=== PATIENT | female | born 1935 | race Caucasian/White ===

== ENCOUNTER 2023-12-17 15:50 | Inpatient (IN) | payer MEDICARE, OTHER, SELFPAY ==
[2023-12-17 15:51] VITALS: BP 152/75; PULSE 111; RESP 17; TEMP 36.4; O2SAT 100
[2023-12-17 15:53] VITALS: BP 152/75; PULSE 111; RESP 17; TEMP 36.4; O2SAT 100
[2023-12-17 16:53] VITALS: BP 142/77; PULSE 81; RESP 16; TEMP 36.4; O2SAT 97
[2023-12-17 17:09] VITALS: BMI 24.9
--- NOTE | 2023-12-17 17:16 | EDS_ITS ---
HPI <ABRAHAM Sears - Last Filed: 12/17/23 18:35> History of Present Illness Chief Complaint: Wound Narrative Narrative: 88-year-old female has no known past medical history but has not seen a doctor in years. She lives alone and her daughter states she has had gradual decline with dementia like symptoms and difficulty getting around. Family members come over to assist with meals and bathing. Her [id number] bathed her recently and noticed a large wound in her left groin prompting them to come in for evaluation. Patient states it has been there for couple weeks but cannot really provide details. She denies fever or chills and has no acute complaints. She takes no medications. Her daughter states they were trying to get her into a residential facility but they would not accept her without a primary care doctor. PFSH <ABRAHAM Sears - Last Filed: 12/17/23 18:35> [facility] Home Medications ?Medication ?Instructions ?Recorded ?Last Taken ?Type NK 12/17/23 Unknown History Allergy/AdvReac Type Severity Reaction Status Date / Time Penicillins Allergy Itching Verified 12/17/23 15:51 Surgical History History of appendectomy Social History (Updated 12/17/23 @ 18:[address] Alaina Montgomery, ) household members: none housing: house Smoking Status: Never smoker alcohol intake: never substance use type: does not use ROS <ABRAHAM Sears - Last Filed: 12/17/23 18:35> ROS ED ROS Narrative Constitutional: Negative for fever, chills, malaise. CVS: Negative for chest pain. Respiratory: Negative for shortness of breath, cough. GI: Negative for abdominal pain, nausea, vomiting, diarrhea. : Negative for dysuria. EXAM <ABRAHAM Sears Last Filed: 12/17/23 18:35> Physical Exam Narrative Exam Narrative: CONST: Patient sitting in no acute distress. EYES: Normal inspection. NECK: Normal inspection. RESP: No respiratory distress, CTAB. CVS: Regular rate and rhythm, no murmur, no gallop. ABD: Soft and nontender, no guarding or rebound, nondistended. SKIN: Large well-demarcated erythematous area with moisture and yeast in left groin fold extending towards the left labia majora. Normal genitalia, no necro sis. No fluctuance or crepitus. EXTREMITIES: Normal appearance, no pedal edema. NEURO: Alert to self and place. Does not know her age or the year. Responds appropriately and follows commands, moving all extremities. PSYCH: Normal affect. Const Vital Signs: 12/17/23 15:51 12/17/23 15:53 12/17/23 16:53 Temperature 97.5 F L 97.5 F L 97.6 F L Temperature Source Temporal Temporal Oral Pulse Rate 111 H 111 H 81 Respiratory Rate 17 17 16 Blood Pressure 152/75 H 152/75 H 142/77 H Blood Pressure Mean 100 100 98 Pulse Ox 100 100 97 Oxygen Delivery Method Room Air Room Air Room Air 12/17/23 18:00 Temperature 97.7 F L Temperature Source Oral Pulse Rate 94 Respiratory Rate 16 Blood Pressure 129/77 H Blood Pressure Mean 94 Pulse Ox 95 Oxygen Delivery Method Room Air <Dr. Vasyl Neves DO - Last Filed: 12/17/23 19:05> Physical Exam Const Vital Signs: 12/17/23 15:51 12/17/23 15:53 12/17/23 16:53 Temperature 97.5 F L 97.5 F L 97.6 F L Temperature Source Temporal Temporal Oral Pulse Rate 111 H 111 H 81 Respiratory Rate 17 17 16 Blood Pressure 152/75 H 152/75 H 142/77 H Blood Pressure Mean 100 100 98 Pulse Ox 100 100 97 Oxygen Delivery Method Room Air Room Air Room Air 12/17/23 18:00 Temperature 97.7 F L Temperature Source Oral Pulse Rate 94 Respiratory Rate 16 Blood Pressure 129/77 H Blood Pressure Mean 94 Pulse Ox 95 Oxygen Delivery Method Room Air MDM <ABRAHAM Sears - Last Filed: 12/17/23 18:35> [facility] Narrative Medical decision making narrative: History gathered from: Patient, daughter 88-year-old female was evaluated for a left groin wound that is consistent with an extensive candidal infection. Family also is concerned for gradual decline at home consistent with likely underlying dementia. Family does not feel she is safe at home and would like her placed in a [facility]. They were unable to do this outpatient because she does not have a primary care doctor. She appears well and nontoxic. She was initially tachycardic at 111, but during my exam heart rate was around 100 bpm and after IV fluids is down to 81. She does not look septic or toxic. White count is 13.9, hemoglobin 14.8, potassium slightly low at 3.0 which was replaced by mouth, BUN 19, creatinine 1.11. UA shows asymptomatic bacteriuria. I discussed the case with hospitalist for admission who plans to give IV Ancef in case there is also cellulitic component of the candidiasis. Patient was admitted to [facility] in stable condition. Lab Data Attestation: I reviewed the patient's lab results. Labs: Laboratory Results - last 24 hr 12/17/23 12/17/23 15:20 17:27 WBC 13.9 H RBC 5.62 H Hgb 14.8 Hct 46.1 MCV 82.0 MCH 26.3 L MCHC 32.1 RDW Std Deviation 41.9 RDW Coeff of [place] 14.2 Plt Count 433 MPV 9.2 Immature Gran % (Auto) 0.500 Neut % (Auto) 86.3 H Lymph % (Auto) 8.1 L [place] % (Auto) 4.3 Eos % (Auto) 0.1 Baso % (Auto) 0.7 Absolute Neuts (auto) 12.0 H Absolute Lymphs (auto) 1.12 Nucleated RBC % 0 Sodium 134 L Potassium 3.0 L Chloride 98 Carbon Dioxide 25.0 Anion Gap 11 BUN 19 H Creatinine 1.11 H Estim Creat Clear Calc 29.65 Est GFR (MDRD) Af Amer 60 Est GFR (MDRD) Non-Af 49 L BUN/Creatinine Ratio 17.1 Glucose 105 Calcium 9.1 Urine Color Odilia Urine Clarity Clear Urine pH 6.0 Ur Specific [place] 1.020 Urine Protein 15 H Urine Glucose (UA) Normal Urine Ketones 5 H Urine Occult Blood 150 H Urine Nitrite Negative Urine Bilirubin 1 H Urine Urobilinogen 1 H Ur Leukocyte Esterase 100 H Urine RBC 0-5 SEEN Urine WBC 0-5 SEEN Ur Squamous Epith Cells 0-5 SEEN Urine Bacteria 2+ Hyaline Casts 0-5 SEEN Urine Mucus 1+ <Dr. Vasyl Neves, DO - Last Filed: 12/17/23 19:05> MDM MDM Narrative Medical decision making narrative: History gathered from: Patient, daughter 88-year-old female was evaluated for a left groin wound that is consistent with an extensive candidal infection. Family also is concerned for gradual decline at home consistent with likely underlying dementia. Family does not feel she is safe at home and would like her placed in a [facility]. They were unable to do this outpatient because she does not have a primary care doctor. She appears well and nontoxic. She was initially tachycardic at 111, but during my exam heart rate was around 100 bpm and after IV fluids is down to 81. She does not look septic or toxic. White count is 13.9, hemoglobin 14.8, potassium slightly low at 3.0 which was replaced by mouth, BUN 19, creatinine 1.11. UA shows asymptomatic bacteriuria. I discussed the case with hospitalist for admission who plans to give IV Ancef in case there is also cellulitic component of the candidiasis. Patient was admitted to [facility] in stable condition. I have personally performed a face to face assessment of the patient and have reviewed the MICHAEL Note. I performed a substantive portion of the visit including all aspects of the following. My pardo findings include: History is 88-year-old female who lives at home is cared for by family. They are looking to get her placed at SNF. She has no primary care doctor and they are having difficulty getting her accepted to facility without 1. Patient has rash on the left inguinal region. No reported fevers. Exam is patient is very pleasant alert but not orientated. Vital signs appear stable slightly hypertensive. She has diffuse erythematous rash in the left inguinal region. There is a sharp line of demarcation on the left upper thigh that would certainly be indicative of a candidiasis infection. The skin on the adipose tissue of the abdomen left lower quadrant is rather thickened and purpleish hue. There is sloughing of the skin. These findings continue into the medial thigh suprapubic region and slightly involve the labia majora. I do not appreciate any evidence at this time of Jake's. I do not appreciate any abscess. Medical Decison Making patient received antibiotics and topical nystatin. Culture of urine will be obtained. Plan is going to be admission for IV antibiotics and treatment of the yeast skin infection. She will need placement. History & Record Review Discussion w/independent historian: Patient and Family Lab Data Labs: Laboratory Results - last 24 hr 12/17/23 12/17/23 15:20 17:27 WBC 13.9 H RBC 5.62 H Hgb 14.8 Hct 46.1 MCV 82.0 MCH 26.3 L MCHC 32.1 RDW Std Deviation 41.9 RDW Coeff of [place] 14.2 Plt Count 433 MPV 9.2 Immature Gran % (Auto) 0.500 Neut % (Auto) 86.3 H Lymph % (Auto) 8.1 L [place] % (Auto) 4.3 Eos % (Auto) 0.1 Baso % (Auto) 0.7 Absolute Neuts (auto) 12.0 H Absolute Lymphs (auto) 1.12 Nucleated RBC % 0 Sodium 134 L Potassium 3.0 L Chloride 98 Carbon Dioxide 25.0 Anion Gap 11 BUN 19 H Creatinine 1.11 H Estim Creat Clear Calc 29.65 Est GFR (MDRD) Af Amer 60 Est GFR (MDRD) Non-Af 49 L BUN/Creatinine Ratio 17.1 Glucose 105 Calcium 9.1 Urine Color Odilia Urine Clarity Clear Urine pH 6.0 Ur Specific [place] 1.020 Urine Protein 15 H Urine Glucose (UA) Normal Urine Ketones 5 H Urine Occult Blood 150 H Urine Nitrite Negative Urine Bilirubin 1 H Urine Urobilinogen 1 H Ur Leukocyte Esterase 100 H Urine RBC 0-5 SEEN Urine WBC 0-5 SEEN Ur Squamous Epith Cells 0-5 SEEN Urine Bacteria 2+ Hyaline Casts 0-5 SEEN Urine Mucus 1+ Discharge Plan Dx/Rx/DC Orders Clinical Impression: Antonina rash of groin, Debility, Hypokalemia, Asymptomatic bacteriuria, Cellulitis of left groin Disposition Disposition: Acute Care [facility] Discharge Date/Time: 12/17/23 19:01
[2023-12-17] MEDS: 0.9% Normal Saline (1000mL) 1,000 ML 999 ML IV (17:19)
[2023-12-17 17:26] LABS: Absolute Lymphocyte Count 1.12 X10^3/uL (0.83-4.51); Basophil% 0.7 % (0-1); Eosinophil# 0.01 X10^3/uL; Eosinophils% 0.1 % (0-5); Hematocrit 46.1 % (37-47); Hemoglobin 14.8 g/dL (12.0-15.0); Lymphocyte # 1.12 X10^3/ul (0.83-4.51); Lymphocyte % 8.1 % (19-41); Mean Corp Hgb Conc 32.1 g/dL (32-36); Mean Corpuscular Hgb 26.3 pg (27.0-32.0); Mean Platelet Vol. 9.2 fl (6.2-12.0); Monocyte% 4.3 % (0-10); NRBC Flagged by Analyzer 0 % (0-5); Neutrophil # 11.98 X10^3/uL (2.7-7.7); Neutrophil % 86.3 % (47-70); Platelet Count 433 K/mm3 (150-450); RBC Distribution Width CV 14.2 % (11.6-14.6); RBC Distribution Width SD 41.9 fl (35.1-43.9); Red Blood Count 5.62 M/mm3 (4.2-5.4); White Blood Count 13.9 K/mm3 (4.4-11.0)
[2023-12-17 17:41] LABS: Color, Urine Amber (Yellow); Glucose, Dipstick Normal (Normal); Ketone-Dipstick 5 mg/dl (Negative); Leukocyte Esterase-Dipstick 100 /ul (Negative); Nitrite-Dipstick Negative (Negative); Occult Blood-Urine 150 /ul (Negative); Protein-Dipstick 15 mg/dl (Negative); Urine Clarity Clear (Clear); Urine Urobilinogen 1 mg/dl (Normal)
[2023-12-17 17:42] LABS: Anion Gap 11 (5-15); BUN 19 mg/dL (7-18); BUN/Creat Ratio 17.1 RATIO (10-20); Calcium,Total 9.1 mg/dL (8.5-10.1); Chloride 98 mmol/L (98-107); Creatinine, Serum 1.11 mg/dL (0.55-1.02); EST Glomerular Filtration Rate 49 mL/min (>60); Est Glom Filt Rate - Afr Amer 60 mL/min (>60); Estimated Creatinine Clearance 29.65 ml/min; Glucose 105 mg/dL (74-106); Sodium Level 134 mmol/L (136-145)
[2023-12-17 18:00] VITALS: BP 129/77; PULSE 94; RESP 16; TEMP 36.5; O2SAT 95
[2023-12-17 18:01] LABS: Urine Bilirubin Dipstick 1 mg/dL (Negative)
[2023-12-17 18:09] LABS: Bacteria 2+ /hpf (None Seen); Mucous, Urine 1+ /hpf (<or=2+)
[2023-12-17 18:10] LABS: Squamous Epithelial Cells - UA 0-5 SEEN /hpf (5-10)
[2023-12-17 18:11] LABS: Hyaline Cast 0-5 SEEN /lpf (0-5); Red Blood Cells-Urine 0-5 SEEN /hpf (0-5); White Blood Cells 0-5 SEEN /hpf (0-5)
[2023-12-17] MEDS: Potassium Chloride Oral Tablet 20 MEQ 40 MEQ PO (18:19)
--- NOTE | 2023-12-17 18:25 | HP.PCM.HOS_ITS ---
HPI - General General Date of Admission: 12/17/23 Date of Service: 12/17/23 Chief Complaint: Left groin wound/debility HPI Narrative MIRI GUZMAN, is a 88 F who presented to the emergency department at [facility] on 12/17/2023 with worsening debility and generalized weakness as well as a left groin wound that has progressively gotten worse.. Patient lives alone and family states they have been trying to get her into a facility as they feel she is currently unable to care for herself and is having progressively worsening debility and memory however they have been unable to do so thus far and then recently family noticed this left groin wound and were concerned it could potentially be infected so brought her to the emergency department. The patient has no significant complaints at the time of admission other than pain in the groin where the wound is located. It appears to be very superficial without any deep tracking areas but is significantly erythematous, tender, and swollen. Patient states she eats too much at home however daughter reports that she is very little overall. Vital signs on presentation showed temperature of 97.5, heart rate 111, blood pressure was 152/75, respiratory rate was 15 and oxygen saturations were 100% on room air. CBC does shows a leukocytosis with a white count of 13.9 and a left shift having 86.3% neutrophilia. Her chemistry panel shows mild hyponatremia with a sodium of 134, hypokalemia with potassium of 3.0 and elevated BUN at 19 with a serum creatinine of 1.11. No recent documentation of serum creatinine is in the chart. Her urine does show some bacteria with no white cells and patient is asymptomatic. Urine specific gravity was 1.02 In the emergency department. IV fluids were given at 1 L and she was given p.o. potassium. PFS no medical history (Patient does not see a medical doctor regularly) Home Medications ?Medication ?Instructions ?Recorded ?Last Taken ?Type NK 12/17/23 Unknown History Allergy/AdvReac Type Severity Reaction Status Date / Time Penicillins Allergy Itching Verified 12/17/23 15:51 unable to obtain (Patient with significant memory difficulties) Surgical History History of appendectomy unable to obtain (Patient with significant memory difficulties) Social History (Updated 12/17/23 @ 18:[address] Alaina Montgomery, DO) household members: none housing: house Smoking Status: Never smoker alcohol intake: never substance use type: does not use ROS Review of Systems ROS Unobtainable: other Details: Difficult to obtain due to patient's memory issues however she has no subjective complaints Vital Signs Vital Signs Vital Signs: 12/17/23 15:51 12/17/23 15:53 12/17/23 16:53 Temperature 97.5 F L 97.5 F L 97.6 F L Temperature Source Temporal Temporal Oral Pulse Rate 111 H 111 H 81 Respiratory Rate 17 17 16 Blood Pressure 152/75 H 152/75 H 142/77 H Blood Pressure Mean 100 100 98 Pulse Ox 100 100 97 Oxygen Delivery Method Room Air Room Air Room Air 12/17/23 18:00 Temperature 97.7 F L Temperature Source Oral Pulse Rate 94 Respiratory Rate 16 Blood Pressure 129/77 H Blood Pressure Mean 94 Pulse Ox 95 Oxygen Delivery Method Room Air Weight Weight: 59.8 kg Body Mass Index (BMI) 24.9 Physical Exam Const alert, no apparent distress and average body habitus; Negative for oriented x3 Constitutional Narrative: Elderly, very pleasant, white female, sitting up in bed, daughter at bedside, patient appears comfortable and nontoxic, oriented to self and place but not time General Appearance: cooperative HEENT normocephalic, head/scalp atraumatic and moist oral mucous membranes; Negative for hearing grossly normal bilaterally HEENT Narrative: Upper dentures in place, lower dentition is poor with decaying teeth, mild to moderate hearing loss Eyes PERRL, EOMs intact bilaterally and conjunctivae normal Eyes Narrative: No scleral icterus Neck no lymphadenopathy and supple Neck Narrative: Trachea midline, no thyroid enlargement Resp normal respiratory effort, no retractions, no use of accessory muscles and clear to auscultation bilaterally Auscultation: Negative for rales, rhonchi or wheezes Cardio regular rate, regular rhythm, S1 normal heart sound, S2 normal heart sound, no murmurs, no rub, no gallops and no clicks GI normal to inspection, nondistended, normoactive bowel sounds, soft to palpation and non-tender Extremity no clubbing, cyanosis or edema Extremity Narrative: Extremely poor nail care with extremely long toenails overlapping and curling, onychomycosis noted, bilateral knees appear to be markedly arthritic Skin Skin Narrative: Large superficial appearing wound on the lower left abdomen and upper thigh deep into the pannus area, no significant purulent drainage or deep wounds with tracking Neuro moves all extremities and no focal motor deficits Neuro Narrative: Significant generalized weakness proximal greater than distal Speech: speech normal Psych affect normal Psych Narrative: Very pleasantly confused, interacts appropriately Results Lab / Micro Data 12/17/23 15:20 12/17/23 15:20 Labs: Laboratory Results - last 24 hr 12/17/23 15:20: WBC 13.9 H, RBC 5.62 H, Hgb 14.8, Hct 46.1, MCV 82.0, MCH 26.3 L , MCHC 32.1, RDW Std Deviation 41.9, RDW Coeff of [place] 14.2, Plt Count 433, MPV 9.2, Immature Gran % (Auto) 0.500, Neut % (Auto) 86.3 H, Lymph % (Auto) 8.1 L, [place] % (Auto) 4.3, Eos % (Auto) 0.1, Baso % (Auto) 0.7, Absolute Neuts (auto) 12.0 H, Absolute Lymphs (auto) 1.12, Nucleated RBC % 0, Sodium 134 L, Potassium 3.0 L, Chloride 98, Carbon Dioxide 25.0, Anion Gap 11, BUN 19 H, Creatinine 1.11 H, Estim Creat Clear Calc 29.65, Est GFR (MDRD) Af Amer 60, Est GFR (MDRD) Non- Af 49 L, BUN/Creatinine Ratio 17.1, Glucose 105, Calcium 9.1 12/17/23 17:27: Urine Color Odilia, Urine Clarity Clear, Urine pH 6.0, Ur Specific [place] 1.020, Urine Protein 15 H, Urine Glucose (UA) Normal, Urine Ketones 5 H, Urine Occult Blood 150 H, Urine Nitrite Negative, Urine Bilirubin 1 H, Urine Urobilinogen 1 H, Ur Leukocyte Esterase 100 H, Urine RBC 0-5 SEEN, Urine WBC 0-5 SEEN, Ur Squamous Epith Cells 0-5 SEEN, Urine Bacteria 2+, Hyaline Casts 0-5 SEEN, Urine Mucus 1+ Assessment & Plan Assessment/Plan (1) Asymptomatic bacteriuria: (2) Hypokalemia: (3) Debility: (4) Antonina rash of groin: (5) Leukocytosis: (6) Hyponatremia: (7) Elevated serum creatinine: (8) Dehydration: (9) Cellulitis of left groin: PLAN: Plan Large left lower abdomen and upper thigh wound/cellulitis -No significant depth to the wound however it is superficially large and extends into the perineum -Start Ancef as patient has penicillin allergy with itching -Cultures pending -Nystatin powder -Wound care consultation Hypokalemia -Patient repleted with 40 mill equivalents p.o. potassium in the emergency department -Repeat in a.m. -Check a.m. magnesium and phosphorus level Elevated serum creatinine secondary to dehydration -Baseline is unclear however patient appears to be dehydrated with a markedly elevated specific gravity of her urine at 1.02 -Was given 1 L IV fluids emergency department -Repeat BMP in a.m. -Highly suspect dehydration as family reports p.o. intake is poor Debility/generalized weakness due to advancing age -PT/OT consultation -Case management/social work consultation for assistance with placement Mild hyponatremia -Sodium is 134 -IV fluids given by emergency department -Liberalized diet -Repeat lab in a.m. Leukocytosis -Highly suspect secondary to above infection as well as dehydration with hemoconcentration -Repeat lab in a.m. Poor p.o. intake -Highly suspect patient is malnourished -Dietitian consult -Add scheduled Ensure -[place] diet Asymptomatic bacteriuria -No treatment required -Suspect related to poor care Poor nail care -Toenails are overgrown and overlapping and curling -Consult podiatry for assistance History of diverticulosis with previous diverticular bleed -Hemoglobin is stable with no signs of blood loss -Monitor clinically Suspected dementia -Patient with significant memory loss and is only oriented x 2 at baseline -No formal diagnosis of dementia however patient does not follow with primary care physician -Patient does not appear to be able to care for herself any longer and will likely need placement at discharge DVT prophylaxis -Subcu Lovenox daily CODE STATUS DNR CCA with no intubation as clarified on admission with POA Charges/Coding Visit Charges Inpatient E&M: 34624 Init Hosp L2
[2023-12-17 18:50] VITALS: BP 129/77; PULSE 94; RESP 16; TEMP 36.5; O2SAT 95
[2023-12-17 19:13] VITALS: BMI 24.5
[2023-12-17 19:24] VITALS: BP 146/81; PULSE 80; RESP 18; TEMP 36.9; O2SAT 100
[2023-12-17] MEDS: 0.9% Saline Lock 10 ML Syringe IV (21:03)
[2023-12-17] MEDS: Cefazolin 1 GM/50 ML BAG IV (21:03)
[2023-12-17] MEDS: Nystatin Powder 15gm Bottle 1 APPLIC TOPICAL (21:03)
[2023-12-17] MEDS: 0.9% Normal Saline (250mL Bag) 250 ML 15 ML IV (21:03)
[2023-12-17] MEDS: Menthol/Lanolin/Calamine/Znox 113 GM Tube 1 APPLIC TOPICAL (21:04)
[2023-12-17] MEDS: Multivitamin (Healthy Eyes) Capsule 1 CAP PO (21:04)
[2023-12-17] MEDS: RisperiDONE 0.25 MG Tablet PO (21:04)
[2023-12-18 02:14] VITALS: BP 137/77; PULSE 72; RESP 16; TEMP 36.5; O2SAT 96
[2023-12-18 05:31] VITALS: BMI 25.0
[2023-12-18] MEDS: Nystatin Powder 15gm Bottle 1 APPLIC TOPICAL ×3 (05:33→22:17)
[2023-12-18] MEDS: Cefazolin 1 GM/50 ML BAG IV ×3 (05:33→22:16)
[2023-12-18] MEDS: Menthol/Lanolin/Calamine/Znox 113 GM Tube 1 APPLIC TOPICAL ×3 (05:34→22:17)
[2023-12-18 07:15] VITALS: O2SAT 95
[2023-12-18 07:17] LABS: Absolute Lymphocyte Count 1.31 X10^3/uL (0.83-4.51); Absolute Neutrophil Count 6.8 X10^3/uL (2.0-7.7); Basophil# 0.06 X10^3/uL; Basophil% 0.7 % (0-1); Eosinophil# 0.09 X10^3/uL; Hematocrit 40.9 % (37-47); Hemoglobin 13.3 g/dL (12.0-15.0); Lymphocyte # 1.31 X10^3/ul (0.83-4.51); Mean Corp Hgb Conc 32.5 g/dL (32-36); Mean Corpuscular Hgb 26.8 pg (27.0-32.0); Mean Corpuscular Volume 82.3 fL (81-99); Mean Platelet Vol. 9.9 fl (6.2-12.0); Monocyte# 0.48 X10^3/uL; Monocyte% 5.5 % (0-10); NRBC Flagged by Analyzer 0 % (0-5); Neutrophil % 77.6 % (47-70); Platelet Count 339 K/mm3 (150-450); RBC Distribution Width CV 14.2 % (11.6-14.6); RBC Distribution Width SD 42.3 fl (35.1-43.9); Red Blood Count 4.97 M/mm3 (4.2-5.4); White Blood Count 8.8 K/mm3 (4.4-11.0)
[2023-12-18 07:55] VITALS: BP 134/73; PULSE 80; RESP 18; TEMP 36.4; O2SAT 100
[2023-12-18] MEDS: Multivitamin (Healthy Eyes) Capsule 1 CAP PO ×2 (07:58→22:16)
[2023-12-18] MEDS: Enoxaparin 30 MG/0.3 ML Syringe SC (07:58)
[2023-12-18 07:59] LABS: ALB/GLOB Ratio 0.6 RATIO (0.9-2.4); AST(SGOT) 17 U/L (15-37); Alanine Aminotransfer ALT/SGPT 10 U/L (13-56); Albumin, Serum 2.2 g/dL (3.2-5.0); Alkaline Phosphatase 210 U/L (45-117); Anion Gap 8 (5-15); BUN 14 mg/dL (7-18); BUN/Creat Ratio 15.9 RATIO (10-20); Calcium,Total 7.9 mg/dL (8.5-10.1); Chloride 106 mmol/L (98-107); Creatinine, Serum 0.88 mg/dL (0.55-1.02); EST Glomerular Filtration Rate 65 mL/min (>60); Est Glom Filt Rate - Afr Amer 78 mL/min (>60); Estimated Creatinine Clearance 37.47 ml/min; Globulin 3.4 g/dL (2.2-4.2); Glucose 105 mg/dL (74-106); Magnesium 2.4 mg/dL (1.6-2.6); Phosphorus 2.3 mg/dL (2.5-4.9); Potassium 3.3 mmol/L (3.5-5.1); Protein, Total 5.6 g/dL (6.4-8.2); Sodium Level 135 mmol/L (136-145); Thyroid Stim Hormone (TSH) 1.29 uIU/mL (0.358-3.74)
--- NOTE | 2023-12-18 13:04 | CASEMGMT ---
Social Work SW met w/pt in room in regard to prior level of function and anticipated discharge plan. SW then called pt's daughter as well to verify the information, as it is documented that pt has a poor memory. PCP: None Specialists: None Pharmacy: None as pt is not on any medications Insurance/Prescription Coverage: Pt has Medicare, [employer]. As per the daughter [employer] is a associate of science in nursing care policy. Pt is not certain if she has prescription coverage or not, she states her risk and insurance consultant takes care of setting her up w/her insurance. LW/POA: Pt states daughter Yuly Pereyra is POA, papers not on the chart. SW asked daughter to bring them in. LNOK: Pt has two children, Yuly and Simone Transportation: As per pt she still drives but daughter gets her groceries. As per daughter, pt no longer drives, as she has macular degeneration. Daughter states pt gave up driving on her own. Living arrangements/Prior level of function: As per pt, she is fully independent at home, does her own personal care, cooking, cleaning. Pt states does not use DME at home, but uses a cane when out. [place] two story home, but stays in a newer addition that is one floor. Pt states that there are people at the farm daily from 6am-8pm who are available to help. As per daughter, pt is not bathing, not changing her clothes. Daughter also states pt has stopped warming up food for herself, and is not eating much. Daughter states pt has to take her teeth out to eat and won't do this in front of daughter so will not eat in front of her. She states pt has memory issues, thinks she has dementia. SNF/HHC/DME: Pt has never been to a SNF. Pt uses a cane at times. Pt has never had home health care. Plan: SNF SW spoke w/pt about plan at discharge. SW provided to pt a list from [facility] of long-term facilities in network w/insurance, in pt's preferred geographic area, and complete w/quality and resource use data. Pt agreeable to SW calling daughter to discuss plan. SW spoke w/daughter about plan. She states pt is not caring for herself and needs to go to SNF, needs nursing care. She states pt is having difficulty ambulating as well. She states they looked at [facility] and has been speaking w/them, but was told pt cannot go there without seeing a PCP first. SW explained now that pt is here in the hospital we may be able to get her into [facility] and will send the referral. SW explained the SNF list is in the room should additional choices be needed. SW explained did speak w/pt about it and pt did not seem opposed to it. She states pt was agreeable to [facility], but then today is saying she wants to go home. SW did review PT w/daughter, pt walked 22 feet contact guard. Daughter will speak w/pt again and agreeable to have SW send the referral. SW sent initial referral to [facility], will continue to follow. MONICA Huber
[2023-12-18] MEDS: 0.9% Normal Saline (250mL Bag) 250 ML 15 ML IV (14:29)
[2023-12-18 14:31] VITALS: BP 101/51; PULSE 84; RESP 18; TEMP 36.3; O2SAT 99
--- NOTE | 2023-12-18 15:42 | PN.HOSP_ITS ---
Reason for Visit Reason for Visit: Diagnoses Other sites of candidiasis (12/17/23) Elevated white blood cell count, unspecified (12/17/23) Dehydration (12/17/23) Hypo-osmolality and hyponatremia (12/17/23) Hypokalemia (12/17/23) Cellulitis of groin (12/17/23) Other malaise (12/17/23) Other specified abnormal findings of blood chemistry (12/17/23) Bacteriuria (12/17/23) Subjective Subjective Patient was seen and examined today, she does not appear to be in any distress at the time my examination, she is on room air at this time, nursing is changing her wound dressing over the left lower abdomen and groin area. Objective Data Objective Data Vital Signs: Vital Signs Temp Pulse Resp BP Pulse Ox O2 Del Method 97.4 F L 84 18 101/51 L 99 Room Air 12/18/23 14:31 12/18/23 14:31 12/18/23 14:31 12/18/23 14:31 12/18/23 14:31 12/18/23 14:31 Oxygen Delivery Method Room Air Weight: 60.056 kg Body Mass Index (BMI) 25.0 Intake & Output: Intake and Output for Last 24 Hours 12/16/23 12/17/23 12/18/23 23:59 23:59 23:59 Intake Total 1050 / 1050 345.25 / 345.25 Output Total 200 / 200 Balance 1050 / 1050 145.25 / 145.25 Lab / Micro Data 12/18/23 06:36 12/18/23 06:36 Labs: Laboratory Results - last 24 hr 12/17/23 15:20: WBC 13.9 H, RBC 5.62 H, Hgb 14.8, Hct 46.1, MCV 82.0, MCH 26.3 L , MCHC 32.1, RDW Std Deviation 41.9, RDW Coeff of Kanchan 14.2, Plt Count 433, MPV 9.2, Immature Gran % (Auto) 0.500, Neut % (Auto) 86.3 H, Lymph % (Auto) 8.1 L, Spalding % (Auto) 4.3, Eos % (Auto) 0.1, Baso % (Auto) 0.7, Absolute Neuts (auto) 12.0 H, Absolute Lymphs (auto) 1.12, Nucleated RBC % 0, Sodium 134 L, Potassium 3.0 L, Chloride 98, Carbon Dioxide 25.0, Anion Gap 11, BUN 19 H, Creatinine 1.11 H, Estim Creat Clear Calc 29.65, Est GFR (MDRD) Af Amer 60, Est GFR (MDRD) Non- Af 49 L, BUN/Creatinine Ratio 17.1, Glucose 105, Calcium 9.1 12/17/23 17:27: Urine Color Odilia, Urine Clarity Clear, Urine pH 6.0, Ur Specific [place] 1.020, Urine Protein 15 H, Urine Glucose (UA) Normal, Urine Ketones 5 H, Urine Occult Blood 150 H, Urine Nitrite Negative, Urine Bilirubin 1 H, Urine Urobilinogen 1 H, Ur Leukocyte Esterase 100 H, Urine RBC 0-5 SEEN, Urine WBC 0-5 SEEN, Ur Squamous Epith Cells 0-5 SEEN, Urine Bacteria 2+, Hyaline Casts 0-5 SEEN, Urine Mucus 1+ 12/18/23 06:36: WBC 8.8, RBC 4.97, Hgb 13.3, Hct 40.9, MCV 82.3, MCH 26.8 L, MCHC 32.5, RDW Std Deviation 42.3, RDW Coeff of Kanchan 14.2, Plt Count 339, MPV 9.9, Immature Gran % (Auto) 0.200, Neut % (Auto) 77.6 H, Lymph % (Auto) 15.0 L, Spalding % (Auto) 5.5, Eos % (Auto) 1.0, Baso % (Auto) 0.7, Absolute Neuts (auto) 6.8, Absolute Lymphs (auto) 1.31, Nucleated RBC % 0, Sodium 135 L, Potassium 3.3 L, Chloride 106, Carbon Dioxide 21.0, Anion Gap 8, BUN 14, Creatinine 0.88, Estim Creat Clear Calc 37.47, Est GFR (MDRD) Af Amer 78, Est GFR (MDRD) Non-Af 65, BUN/Creatinine Ratio 15.9, Glucose 105, Calcium 7.9 L, Phosphorus 2.3 L, Magnesium 2.4, Total Bilirubin 0.70, AST 17, ALT 10 L, Alkaline Phosphatase 210 H, Total Protein 5.6 L, Albumin 2.2 L, Globulin 3.4, Albumin/Globulin Ratio 0.6 L, TSH 1.29 Micro: Microbiology 12/17/23 18:30 Wound - Abdominal Gram Stain - Final 12/17/23 18:30 Wound - Abdominal Wound Culture - Preliminary Gram positive organism Physical Exam Const alert, no apparent distress and well nourished Constitutional Narrative: Patient exhibits mild cognitive impairment HEENT head/scalp atraumatic Head and Scalp: normocephalic Eyes PERRL, EOMs intact bilaterally and conjunctivae normal Neck supple and no JVD Resp normal respiratory effort, no retractions, no use of accessory muscles and clear to auscultation bilaterally Cardio regular rate, regular rhythm, S1 normal heart sound, S2 normal heart sound and no rub GI soft to palpation and non-distended GI Narrative: There is an area of what appears to be ecchymosis over the left lower abdominal fold extending into the left groin area and into the left proximal leg, the skin appears to be darkened in this area, there is no significant open areas noted. Extremity Extremity Narrative: There appears to be some proximal ecchymosis over the left upper leg near the groin area Skin Skin Narrative: Ecchymosis over the left lower abdominal area and left groin area is noted extending into the left upper leg Neuro CN's II-XII intact bilaterally and no sensory deficits noted Sensorium / Orientation: awake, alert and oriented to person Psych Psych Narrative: Patient exhibits mild cognitive impairment Assessment & Plan Assessment/Plan (1) Hypokalemia: PLAN: Plan 1. Hypokalemia-patient will be given additional potassium today, BMP will be rechecked tomorrow #2 mild dehydration-creatinine is improved today, continue IV fluids #3 left groin/lower abdominal ecchymosis-etiology unclear, patient will be seen by wound nurse, I have elected to keep the patient on Ancef at this time #4 generalized debility/fkfx-rkmjdhr-idrfyvm has been seen by PT and OT, it is likely she will need to go to an extended care facility for inpatient rehab services. #5 bacteriuria-this is not significant, I do not believe the patient has cystitis at the present time Total clinical time spent by myself addressing the patient's medical issues, reviewing all of her data, and collaborating with patient's care team: 35 minutes Charges/Coding Visit Charges Inpatient E&M: 71523 Subs Hosp L2
[2023-12-18] MEDS: Potassium Chloride Oral Tablet 20 MEQ 40 MEQ PO (16:31)
[2023-12-18 17:40] VITALS: BP 152/85; PULSE 90; RESP 18; TEMP 36.9; O2SAT 99
[2023-12-18 20:00] VITALS: BP 124/69; PULSE 82; RESP 16; TEMP 36.8; O2SAT 98
[2023-12-18] MEDS: RisperiDONE 0.25 MG Tablet PO (22:16)
[2023-12-19 02:00] VITALS: BP 120/77; PULSE 78; RESP 16; TEMP 36.6; O2SAT 99
[2023-12-19 05:39] VITALS: BMI 25.4
[2023-12-19 05:48] LABS: Anion Gap 7 (5-15); BUN 12 mg/dL (7-18); BUN/Creat Ratio 17.2 RATIO (10-20); Calcium,Total 8.3 mg/dL (8.5-10.1); Chloride 106 mmol/L (98-107); EST Glomerular Filtration Rate 85 mL/min (>60); Est Glom Filt Rate - Afr Amer 102 mL/min (>60); Estimated Creatinine Clearance 41.22 ml/min; Glucose 79 mg/dL (74-106); Potassium 3.6 mmol/L (3.5-5.1); Sodium Level 135 mmol/L (136-145)
[2023-12-19] MEDS: Cefazolin 1 GM/50 ML BAG IV ×3 (06:23→20:15)
[2023-12-19] MEDS: Nystatin Powder 15gm Bottle 1 APPLIC TOPICAL ×3 (06:24→20:06)
--- NOTE | 2023-12-19 08:04 | PCM.PN.HOSP ---
Reason for Visit Reason for Visit: Diagnoses Other sites of candidiasis (12/17/23) Elevated white blood cell count, unspecified (12/17/23) Dehydration (12/17/23) Hypo-osmolality and hyponatremia (12/17/23) Hypokalemia (12/17/23) Cellulitis of groin (12/17/23) Other malaise (12/17/23) Other specified abnormal findings of blood chemistry (12/17/23) Bacteriuria (12/17/23) Subjective Subjective Patient was seen and examined today, she is alert and appropriate today. I did not examine her left lower abdominal wound today, she will see the wound care nurse tomorrow. Patient was seen by podiatry for toenail care. Objective Data Objective Data Vital Signs: Vital Signs Temp Pulse Resp BP Pulse Ox O2 Del Method 98 F 78 16 120/77 99 Room Air 12/19/23 02:00 12/19/23 02:00 12/19/23 02:00 12/19/23 02:00 12/19/23 02:00 12/19/23 07:17 Oxygen Delivery Method Room Air Weight: 61 kg Body Mass Index (BMI) 25.4 Intake & Output: Intake and Output for Last 24 Hours 12/17/23 12/18/23 12/19/23 23:59 23:59 23:59 Intake Total 1050 / 1050 395.25 / 395.25 237.75 / 237.75 Output Total 200 / 200 300 / 300 Balance 1050 / 1050 195.25 / 195.25 -62.25 / -62.25 Lab / Micro Data 12/18/23 06:36 12/19/23 04:47 Labs: Laboratory Results - last 24 hr 12/19/23 04:47: Sodium 135 L, Potassium 3.6, Chloride 106, Carbon Dioxide 22.0, Anion Gap 7, BUN 12, Creatinine 0.70, Estim Creat Clear Calc 41.22, Est GFR (MDRD) Af Amer 102, Est GFR (MDRD) Non-Af 85, BUN/Creatinine Ratio 17.2, Glucose 79, Calcium 8.3 L Micro: Microbiology 12/17/23 18:30 Wound - Abdominal Gram Stain - Final 12/17/23 18:30 Wound - Abdominal Wound Culture - Preliminary Gram positive organism Physical Exam Narrative alert, no apparent distress and well nourished Constitutional Narrative: Patient exhibits mild cognitive impairment HEENT head/scalp atraumatic Head and Scalp: normocephalic Eyes PERRL, EOMs intact bilaterally and conjunctivae normal Neck supple and no JVD Resp normal respiratory effort, no retractions, no use of accessory muscles and clear to auscultation bilaterally Cardio regular rate, regular rhythm, S1 normal heart sound, S2 normal heart sound and no rub GI soft to palpation and non-distended GI Narrative: Patient's left lower abdominal wound/ecchymosis was not examined today Extremity Extremity Narrative: There appears to be some proximal ecchymosis over the left upper leg near the groin area Skin Skin Narrative: Patient's left lower abdominal wound/ecchymosis was not examined today Neuro CN's II-XII intact bilaterally and no sensory deficits noted Sensorium / Orientation: awake, alert and oriented to person Psych Psych Narrative: Patient exhibits mild cognitive impairment Assessment & Plan Assessment/Plan (1) Debility: (2) Hypokalemia: PLAN: Plan 1. Hypokalemia-corrected, patient's potassium today was normal, recheck as necessary #2 mild dehydration-creatinine is improved today, continue IV fluids #3 left groin/lower abdominal ecchymosis-etiology unclear, patient will be seen by wound nurse, I have elected to keep the patient on Ancef at this time #4 generalized debility/cxtq-uorgwbo-pckdlry has been seen by PT and OT, it is likely she will need to go to an extended care facility for inpatient rehab services. #5 bacteriuria-this is not significant, I do not believe the patient has cystitis at the present time Total clinical time spent by myself addressing the patient's medical issues, reviewing all of her data, and collaborating with patient's care team: 35 minutes Charges/Coding Visit Charges Inpatient E&M: 59140 Subs Hosp L2
[2023-12-19 08:28] VITALS: BP 155/60; PULSE 75; RESP 18; TEMP 36.7; O2SAT 94
[2023-12-19] MEDS: Menthol/Lanolin/Calamine/Znox 113 GM Tube 1 APPLIC TOPICAL ×2 (10:15→20:06)
[2023-12-19] MEDS: Enoxaparin 40 MG/0.4 ML Syringe SC (10:17)
[2023-12-19] MEDS: Multivitamin (Healthy Eyes) Capsule 1 CAP PO ×2 (10:17→20:06)
[2023-12-19] MEDS: Fluconazole 100 MG Tablet 200 MG PO (11:45)
[2023-12-19 14:30] VITALS: BP 119/86; PULSE 85; RESP 18; TEMP 36.6; O2SAT 94
[2023-12-19 20:01] VITALS: BP 124/65; PULSE 89; RESP 20; TEMP 36.6; O2SAT 98
[2023-12-19] MEDS: RisperiDONE 0.25 MG Tablet PO (20:06)
[2023-12-20 00:06] VITALS: BP 114/80; PULSE 78; RESP 20; TEMP 36.7; O2SAT 97
[2023-12-20] MEDS: 0.9% Saline Lock 10 ML Syringe IV ×2 (00:07→06:02)
[2023-12-20 05:48] VITALS: BP 121/96; PULSE 72; RESP 18; TEMP 36.6; O2SAT 93
[2023-12-20 06:00] VITALS: BMI 24.6
[2023-12-20] MEDS: Nystatin Powder 15gm Bottle 1 APPLIC TOPICAL (06:03)
[2023-12-20] MEDS: Cefazolin 1 GM/50 ML BAG IV (06:03)
--- NOTE | 2023-12-20 07:39 | PCM.CONS.GEN ---
Assessment & Plan Assessment/Plan (1) Nail dystrophy: (2) Ingrowing nail: PLAN: Plan Evaluation performed. Reduced and debrided toenails 1-5 bilateral using a nail nipper removing bulk, this was done without incident. Podiatry will follow up as needed. Thank you for consultation. HPI Consult Data Date of Consult: 12/20/23 HPI Narrative Reason for Consultation: Toenails HPI Narrative: MIRI GUZMAN, is a 88 F was seen in consultation for long, thickened painful toenails. She is resting in bed, no other complaints. PFSH Medical History Non-smoker Medical History no medical history Home Medications ?Medication ?Instructions ?Recorded ?Last Taken ?Type NK 12/17/23 Unknown History Allergy/AdvReac Type Severity Reaction Status Date / Time aspirin (ASA) Allergy Intermediate Bleeding Verified 12/17/23 19:23 Penicillins Allergy Itching Verified 12/17/23 15:51 Family History unable to obtain Surgical History History of appendectomy Surgical History unable to obtain Social History (Updated 12/17/23 @ 18:[address] Alaina Montgomery, DO) household members: none housing: house Smoking Status: Never smoker alcohol intake: never substance use type: does not use Physical Exam Const alert and no apparent distress Constitutional Narrative: Toenails 1-5 bilateral are elongated, thickened, dystrophic, incurvated as well, no open lesions bilateral, no cellulitis to foot or ankle bilateral, no ecchymosis, no maceration bilateral foot or ankle, CFT < 2 seconds to all toes with no evidence of ischemia to the foot or ankle bilateral. Sensation intact to light touch bilateral. No m/s POP or pain on ROM to the foot or ankle. Lab / Micro Data 12/18/23 06:36 12/19/23 04:47 Micro: Microbiology 12/17/23 18:30 Wound - Abdominal Gram Stain - Final 12/17/23 18:30 Wound - Abdominal Wound Culture - Preliminary Gram positive organism 12/17/23 17:27 Urine, Midstream Urine Culture - Preliminary Culture exhibits no growth.
--- NOTE | 2023-12-20 08:16 | CASEMGMT ---
Discharge Planning Updates sent to [facility]. Ally Clark DC Planning Asst.
[2023-12-20 08:21] VITALS: O2SAT 97
[2023-12-20] MEDS: Menthol/Lanolin/Calamine/Znox 113 GM Tube 1 APPLIC TOPICAL (10:23)
[2023-12-20] MEDS: Enoxaparin 40 MG/0.4 ML Syringe SC (10:24)
[2023-12-20] MEDS: Multivitamin (Healthy Eyes) Capsule 1 CAP PO (10:24)
--- NOTE | 2023-12-20 10:56 | CASEMGMT ---
Discharge Planning [facility] has accepted. SW updated. Ally Clark DC Planning Asst.
[2023-12-20] MEDS: Fluconazole 100 MG Tablet PO (10:59)
--- NOTE | 2023-12-20 11:12 | CASEMGMT ---
Social Work- SW met with pt to advise of acceptance at [facility] and physician plans to d/c. Pt agreeable to plan. SW called dtr Yuly to advise of acceptance and planned d/c. Dtr agreeable to plan as well. Physician updated to acceptance. DCA advised of d/c plans. Plan: [facility]; skilled level of care SID Faustin
[2023-12-20 11:32] VITALS: BP 126/66; PULSE 76; RESP 18; TEMP 36.7; O2SAT 98
--- NOTE | 2023-12-20 11:38 | WOUNDNOTE ---
wound photo: left abdominal fold
--- NOTE | 2023-12-20 11:39 | PCM.TXEXTCAR ---
Diet Diet Order/Speech Therapy: 12/17/23 19:44 Diet: Regular - General Food consistency:: Regular Liquid Consistency:: Regular/Thin Routine Orders/Code Status Code Status: DNRCC-A (no intubation) Wound(s) LT ABD FOLD: Wound Type: shearing s/p yeast/hematoma (Wash left groin area with soap and water daily, keep area dry by placing pillowcase and fold, antifungal powder is not necessary) Therapies Weight Bearing: Full weight bearing Physical Therapy: Eval and Treat Occupational Therapy: Eval and Treat Problem/Diagnosis (1) Nail dystrophy: Status: Acute Code(s): L60.3 - Nail dystrophy (2) Ingrowing nail: Status: Acute Code(s): L60.0 - Ingrowing nail Plan 1. Hypokalemia-corrected #2 mild dehydration-creatinine is improved today, continue IV fluids #3 left groin/lower abdominal ecchymosis-etiology unclear, patient will be seen by wound nurse, I have elected to keep the patient on Ancef at this time #4 generalized debility/izzq-iskcory-sdhlvtr has been seen by PT and OT, it is likely she will need to go to an extended care facility for inpatient rehab services. #5 bacteriuria-this is not significant, I do not believe the patient has cystitis at the present time Total clinical time spent by myself addressing the patient's medical issues, reviewing all of her data, and collaborating with patient's care team: 35 minutes Allergies/Procedures Done in Hospital Allergies aspirin (ASA) Allergy (Intermediate, Verified 12/17/23 19:23) Bleeding internal bleeding. Penicillins Allergy (Verified 12/17/23 15:51) Itching Procedures: None Type of Care/Length of Stay Estimated LOS: Convalescent Care Less Than 30 days Type of Care Needed: Skilled Rehab Potential: Good Prognosis: Good Additional Orders/Day of Discharge H&P will serve as current which was dated: 12/17/23 Day of Discharge: 12/20/23 Dietary and Speech Recommendations Dietitian Recommendations/Changes: Continue with Regular diet for liberalization as well as EPHP TID w/ medpass to help increase protein intakes to promote wound healing. Will continue to follow and modify nutrition interventions as needed. Discharge Plan Admission Admit Date/Time: 12/17/23 18:19 Primary Reason for Your Visit: debility, dehydration, hypokalemia Attending Provider: Demian English Primary Care Provider: Care Physician,No Primary Consulting Providers: Alaina Montgomery; Rosendo Arreola Discharge Orders/Prescriptions Prescriptions: New acetaminophen 325 mg Tablet 650 mg PO Q6H PRN PRN (Reason: Pain 1-10 Or Fever>100.7) Qty: 0 0RF risperidone 0.25 mg Tablet 0.25 mg PO QHS Qty: 0 0RF enoxaparin 40 mg/0.4 mL Syringe 40 mg subcut DAILY Qty: 4 0RF Healthy Eyes 300 mcg-200 mg-27 mg-2 mg Tablet 1 tab PO BID Qty: 1 0RF Ensure Plus High Protein 0.08 gram-1.5 kcal/mL Liquid 120 ml PO TIDCM Qty: 237 0RF Referrals / Follow Up: Care Physician,No Primary [Primary Care Provider] - Disposition Disposition (needs filled in before D/C Order can be placed): [facility]
--- NOTE | 2023-12-20 11:59 | DS.PCM_ITS ---
Providers Date of Admission: 12/17/23 Date of Discharge: 12/20/23 Primary Care Physician: No Primary Care Phys Consultations 12/17/23 19:44 Consult: Podiatry Routine Consulting Provider: Rosendo Arreola Reason for Consult: nail care EMERGENT Consult: No MD Notified: Yes Date Notified: 12/17/23 Time Notified: 18:37 Method of Notification: Text 12/17/23 22:02 Consult: Onc/Wound/licensed certified orthotist Routine Comment: Reason for Consult:: left abdomen wound Reason For Visit: R GROIN WOUND Diagnosis Discharge Diagnosis (1) Nail dystrophy: Status: Acute Code(s): L60.3 - Nail dystrophy (2) Ingrowing nail: Status: Acute Code(s): L60.0 - Ingrowing nail Plan 1. Hypokalemia-corrected #2 mild dehydration-creatinine is improved today, continue IV fluids #3 left groin/lower abdominal ecchymosis-etiology unclear, patient will be seen by wound nurse, I have elected to keep the patient on Ancef at this time #4 generalized debility/khpi-zpfzobs-utxysbs has been seen by PT and OT, it is likely she will need to go to an extended care facility for inpatient rehab services. #5 bacteriuria-this is not significant, I do not believe the patient has cystitis at the present time #6 moderate cognitive impairment-etiology unclear Total clinical time spent by myself addressing the patient's medical issues, reviewing all of her data, and collaborating with patient's care team: 35 minutes Medications at Discharge Home Medications acetaminophen 325 mg tablet 650 mg (2 x 325 mg) PO Q6H PRN PRN Pain 1-10 Or Fever>100.7 #0 tabs 12/20/23 enoxaparin 40 mg/0.4 mL subcutaneous syringe 40 mg (0.4 mL) subcut DAILY #4 mL 12/20/23 food supplemt, lactose-reduced 0.08 gram-1.5 kcal/mL oral liquid (Ensure Plus High Protein) 120 ml PO TIDCM #237 mL 12/20/23 risperidone 0.25 mg tablet 0.25 mg PO QHS #0 tabs 12/20/23 vit A 300 mcg-C 200 mg-E 27 mg-lutein 2 mg and minerals tablet (Healthy Eyes) 1 tab PO BID #1 TAB 12/20/23 Hospital Course Operations None Procedures None Summary of Care Provided Minutes Spent on Discharge: 31 Hospital Course: This 88-year-old white female was seen in the emergency room at [facility] due to a decline in her ADLs at home and difficulty getting around. Patient lives alone, her daughter became concerned and brought her to the emergency room for placement. Daughter stated that she attempted to place the patient in a senior living facility but could not do it because the patient did not have a PCP. Evaluation of the patient in the emergency room showed an elevated white blood cell count of 13.9, potassium was low at 3, creatinine was 1.1, urinalysis showed +2 bacteria but 0-5 white cells and 0-5 RBCs. Patient had an ecchymotic area over her left lower abdominal area extending into the proximal left thigh, there was some minor abrasions over this area. Patient was admitted to [place] [address], she was given potassium replacement and seen by the wound care nurse. Patient was initially placed on IV antibiotics for possible cellulitis-this examiner did not feel she had cellulitis. Urinary culture grew out mixed gram-positive organisms not indicating a urinary tract infection. Patient was seen by PT and OT, she was also seen by podiatry for toenail care. Patient was given IV fluids. On 12/20/2023, patient was seen and examined: On examination she appeared frail and elderly, she does not appear to be in any distress. Vital signs as documented. Skin warm and dry, there was an area of ecchymosis over her left lower abdominal area including her abdominal fold and this area extended into her proximal left thigh anteriorly.. Neck without JVD, thyroid appears normal, trachea is midline, neck is supple. Lungs clear, normal air movement was noted. Heart exam notable for regular rhythm, normal sounds and absence of murmurs, rubs or gallops. Abdomen without evidence of organomegaly, masses, or abdominal aortic enlargement, bowel sounds are present in all 4 quadrants, no abdominal tenderness was noted. Extremities nonedematous, no cyanosis was noted, no clubbing was noted. Neuro: Cranial nerves II through XII are grossly intact, no focal motor deficits were noted, sensation to light touch and pinprick is intact, motor exam 5/5 throughout. Psych: Patient is alert, she exhibits some confusion Patient appears in stable condition for transfer to an extended care facility on 12/20/2023. Weight / BMI Weight Weight: 59.2 kg Body Mass Index (BMI) 24.6 ABG / Lab / Microbiology Data 12/18/23 06:36 12/19/23 04:47 Microbiology: Microbiology 12/17/23 17:27 Urine, Midstream Urine Culture - Final Mixed Gram Positive Organisms 12/17/23 18:30 Wound - Abdominal Gram Stain - Final 12/17/23 18:30 Wound - Abdominal Wound Culture - Preliminary Gram positive organism Meaningful Use Info Meaningful Use Meaningful Use Diagnoses (Choose all that apply): None applicable Ischemic Stroke Statin Dosing Therapy Reference: STATIN DOSE THERAPY REFERENCE: * Patients > 75 years receive moderate or high dose statin therapy. * Patients 75 years or YOUNGER should receive HIGH intensity statin dose unless contraindicated. You will be required to document reason for non-treatment if statin daily dose does not meet guidelines. HIGH DOSE STATIN THERAPY DAILY Atorvastatin > than or = to 40 mg Rosuvastatin > than or = to 20 mg Amlodipine + Atorvastatin > than or = to 2.5/40 mg Ezetimibe + Simvastatin 10/80 mg Simvastatin 80mg Discharge Plan Admission Admit Date/Time: 12/17/23 18:19 Primary Reason for Your Visit: debility, dehydration, hypokalemia Attending Provider: Demian English Primary Care Provider: Care Physician,No Primary Consulting Providers: Alaina Montgomery; Rosendo Arreola Discharge Orders/Prescriptions Prescriptions: New acetaminophen 325 mg Tablet 650 mg PO Q6H PRN PRN (Reason: Pain 1-10 Or Fever>100.7) Qty: 0 0RF risperidone 0.25 mg Tablet 0.25 mg PO QHS Qty: 0 0RF enoxaparin 40 mg/0.4 mL Syringe 40 mg subcut DAILY Qty: 4 0RF Healthy Eyes 300 mcg-200 mg-27 mg-2 mg Tablet 1 tab PO BID Qty: 1 0RF Ensure Plus High Protein 0.08 gram-1.5 kcal/mL Liquid 120 ml PO TIDCM Qty: 237 0RF Referrals / Follow Up: Care Physician,No Primary [Primary Care Provider] - Disposition Disposition (needs filled in before D/C Order can be placed): Intermediate Facility Charges/Coding Visit Charges Inpatient E&M: 40914 Disch Hosp >30min
--- NOTE | 2023-12-20 12:16 | NURSING ---
attempted to call report to [facility] at 1215, no response, will re-attempt
--- NOTE | 2023-12-20 13:23 | CASEMGMT ---
Social Work- SW completed PASSR and transport forms. DCA advised that pt has been determined to be medically ready for d/c by physician and d/c can be completed. Pt advised. Plan: [facility]; skilled level of care. SID Faustin
--- NOTE | 2023-12-20 13:26 | PHA.DC.MR.R ---
Pharmacy [facility] [facility] Reconciliation Pharmacy Service has performed discharge medication reconciliation for this patient upon transfer to SNF. The patient's discharge medication list was reviewed for discrepancies and discrepancies were resolved. Medications at Discharge Home Medications acetaminophen 325 mg tablet 650 mg (2 x 325 mg) PO Q6H PRN PRN Pain 1-10 Or Fever>100.7 #0 tabs 12/20/23 enoxaparin 40 mg/0.4 mL subcutaneous syringe 40 mg (0.4 mL) subcut DAILY #4 mL 12/20/23 food supplemt, lactose-reduced 0.08 gram-1.5 kcal/mL oral liquid (Ensure Plus High Protein) 120 ml PO TIDCM #237 mL 12/20/23 risperidone 0.25 mg tablet 0.25 mg PO QHS #0 tabs 12/20/23 vit A 300 mcg-C 200 mg-E 27 mg-lutein 2 mg and minerals tablet (Healthy Eyes) 1 tab PO BID #1 TAB 12/20/23
--- NOTE | 2023-12-20 14:39 | CASEMGMT ---
Discharge Planning Discharge orders, signed med list, covid results, and transport time sent to [facility] via [facility]. Physicians will transport patient by cot at 5p. Nursing, SW, patient, and her daughter (Yuly) updated. Ally Clark DC Planning Asst.
--- NOTE | 2023-12-20 14:50 | NURSING ---
report called and given to Whitney at [facility]
[2023-12-20 16:40] VITALS: BP 118/82; PULSE 83; RESP 16; TEMP 36.9; O2SAT 96
== END 2023-12-20 17:39 | DRG 316 ==
LOC: ED 18:22 → MS3 18:43
PROVIDERS: Physician Assistant; Admitting Provider Internal Medicine; Emergency Provider Emergency Medicine; Visit Provider Internal Medicine
DX: R58 Hemorrhage, not elsewhere classified (principal); B37.2 Candidiasis of skin and nail; R54 Age-related physical debility; E86.0 Dehydration; E87.6 Hypokalemia; L60.0 Ingrowing nail; L60.3 Nail dystrophy; R82.71 Bacteriuria; R79.89 Other specified abnormal findings of blood chemistry; Z66 Do not resuscitate; Z88.0 Allergy status to penicillin
CPT/HCPCS: 36415; 80048; 80053; 81001; 83735; 84100; 84443; 85025; 87070; 87077; 87086; 87088; 87186; 87205; 87426; 94668; 97110; 97162; 97166; 97530; 97802; 99284; J7030; J7050; A4216

== ENCOUNTER → 2024-02-01 15:00 | Outpatient (REF) | payer OTHER, SELFPAY ==
[2024-02-02 09:07] LABS: Color, Urine Yellow (Yellow); Glucose, Dipstick Normal (Normal); Ketone-Dipstick Negative (Negative); Leukocyte Esterase-Dipstick 500 /ul (Negative); Nitrite-Dipstick Negative (Negative); Occult Blood-Urine 10 /ul (Negative); Protein-Dipstick 15 mg/dl (Negative); Urine Bilirubin Dipstick Negative (Negative); Urine Clarity Turbid (Clear); Urine Urobilinogen Normal (Normal)
== END ==
LOC: OLS.WHLCAR 15:00
PROVIDERS: Visit Provider Internal Medicine
DX: R82.71 Bacteriuria (principal)
CPT/HCPCS: 81002; 87077; 87086; 87088; 87186

== ENCOUNTER → 2024-02-01 | Outpatient (REF) | payer MEDICARE, OTHER, SELFPAY ==
[2024-02-01 08:53] LABS: Absolute Lymphocyte Count 1.78 X10^3/uL (0.83-4.51); Absolute Neutrophil Count 12.5 X10^3/uL (2.0-7.7); Basophil# 0.09 X10^3/uL; Basophil% 0.6 % (0-1); Eosinophil# 0.17 X10^3/uL; Eosinophils% 1.1 % (0-5); Hematocrit 33.2 % (37-47); Hemoglobin 10.5 g/dL (12.0-15.0); Lymphocyte # 1.78 X10^3/ul (0.83-4.51); Lymphocyte % 11.2 % (19-41); Mean Corp Hgb Conc 31.6 g/dL (32-36); Mean Corpuscular Hgb 27.3 pg (27.0-32.0); Mean Corpuscular Volume 86.2 fL (81-99); Mean Platelet Vol. 10.2 fl (6.2-12.0); Monocyte# 1.27 X10^3/uL; NRBC Flagged by Analyzer 0 % (0-5); Neutrophil # 12.51 X10^3/uL (2.7-7.7); Neutrophil % 78.5 % (47-70); Platelet Count 395 K/mm3 (150-450); RBC Distribution Width CV 17.8 % (11.6-14.6); RBC Distribution Width SD 56.4 fl (35.1-43.9); Red Blood Count 3.85 M/mm3 (4.2-5.4); White Blood Count 15.9 K/mm3 (4.4-11.0)
[2024-02-01 09:35] LABS: Anion Gap 7 (5-15); BUN 18 mg/dL (7-18); Calcium,Total 8.3 mg/dL (8.5-10.1); Chloride 108 mmol/L (98-107); Creatinine, Serum 0.64 mg/dL (0.55-1.02); EST Glomerular Filtration Rate 93 mL/min (>60); Est Glom Filt Rate - Afr Amer 112 mL/min (>60); Glucose 88 mg/dL (74-106); Potassium 3.7 mmol/L (3.5-5.1); Sodium Level 140 mmol/L (136-145)
== END ==
LOC: OLS.WHLCAR 05:00
PROVIDERS: Visit Provider Internal Medicine
DX: E44.1 Mild protein-calorie malnutrition (principal)
CPT/HCPCS: 36415; 80048; 85025

== ENCOUNTER → 2024-02-02 | Outpatient (REF) | payer MEDICARE, OTHER, SELFPAY | LOC: OLS.WHLCAR 14:00 | PROVIDERS: Visit Provider Internal Medicine | DX: R19.7 Diarrhea, unspecified (principal) | CPT/HCPCS: 87493 ==

== ENCOUNTER → 2024-02-28 | Outpatient (REF) | payer MEDICARE, OTHER, SELFPAY ==
[2024-02-28 07:44] LABS: Anion Gap 9 (5-15); BUN 38 mg/dL (7-18); BUN/Creat Ratio 56.2 RATIO (10-20); Calcium,Total 8.8 mg/dL (8.5-10.1); Chloride 106 mmol/L (98-107); Creatinine, Serum 0.68 mg/dL (0.55-1.02); EST Glomerular Filtration Rate 87 mL/min (>60); Est Glom Filt Rate - Afr Amer 106 mL/min (>60); Glucose 99 mg/dL (74-106); Potassium 3.9 mmol/L (3.5-5.1); Sodium Level 141 mmol/L (136-145)
== END ==
LOC: OLS.WHLCAR 05:00
PROVIDERS: Visit Provider Internal Medicine
DX: R60.9 Edema, unspecified (principal); L03.314 Cellulitis of groin; F03.90 Unspecified dementia, unspecified severity, without behavioral disturbance, psychotic disturbance, mood disturbance, and anxiety
CPT/HCPCS: 36415; 80048

== ENCOUNTER → 2024-02-29 | Outpatient (REF) | payer MEDICARE, OTHER, SELFPAY ==
[2024-02-29 09:38] LABS: ALB/GLOB Ratio 0.9 RATIO (0.9-2.4); AST(SGOT) 20 U/L (15-37); Alanine Aminotransfer ALT/SGPT 33 U/L (13-56); Albumin, Serum 2.7 g/dL (3.2-5.0); Alkaline Phosphatase 107 U/L (45-117); Anion Gap 5 (5-15); BUN 35 mg/dL (7-18); BUN/Creat Ratio 49.6 RATIO (10-20); Calcium,Total 9.1 mg/dL (8.5-10.1); Chloride 109 mmol/L (98-107); Creatinine, Serum 0.71 mg/dL (0.55-1.02); EST Glomerular Filtration Rate 83 mL/min (>60); Est Glom Filt Rate - Afr Amer 101 mL/min (>60); Glucose 83 mg/dL (74-106); Potassium 4.1 mmol/L (3.5-5.1); Protein, Total 5.7 g/dL (6.4-8.2); Sodium Level 140 mmol/L (136-145)
== END ==
LOC: OLS.WHLCAR 05:00
PROVIDERS: Visit Provider Internal Medicine
DX: R60.9 Edema, unspecified (principal); L03.314 Cellulitis of groin; F03.90 Unspecified dementia, unspecified severity, without behavioral disturbance, psychotic disturbance, mood disturbance, and anxiety
CPT/HCPCS: 36415; 80053

== ENCOUNTER → 2024-03-02 | Outpatient (REF) | payer MEDICARE, OTHER, SELFPAY ==
[2024-03-02 10:24] LABS: Anion Gap 5 (5-15); BUN 29 mg/dL (7-18); BUN/Creat Ratio 38.5 RATIO (10-20); Calcium,Total 8.9 mg/dL (8.5-10.1); Chloride 107 mmol/L (98-107); Creatinine, Serum 0.75 mg/dL (0.55-1.02); EST Glomerular Filtration Rate 77 mL/min (>60); Est Glom Filt Rate - Afr Amer 93 mL/min (>60); Glucose 90 mg/dL (74-106); Potassium 3.8 mmol/L (3.5-5.1); Sodium Level 140 mmol/L (136-145)
== END ==
LOC: OLS.WHLCAR 05:00
PROVIDERS: Visit Provider Internal Medicine
DX: A04.71 Enterocolitis due to Clostridium difficile, recurrent (principal); L03.314 Cellulitis of groin; R82.71 Bacteriuria
CPT/HCPCS: 36415; 80048

== ENCOUNTER → 2024-03-06 | Outpatient (REF) | payer MEDICARE, OTHER, SELFPAY ==
[2024-03-06 10:05] LABS: Anion Gap 7 (5-15); BUN 31 mg/dL (7-18); BUN/Creat Ratio 40.8 RATIO (10-20); Chloride 107 mmol/L (98-107); Creatinine, Serum 0.76 mg/dL (0.55-1.02); EST Glomerular Filtration Rate 76 mL/min (>60); Est Glom Filt Rate - Afr Amer 93 mL/min (>60); Glucose 81 mg/dL (74-106); Potassium 3.9 mmol/L (3.5-5.1); Sodium Level 141 mmol/L (136-145)
== END ==
LOC: OLS.WHLCAR 04:00
PROVIDERS: Visit Provider Internal Medicine
DX: R60.9 Edema, unspecified (principal); L03.314 Cellulitis of groin; F03.90 Unspecified dementia, unspecified severity, without behavioral disturbance, psychotic disturbance, mood disturbance, and anxiety
CPT/HCPCS: 36415; 80048

== ENCOUNTER → 2024-03-13 | Outpatient (REF) | payer MEDICARE, OTHER, SELFPAY ==
[2024-03-13 08:09] LABS: Anion Gap 7 (5-15); BUN 33 mg/dL (7-18); BUN/Creat Ratio 44.8 RATIO (10-20); Calcium,Total 8.9 mg/dL (8.5-10.1); Chloride 108 mmol/L (98-107); Creatinine, Serum 0.74 mg/dL (0.55-1.02); EST Glomerular Filtration Rate 79 mL/min (>60); Est Glom Filt Rate - Afr Amer 96 mL/min (>60); Glucose 81 mg/dL (74-106); Sodium Level 142 mmol/L (136-145)
== END ==
LOC: OLS.WHLCAR 05:00
PROVIDERS: Visit Provider Internal Medicine
DX: R60.9 Edema, unspecified (principal); L03.314 Cellulitis of groin; F03.90 Unspecified dementia, unspecified severity, without behavioral disturbance, psychotic disturbance, mood disturbance, and anxiety
CPT/HCPCS: 36415; 80048

== ENCOUNTER → 2024-03-27 | Outpatient (REF) | payer MEDICARE, OTHER, SELFPAY ==
[2024-03-27 08:02] LABS: AST(SGOT) 29 U/L (15-37); Alanine Aminotransfer ALT/SGPT 34 U/L (13-56); Albumin, Serum 2.8 g/dL (3.2-5.0); Alkaline Phosphatase 126 U/L (45-117); Bilirubin, Direct 0.09 mg/dL (0.00-0.30); Globulin 2.9 g/dL (2.2-4.2); Protein, Total 5.7 g/dL (6.4-8.2)
== END ==
LOC: OLS.WHLCAR 05:00
PROVIDERS: Visit Provider Internal Medicine
DX: Z79.01 Long term (current) use of anticoagulants (principal); G30.9 Alzheimer's disease, unspecified; F02.811 Dementia in other diseases classified elsewhere, unspecified severity, with agitation
CPT/HCPCS: 36415; 80076

== ENCOUNTER → 2024-03-31 | Outpatient (REF) | payer MEDICARE, OTHER, SELFPAY | LOC: OLS.WHLCAR 11:15 | PROVIDERS: Visit Provider Internal Medicine | DX: A04.72 Enterocolitis due to Clostridium difficile, not specified as recurrent (principal) | CPT/HCPCS: 87493 ==

== ENCOUNTER → 2024-03-31 | Outpatient (REF) | payer MEDICARE, OTHER, SELFPAY ==
[2024-03-31 09:12] LABS: ALB/GLOB Ratio 0.8 RATIO (0.9-2.4); AST(SGOT) 14 U/L (15-37); Alanine Aminotransfer ALT/SGPT 22 U/L (13-56); Albumin, Serum 2.5 g/dL (3.2-5.0); Alkaline Phosphatase 158 U/L (45-117); Anion Gap 10 (5-15); BUN 26 mg/dL (7-18); BUN/Creat Ratio 36.4 RATIO (10-20); Calcium,Total 8.8 mg/dL (8.5-10.1); Chloride 101 mmol/L (98-107); Creatinine, Serum 0.72 mg/dL (0.55-1.02); EST Glomerular Filtration Rate 82 mL/min (>60); Est Glom Filt Rate - Afr Amer 99 mL/min (>60); Globulin 3.1 g/dL (2.2-4.2); Glucose 67 mg/dL (74-106); Potassium 2.8 mmol/L (3.5-5.1); Protein, Total 5.6 g/dL (6.4-8.2); Sodium Level 137 mmol/L (136-145)
== END ==
LOC: OLS.WHLCAR 05:00
PROVIDERS: Visit Provider Internal Medicine
DX: R60.9 Edema, unspecified (principal); L03.314 Cellulitis of groin; F03.90 Unspecified dementia, unspecified severity, without behavioral disturbance, psychotic disturbance, mood disturbance, and anxiety
CPT/HCPCS: 36415; 80053

== ENCOUNTER → 2024-04-04 | Outpatient (REF) | payer MEDICARE, OTHER, SELFPAY ==
[2024-04-04 09:10] LABS: Potassium 4.3 mmol/L (3.5-5.1)
== END ==
LOC: OLS.WHLCAR 05:00
PROVIDERS: Visit Provider Internal Medicine
DX: E87.6 Hypokalemia (principal)
CPT/HCPCS: 36415; 84132

== ENCOUNTER → 2024-04-11 | Outpatient (REF) | payer MEDICARE, OTHER, SELFPAY ==
[2024-04-11 08:39] LABS: Anion Gap 5 (5-15); BUN 32 mg/dL (7-18); Chloride 104 mmol/L (98-107); Creatinine, Serum 0.82 mg/dL (0.55-1.02); EST Glomerular Filtration Rate 70 mL/min (>60); Est Glom Filt Rate - Afr Amer 85 mL/min (>60); Glucose 83 mg/dL (74-106); Potassium 4.6 mmol/L (3.5-5.1); Sodium Level 138 mmol/L (136-145)
== END ==
LOC: OLS.WHLCAR 05:00
PROVIDERS: Visit Provider Internal Medicine
DX: E87.6 Hypokalemia (principal); G30.9 Alzheimer's disease, unspecified
CPT/HCPCS: 36415; 80048

== ENCOUNTER → 2024-04-18 | Outpatient (REF) | payer MEDICARE, OTHER, SELFPAY ==
[2024-04-18 08:09] LABS: Anion Gap 5 (5-15); BUN 30 mg/dL (7-18); BUN/Creat Ratio 39.8 RATIO (10-20); Calcium,Total 8.9 mg/dL (8.5-10.1); Chloride 108 mmol/L (98-107); Creatinine, Serum 0.75 mg/dL (0.55-1.02); EST Glomerular Filtration Rate 77 mL/min (>60); Est Glom Filt Rate - Afr Amer 93 mL/min (>60); Glucose 76 mg/dL (74-106); Potassium 4.3 mmol/L (3.5-5.1); Sodium Level 139 mmol/L (136-145)
== END ==
LOC: OLS.WHLCAR 05:00
PROVIDERS: Visit Provider Internal Medicine
DX: E87.6 Hypokalemia (principal); G30.9 Alzheimer's disease, unspecified; E44.1 Mild protein-calorie malnutrition
CPT/HCPCS: 36415; 80048

== ENCOUNTER → 2024-05-01 | Outpatient (REF) | payer MEDICARE, OTHER, SELFPAY ==
[2024-05-01 08:39] LABS: Absolute Lymphocyte Count 2.13 X10^3/uL (0.83-4.51); Absolute Neutrophil Count 6.2 X10^3/uL (2.0-7.7); Basophil# 0.08 X10^3/uL; Basophil% 0.9 % (0-1); Eosinophil# 0.23 X10^3/uL; Eosinophils% 2.4 % (0-5); Hematocrit 34.8 % (37-47); Hemoglobin 11.1 g/dL (12.0-15.0); Lymphocyte # 2.13 X10^3/ul (0.83-4.51); Lymphocyte % 22.6 % (19-41); Mean Corp Hgb Conc 31.9 g/dL (32-36); Mean Corpuscular Hgb 28.5 pg (27.0-32.0); Mean Corpuscular Volume 89.2 fL (81-99); Mean Platelet Vol. 10.1 fl (6.2-12.0); Monocyte# 0.76 X10^3/uL; Monocyte% 8.1 % (0-10); NRBC Flagged by Analyzer 0 % (0-5); Neutrophil # 6.18 X10^3/uL (2.7-7.7); Neutrophil % 65.7 % (47-70); Platelet Count 290 K/mm3 (150-450); RBC Distribution Width CV 15.2 % (11.6-14.6); RBC Distribution Width SD 49.7 fl (35.1-43.9); White Blood Count 9.4 K/mm3 (4.4-11.0)
[2024-05-01 09:21] LABS: AST(SGOT) 21 U/L (15-37); Alanine Aminotransfer ALT/SGPT 23 U/L (13-56); Albumin, Serum 2.8 g/dL (3.2-5.0); Alkaline Phosphatase 105 U/L (45-117); Anion Gap 5 (5-15); BUN 28 mg/dL (7-18); BUN/Creat Ratio 39.9 RATIO (10-20); Calcium,Total 8.8 mg/dL (8.5-10.1); Chloride 106 mmol/L (98-107); EST Glomerular Filtration Rate 84 mL/min (>60); Est Glom Filt Rate - Afr Amer 101 mL/min (>60); Globulin 2.9 g/dL (2.2-4.2); Glucose 74 mg/dL (74-106); Potassium 4.3 mmol/L (3.5-5.1); Protein, Total 5.7 g/dL (6.4-8.2); Sodium Level 138 mmol/L (136-145)
== END ==
LOC: OLS.WHLCAR 05:00
PROVIDERS: Visit Provider Internal Medicine
DX: R60.9 Edema, unspecified (principal); L03.314 Cellulitis of groin; F03.90 Unspecified dementia, unspecified severity, without behavioral disturbance, psychotic disturbance, mood disturbance, and anxiety
CPT/HCPCS: 36415; 80053; 85025

== ENCOUNTER → 2024-05-02 | Outpatient (REF) | payer MEDICARE, OTHER, SELFPAY ==
[2024-05-02 07:40] LABS: Anion Gap 4 (5-15); BUN 27 mg/dL (7-18); BUN/Creat Ratio 36.1 RATIO (10-20); Calcium,Total 9.2 mg/dL (8.5-10.1); Chloride 107 mmol/L (98-107); Creatinine, Serum 0.75 mg/dL (0.55-1.02); EST Glomerular Filtration Rate 78 mL/min (>60); Est Glom Filt Rate - Afr Amer 94 mL/min (>60); Glucose 85 mg/dL (74-106); Potassium 4.4 mmol/L (3.5-5.1); Sodium Level 139 mmol/L (136-145)
== END ==
LOC: OLS.WHLCAR 05:00
PROVIDERS: Visit Provider Internal Medicine
DX: E87.6 Hypokalemia (principal); G30.9 Alzheimer's disease, unspecified; F02.811 Dementia in other diseases classified elsewhere, unspecified severity, with agitation; E44.1 Mild protein-calorie malnutrition
CPT/HCPCS: 36415; 80048

== ENCOUNTER → 2024-05-16 | Outpatient (REF) | payer MEDICARE, OTHER, SELFPAY ==
[2024-05-16 08:02] LABS: Anion Gap 5 (5-15); BUN 23 mg/dL (7-18); BUN/Creat Ratio 27.9 RATIO (10-20); Chloride 105 mmol/L (98-107); Creatinine, Serum 0.82 mg/dL (0.55-1.02); EST Glomerular Filtration Rate 70 mL/min (>60); Est Glom Filt Rate - Afr Amer 84 mL/min (>60); Glucose 84 mg/dL (74-106); Sodium Level 138 mmol/L (136-145)
== END ==
LOC: OLS.WHLCAR 05:00
PROVIDERS: Visit Provider Internal Medicine
DX: E87.6 Hypokalemia (principal)
CPT/HCPCS: 36415; 80048

== ENCOUNTER → 2024-06-05 05:00 | Outpatient (REF) | payer MEDICARE, OTHER, SELFPAY ==
[2024-06-05 09:31] LABS: Anion Gap 4 (5-15); BUN 21 mg/dL (7-18); BUN/Creat Ratio 27.9 RATIO (10-20); Calcium,Total 9.1 mg/dL (8.5-10.1); Chloride 106 mmol/L (98-107); Creatinine, Serum 0.75 mg/dL (0.55-1.02); EST Glomerular Filtration Rate 77 mL/min (>60); Est Glom Filt Rate - Afr Amer 93 mL/min (>60); Glucose 78 mg/dL (74-106); Potassium 4.3 mmol/L (3.5-5.1); Sodium Level 139 mmol/L (136-145)
== END ==
LOC: OLS.WHLCAR 05:00
PROVIDERS: Visit Provider Internal Medicine
DX: R60.9 Edema, unspecified (principal); G30.9 Alzheimer's disease, unspecified; F02.811 Dementia in other diseases classified elsewhere, unspecified severity, with agitation; E87.6 Hypokalemia
CPT/HCPCS: 36415; 80048

== ENCOUNTER → 2024-06-15 05:00 | Outpatient (REF) | payer MEDICARE, OTHER, SELFPAY ==
[2024-06-15 08:38] LABS: Anion Gap 4 (5-15); BUN 26 mg/dL (7-18); BUN/Creat Ratio 30.9 RATIO (10-20); Calcium,Total 8.9 mg/dL (8.5-10.1); Chloride 105 mmol/L (98-107); Creatinine, Serum 0.84 mg/dL (0.55-1.02); EST Glomerular Filtration Rate 68 mL/min (>60); Est Glom Filt Rate - Afr Amer 82 mL/min (>60); Glucose 90 mg/dL (74-106); Potassium 4.1 mmol/L (3.5-5.1); Sodium Level 138 mmol/L (136-145)
== END ==
LOC: OLS.WHLCAR 05:00
PROVIDERS: Visit Provider Internal Medicine
DX: R60.9 Edema, unspecified (principal); G30.9 Alzheimer's disease, unspecified; F02.811 Dementia in other diseases classified elsewhere, unspecified severity, with agitation; E87.6 Hypokalemia
CPT/HCPCS: 36415; 80048

== ENCOUNTER → 2024-06-19 05:00 | Outpatient (REF) | payer MEDICARE, OTHER, SELFPAY ==
[2024-06-19 10:36] LABS: AST(SGOT) 20 U/L (15-37); Alanine Aminotransfer ALT/SGPT 19 U/L (13-56); Alkaline Phosphatase 95 U/L (45-117); Bilirubin, Direct 0.11 mg/dL (0.00-0.30)
== END ==
LOC: OLS.WHLCAR 05:00
PROVIDERS: Visit Provider Internal Medicine
DX: G30.9 Alzheimer's disease, unspecified (principal); F02.811 Dementia in other diseases classified elsewhere, unspecified severity, with agitation; R60.9 Edema, unspecified; Z79.01 Long term (current) use of anticoagulants
CPT/HCPCS: 36415; 80076

== ENCOUNTER → 2024-07-04 05:00 | Outpatient (REF) | payer MEDICARE, OTHER, SELFPAY ==
[2024-07-04 08:39] LABS: Absolute Lymphocyte Count 2.17 X10^3/uL (0.83-4.51); Absolute Neutrophil Count 6.3 X10^3/uL (2.0-7.7); Hematocrit 36.1 % (37-47); Hemoglobin 11.3 g/dL (12.0-15.0); Lymphocyte # 2.17 X10^3/ul (0.83-4.51); Lymphocyte % 22.1 % (19-41); Mean Corp Hgb Conc 31.3 g/dL (32-36); Mean Corpuscular Hgb 28.3 pg (27.0-32.0); Mean Corpuscular Volume 90.5 fL (81-99); Mean Platelet Vol. 10.1 fl (6.2-12.0); Monocyte% 10.2 % (0-10); NRBC Flagged by Analyzer 0 % (0-5); Neutrophil % 64.4 % (47-70); Platelet Count 265 K/mm3 (150-450); RBC Distribution Width CV 14.8 % (11.6-14.6); RBC Distribution Width SD 49.9 fl (35.1-43.9); Red Blood Count 3.99 M/mm3 (4.2-5.4); White Blood Count 9.8 K/mm3 (4.4-11.0)
[2024-07-04 09:21] LABS: ALB/GLOB Ratio 0.9 RATIO (0.9-2.4); AST(SGOT) 17 U/L (15-37); Alanine Aminotransfer ALT/SGPT 18 U/L (13-56); Albumin, Serum 2.9 g/dL (3.2-5.0); Alkaline Phosphatase 101 U/L (45-117); Anion Gap 8 (5-15); BUN 29 mg/dL (7-18); BUN/Creat Ratio 32.2 RATIO (10-20); Calcium,Total 9.2 mg/dL (8.5-10.1); Chloride 105 mmol/L (98-107); EST Glomerular Filtration Rate 63 mL/min (>60); Est Glom Filt Rate - Afr Amer 76 mL/min (>60); Globulin 3.3 g/dL (2.2-4.2); Glucose 78 mg/dL (74-106); Potassium 4.1 mmol/L (3.5-5.1); Protein, Total 6.2 g/dL (6.4-8.2); Sodium Level 138 mmol/L (136-145)
[2024-07-04 10:00] LABS: Hemoglobin A1c 5.1 % (3.8-5.6)
== END ==
LOC: OLS.WHLCAR 05:00
PROVIDERS: Visit Provider Internal Medicine
DX: G30.9 Alzheimer's disease, unspecified (principal); F02.811 Dementia in other diseases classified elsewhere, unspecified severity, with agitation; E44.1 Mild protein-calorie malnutrition; E78.6 Lipoprotein deficiency; R60.9 Edema, unspecified; R52 Pain, unspecified
CPT/HCPCS: 36415; 80053; 83036; 84443; 85025

== ENCOUNTER → 2024-07-20 13:45 | Outpatient (REF) | payer MEDICARE, OTHER, SELFPAY | LOC: OLS.WHLCAR 13:45 | PROVIDERS: Visit Provider Internal Medicine | DX: A04.72 Enterocolitis due to Clostridium difficile, not specified as recurrent (principal) | CPT/HCPCS: 87493 ==

== ENCOUNTER → 2024-11-22 | Outpatient (CLI) | payer MEDICARE, OTHER, SELFPAY ==
--- OUTSIDE RECORDS SUMMARY | 2024-11-22 22:38 | XMS RPT_ITS | CCD ---
Author Organization [facility] Care Team Providers Care Deal Architect Name Role Phone Care Physician, No Primary Primary Care Unava ilable Tickton MAPPING EDITOR, Selina Attending Unavailable Care Physician, No Primary Primary Care Unava ilable Oleghe Efewongbe Attending Unavailable Care Physician, No Primary Primary Care Unava ilable Olechacha Efewjgbe Attending Unavailable Care Physician, No Primary Primary Care Unava ilable Tickton MAPPING EDITOR, Selina Attending Unavailable Care Physician, No Primary Primary Care Unava ilable Demian English Attending Unavailable Alaina Montgomery Consulting Unavailable Alaina Montgomery Admitting Unavailable Rosendo Arreola Consulting Unavailable Care Physician, No Primary Primary Care Unava ilable Oleghe GIGI Efewongbe Attending Unavailabl e Oleghe OLS, Efewongbe Attending Unavailabl e Care Physician, No Primary Primary Care Unava ilable Oleghe GIGI Efewongbe Attending Unavailabl e Care Physician, No Primary Primary Care Unava ilable Care Physician, No Primary Primary Care Unava ilable Oleghe Efewongbe Attending Unavailable Care Physician, No Primary Primary Care Unava ilable Tickton MAPPING EDITOR, Selina Attending Unavailable Care Physician, No Primary Primary Care Unava ilable Tickton MAPPING EDITOR, Selina Attending Unavailable Care Physician, No Primary Primary Care Unava ilable Sumeet Barlow Attending Unavailable Care Physician, No Primary Primary Care Unava ilable Tickton MAPPING EDITOR, Selina Attending Unavailable Care Physician, No Primary Primary Care Unava ilable Tickton MAPPING EDITOR, Selina Attending Unavailable Care Physician, No Primary Primary Care Unava ilable Tick[place] MAPPING EDITOR, Selina Attending Unavailable Care Physician, No Primary Primary Care Unava ilable Oleghe Efewongbe Attending Unavailable Care Physician, No Primary Primary Care Unava ilable Tick[place] MAPPING EDITOR, Selina Attending Unavailable Care Physician, No Primary Primary Care Unava ilable Tickton MAPPING EDITOR, Selina Attending Unavailable Care Physician, No Primary Referring Unava ilable Care Physician, No Primary Primary Care Unava ilable Xiang Basurto Attending Unavailable Oleмаринаe Chanda YU Attending Unavailabl e Care Physician, No Primary Primary Care Unava ilable Oleghe GIGI Efchatoongbe Attending Unavailabl e Care Physician, No Primary Primary Care Unava ilable Care Physician, No Primary Primary Care Unava ilable Oleмаринаe Chanda YU Attending Unavailabl e Care Physician, No Primary Primary Care Unava ilable Yves Rollins Attending Unavailable Care Physician, No Primary Primary Care Unava ilable Chanda Jade Attending Unavailable Alaina Montgomery Consulting Unavailable Alaina Montgomery Attending Unavailable Alaina Montgomery Admitting Unavailable Care Physician, No Primary Primary Care Unava ilable Care Physician, No Primary Primary Care Unava ilable Demian English Attending Unavailable Ulises, Alaina Consulting Unavailable Ulises, Alaina Admitting Unavailable Wugarrick, Rosendo Consulting Unavailable Tereletsky, Demian Consulting Unavailable Care Physician, No Primary Primary Care Unava ilable Demian English Attending Unavailable Ulises, Alaina Consulting Unavailable Ulises, Alaina Admitting Unavailable Wugarrick, Rosendo Consulting Unavailable Tereletsky, Demian Consulting Unavailable Teranita, Demian Attending Unavailable Ulises, Alaina Consulting Unavailable Ulises, Alaina Admitting Unavailable Care Physician, No Primary Primary Care Unava ilable Elba, Rosendo Consulting Unavailable Tereletsky, Demian Consulting Unavailable Care Physician, No Primary Primary Care Unava ilable Selina Shah NP Attending Unavailable Regulo Salbe Attending Unavailabl e Care Physician, No Primary Primary Care Unava ilable Oleghe GIGI Efchatoonglawrence Attending Unavailabl e Care Physician, No Primary Primary Care Unava ilable Care Physician, No Primary Primary Care Unava ilable Oleghe GIGI Efchatoongbe Attending Unavailabl e Care Physician, No Primary Primary Care Unava ilable Oleghe GIGI Efchatoongbe Attending Unavailabl e Oleghe GIGI, Efewongbe Attending Unavailabl e Care Physician, No Primary Primary Care Unava ilable Care Physician, No Primary Primary Care Unava ilable Oleghe GIGI Efchatoongbe Attending Unavailabl e Care Physician, No Primary Primary Care Unava ilable Oleghe GIGI Efchatoongbe Attending Unavailabl e Care Physician, No Primary Primary Care Unava ilable Oleghe OLS, Efewongbe Attending Unavailabl e Oleghe OLS, Efewongbe Attending Unavailabl e Care Physician, No Primary Primary Care Unava ilable Oleghe OLS, Efewongbe Attending Unavailabl e Care Physician, No Primary Primary Care Unava ilable Oleghe OLS, Efewongbe Attending Unavailabl e Care Physician, No Primary Primary Care Unava ilable Care Physician, No Primary Primary Care Unava ilable Oleghe OLS, Efewongbe Attending Unavailabl e Care Physician, No Primary Primary Care Unava ilable Oleghe OLS, Efewongbe Attending Unavailabl e Care Physician, No Primary Primary Care Unava ilable Oleghe OLS, Efewongbe Attending Unavailabl e Care Physician, No Primary Primary Care Unava ilable Oleghe OLS, Efewongbe Attending Unavailabl e Care Physician, No Primary Primary Care Unava ilable Oleghe OLS, Efewongbe Attending Unavailabl e Oleghe OLS, Efewongbe Attending Unavailabl e Care Physician, No Primary Primary Care Unava ilable Care Physician, No Primary Primary Care Unava ilable Oleghe OLS, Efewongbe Attending Unavailabl e Oleghe OLS, Efewongbe Attending Unavailabl e Care Physician, No Primary Primary Care Unava ilable Care Physician, No Primary Primary Care Unava ilable Oleghe OLS, Efewongbe Attending Unavailabl e Care Physician, No Primary Primary Care Unava ilable Oleghe OLS, Efewongbe Attending Unavailabl e Oleghe OLS, Efewongbe Attending Unavailabl e Care Physician, No Primary Primary Care Unava ilable Care Physician, No Primary Primary Care Unava ilable Selina Shah NP Attending Unavailable Allergies Allergy Classification Reported Allergen(s) Allergy Type Date of Onset Reaction(s) Facility (1 source) Aspirin Drug Allergy 12-17-2023 [facility] Repository (1 source) Penicillins Drug allergy (disorder) 12-17-2023 [facility] Repository Problems Active Problems Problem Classification Problem Date Documented Da te Episodic/Chronic Delirium, dementia, and amnestic and other cognitive disorders (4 sources) Alzheimer's disease, unspecified; Translations: [Unspecified dementia without behavioral disturbance] Onset: 05-25-2024 Chronic Diseases of white blood cells (1 source) Elevated white blood cell count, unspecified; Translations: [Elevated white blood cell count, unspecified] Onset: 12-20-2023 Chronic Mood disorders (1 source) Major depressive disorder, single episode, moderate; Translations: [Major depressive disorder, single episode, moderate] Onset: 06-02-2024 Chronic Nutritional deficiencies (2 sources) Mild protein-calorie malnutrition; Translations: [Mild protein-calorie malnutrition] Onset: 06-02-2024 Chronic Unclassified (2 sources) Dementia in other diseases classified elsewhere, unspecified severity, with agitation; Translations: [Dementia in other diseases classified elsewhere, unspecified severity, with agitation] Onset: 06-02-2024 Past or Other Problems Problem Classification Problem Date Documented Date Episodic/Chronic Fluid and electrolyte disorders (4 sources) Hypokalemia; Translations: [Hypo-osmolality and hyponatremia] Onset: 12-20-2023 Episodic Genitourinary symptoms and ill-defined conditions (2 sources) Bacteriuria; Translations: [Bacteriuria] Onset: 12-20-2023 Episodic Intestinal infection (3 sources) Enterocolitis due to Clostridium difficile, not specified as recurrent; Translations: [Enterocolitis due to Clostridium difficile, recurrent] Onset: 05-05-2024 Episodic Malaise and fatigue (1 source) Other malaise; Translations: [Other malaise] Onset: 12-20-2023 Episodic Mycoses (1 source) Other sites of candidiasis; Translations: [Other sites of candidiasis] Onset: 12-20-2023 Episodic Other aftercare (2 sources) [facility] (current) use of anticoagulants; Translations: [middle or intermediate school principal (current) use of anticoagulants] Onset: 05-05-2024 Episodic Other nervous system disorders (1 source) Other symbolic dysfunctions; Translations: [Other symbolic dysfunctions] Onset: 05-25-2024 Episodic Other non-traumatic joint disorders (1 source) Pain in right knee; Translations: [Pain in right knee] Onset: 02-18-2024 Episodic Other non-traumatic joint disorders (1 source) Pain in left knee; Translations: [Pain in left knee] Onset: 02-18-2024 Episodic Other screening for suspected conditions (not mental disorders or infectious disease) (1 source) Other specified abnormal findings of blood chemistry; Translations: [Other specified abnormal findings of blood chemistry] Onset: 12-20-2023 Episodic Other skin disorders (1 source) Nail dystrophy; Translations: [Nail dystrophy] Onset: 12-20-2023 Episodic Other skin disorders (1 source) Ingrowing nail; Translations: [Ingrowing nail] Onset: 12-20-2023 Episodic Residual codes; unclassified (2 sources) Pain, unspecified; Translations: [Pain, unspecified] Onset: 06-02-2024 Episodic Residual codes; unclassified (2 sources) Edema, unspecified; Translations: [Edema, unspecified] Onset: 06-02-2024 Episodic Skin and subcutaneous tissue infections (2 sources) Cellulitis of groin; Translations: [Cellulitis of groin] Onset: 12-20-2023 Episodic Results Test Name Value Interpretation Reference Range Facil ity Knee 4 or More Viewson 02-17 Knee 4 or More Views [facility] [address] [place] [address] Knee 4 or More Views MR#: [id number] Acct: [id number] Name: MIRI GUZMAN V Rep #: [id number] : 1935 F 88 From: Ernie juarez MD PCP: Care Physician,No Primary Status: DEP [facility] Study: Knee 4 or More Views Date of Exam: 02/18/24 Exam# [id number] Ordering Dr: Xiang Basurto MD [id number] INDICATION: pain EXAMINATION/TECHNIQUE: X-RAY - RIGHT XR Knee Complete 4 Views or More COMPARISON: None. FINDINGS: No acute fracture or malalignment. Severe, medial compartment predominant, tricompartmental joint space narrowing and osteophytosis. No joint effusion. Soft tissue swelling of the knee. RAD/Knee 4 or More Views IMPRESSION: Severe, medial compartment predominant, tricompartmental degenerative arthrosis of the knee. Electronically Signed: Ernie Bethea MD at 17:03 EDT , CC: Dr. Xiang Basurto MD; No Primary Care Physician Food Service Clerk: Signed Normal [facility] Knee 4 or More Views [facility] [address] [place] [address] Knee 4 or More Views MR#: [id number] Acct: [id number] Name: MIRI GUZMAN V Rep #: [id number] : 1935 F 88 From: Ernie juarez MD PCP: Care Physician,No Primary Status: DEP AMB Study: Knee 4 or More Views Date of Exam: 02/18/24 Exam# [id number] Ordering Dr: Xiang Basurto MD [id number] INDICATION: pain EXAMINATION/TECHNIQUE: X-RAY - LEFT XR Knee Complete 4 Views or More COMPARISON: None. FINDINGS: No acute fracture or malalignment. Severe, medial compartment predominant, tricompartmental joint space narrowing and osteophytosis. No joint effusion. Soft tissue swelling of the knee. RAD/Knee 4 or More Views IMPRESSION: Severe, medial compartment predominant, tricompartmental degenerative arthrosis of the knee. Electronically Signed: Ernie Bethea MD at 17:03 EDT , CC: Dr. Xiang Basurto MD; No Primary Care Physician Food Service Clerk: Signed Normal [facility] Orthopedic Visit Reporton Orthopedic Visit Report [facility] [address] [place] [address] [address] [place] [address] OFFICE VISIT Date of Service: 02/18/24 MR#: [id number] Acct: [id number] Name: MIRI GUZMAN V Rep #: [id number] : 1935 Provider: Dr. Xiang mar MD Age/Sex: 88/F Location: [facility] Status: Signed with Addenda ADDENDUM by GRAY Jones on 02/18/24 at 0904 Office Procedure Documentation entered by Christi Jones MA 02/18/24 09:04: Ortho Injections Injections Yes Knee Bilateral Is this a patient provided medication?: No Details: Obtained consent for injection. Under sterile conditions, injected the patients Bilateral knees with 2ml Kenalog and 4ml Bupivacaine in each knee. The patient tolerated the injection well without any noted complication. Patient should call our office if redness develops, pain worsens or if they have any concerns. Office Meds Kenalog 40 mg/mL suspension for injection Performing Provider: Xiang Basurto MD Performing Location: [facility] Administered by: Xiang Basurto MD on 02/18/24 09:01 Dose Route Admin Location Dispensed Lot Number Expiration Date NDC Man ufacturer 160 mg intra-articular Bilateral knee 4 mL [id number] 08/29/25 6244-3440-06 [employer] [facility] Date cc: * Signed Intake Vital Signs 12/18/23 10:02 Height 5 ft 1 in Intake Visit Reasons: RIGHT KNEE Chief Complaint: Bilateral knees Accompanied by: Caregiver Is patient in pain?: Yes Pain scale (1-10): 8 Allergies aspirin (ASA) Allergy (Intermediate, Verified 12/17/23 19:23) Bleeding Penicillins Allergy (Verified 12/17/23 15:51) Itching Medications ???Medication ???Instructions ???Recorded ???Confirmed ???Type acetaminophen 325 mg tablet 650 mg (2 x 325 mg) PO Q6H PRN PRN 12/20/23 02/18/24 Rx Pain 1-10 Or Fever>100.7 #0 tabs food supplemt, lactose-reduced 120 ml PO TIDCM #237 mL 12/20/23 02/18/24 Rx 0.08 gram-1.5 kcal/mL oral liquid (Ensure Plus High Protein) risperidone 0.25 mg tablet 0.25 mg PO QHS #0 tabs 12/20/23 02/18/24 Rx vit A 300 mcg-C 200 mg-E 27 1 tab PO BID #1 TAB 12/20/23 02/18/24 Rx mg-lutein 2 mg and minerals tablet (Healthy Eyes) citalopram 10 mg tablet (Celexa) 10 mg PO QDAY 02/18/24 02/18/24 History donepezil 10 mg tablet 10 mg PO QHS 02/18/24 02/18/24 History vancomycin 25 mg/mL oral solution mg PO 02/18/24 02/18/24 History Have you fallen in the past year?: Yes PFSH Medical History Bilateral primary osteoarthritis of knee Bilateral knee pain Ingrowing nail Dehydration Elevated serum creatinine Non-smoker Surgical History History of appendectomy Social History household members: none housing: house Smoking Status: Never smoker alcohol intake: never substance use type: does not use HPI RIGHT KNEE Details: This documentation accurately reflects the service provided and the decisions made by me, Dr. Xiang Basurto MD 02/18/24 0811. Part of today???s visit was documented by [ ], acting as scribe. MIRI GUZMAN is a 88 year old F here today for bilat knee pain. Has been present for a year. No trauma. Mostly present in the anterior aspect of the knee. It comes and goes. The pain is up to an 8 out of 10. The patient is minimally ambulatory needs assistance with transfers and mostly in a wheelchair. Here with the lawn care specialist from the [facility]. No recent treatment no past history of surgery or cortisone injections. Ortho Exam General General: Yes no acute distress Neurologic: Yes alert Psychologic: Yes reasonable and appropriate Right Knee Skin/Wound: Yes CDI, No erythema, No ecchymosis and No swelling Examination: Yes Med jt line tenderness, Yes Lat jt line tenderness, Yes TTP inf pole patella, Yes Crepitus and Yes Pain with flexion Patella Grind: Yes KNEE: rom 10-90 Left Knee Skin/Wound: Yes CDI, No ecchymosis, No erythema and No swelling Examination: Yes med jt line tenderness, Yes Lat jt line tenderness, Yes Crepitus, Yes Pain with flexion and Yes TTP Patellar tendon Patellar Tilt Normal: Yes Patella Grind: Yes KNEE: rom 10-90, nvi bilat Supplemental Info Bilateral knee x-rays taken 4 views of each show advanced degenerative changes both knees. Coding Level of Care Code Attention Consolidator Diagnoses Bilateral knee pain M25.561; M25.562 Bilateral primary osteoarthritis of knee M17.0 Comment 72433 and CPT inject major joint x2 Assessment and Plan Assessment and Plan (1) Bilateral knee pain: Status: Acute Plan: MIRI GUZMAN is a 88 year old F here today for bilat knee pain. Patient has advanced degenerative changes both jeny (more content not included)... Normal [facility] M8200.1075on 12-22-2023 M8200.1075 MRSA MISSED ON ORIGINAL ORDER PATIENT DISCHARGED BEFORE SAMPLE COULD BE COLLECTED Test not performed Normal [facility] Comment on above: Performed By: #### M 100.3000, M100.1999, M8200.1075 #### [facility] [address] [facility]. [place], [place], [id number] Wound Cultureon 12-21-2023 WC #2 Gram positive anisa suggestive of a diphtheroid. Susceptibility not normally performed on this organism Staphylococcus simulans Amount Growth 2+ Gram positive anisa Amount Growth 1+ Strep anginosus Staphylococcus simulans: REACTION cefOXitin Susc Islt NEG Clindamycin Islt YANET 0.25 S Clindamycin.induced Susc Islt NEG Erythromycin Islt YANET <=0.25 S Gentamicin Islt YANET <=0.5 S Oxacillin Susc Islt S Tetracycline Islt YANET <=1 S Vancomycin Islt YANET <=0.5 S Strep anginosus: REACTION Ampicillin Islt YANET I Penicillin G Islt YANET 0.25 I Cefotaxime Islt YANET 0.5 S cefTRIAXone Islt YANET 1 S Clindamycin Islt YANET 0.5 I Erythromycin Islt YANET 0.25 S Vancomycin Islt YANET 1 S [facility] Comment on above: Performed By: #### M 100.3000, M100.1999, M8200.1075 #### [facility] [address], [address] COVID 19 AG RAPID (DARLINE Lewis)on 12-20-2023 SARS-CoV-2 (COVID-19) RNA NIKO+probe Ql (Unsp spec) SARS-CoV-2 (COVID 19) Negative RAPID METHOD Quidel Brigitte Analyzer GAETANO [facility] Comment on above: Performed By: #### M 100.505 #### [facility] [address] [place], [address] Urine Cultureon 12-20-2023 [facility] Below infection leve l. Mixed Gram Positive Organisms Lilly Count 1000-10,000 MIXC Mixed contaminants. Submit a new specimen if indicated. Normal [facility] Comment on above: Performed By: #### M 100.2200 #### [facility] [address] [place], [address] Basic Metabolic Profile (BMP )on 12-19-2023 BUN/CRE 17.2 RATIO Normal 10-20 [facility] Comment on above: Performed By: #### M 100.3000, M1.1999, M8200.1075 #### [facility] [address] [place], [address] CA,Total 8.3 mg/dL Low 8.5-10.1 [facility] Comment on above: Performed By: #### M 100.3000, M1.1999, M8200.1075 #### [facility] [address] [place], [address] Chloride [Moles/Vol] 106 mmol/L Normal 98-107 [facility] Comment on above: Performed By: #### M 100.3000, M1.1999, M8200.1075 #### [facility] [address] [place], [address] CO2 [Moles/Vol] 22.0 mmol/L Normal 21.0-32.0 [facility] Comment on above: Performed By: #### M 100.3000, M100.1999, M8200.1075 #### [facility] [address] [place], [address] Creatinine [Mass/Vol] 0.70 mg/dL Normal 0.55-1.02 [facility] Comment on above: Result Comment: The validity of the calculated GFR GFRAA in patients over 70 years has not been determined. Clinical correlation is essential. Performed By: #### M 100.3000, , M8200.1075 #### [facility] [address] [place], [address] ECRCL 41.22 ml/min Normal [facility] Comment on above: Performed By: #### M 100.2999, , M8200.1075 #### [facility] [address] [place], [address] EST GFR - AA 102 mL/min Normal >60 [facility] Comment on above: Result Comment: Afri can Spanish GFR Calc Performed By: #### M 100.2999, , M8200.1075 #### [facility] [address] [place], [address] GAP 7 Normal 5-15 [facility] Comment on above: Performed By: #### M 100.2999, , M8200.1075 #### [facility] [address] [place], [address] GFR/1.73 sq M.predicted among non-blacks MDRD (S/P/Bld) [Vol rate/Area] 85 mL/min/{1.73_m2} Normal >60 [facility] Comment on above: Result Comment: Non- GFR Calc Performed By: #### M 100.2999, , M8200.1075 #### [facility] [address] [place], [address] Glucose [Mass/Vol] 79 mg/dL Normal 74-106 [facility] Comment on above: Performed By: #### M 100.3000, , M8200.1075 #### [facility] [address] [place], [address] Potassium [Moles/Vol] 3.6 mmol/L Normal 3.5-5.1 [facility] Comment on above: Result Comment: Slig ht Hemolysis, Result may be falsely increased. Performed By: #### M 100.3000, , M8200.1075 #### [facility] [address] [place], [address] Sodium [Moles/Vol] 135 mmol/L Low 136-145 [facility] Comment on above: Performed By: #### M 100.3000, , M8200.1075 #### [facility] [address] [place], [address] Urea nitrogen [Mass/Vol] 12 mg/dL Normal 7-18 [facility] Comment on above: Performed By: #### M 100.3000, , M8200.1075 #### [facility] [address] [place], [address] CBC W/Diff, Automatedon 07-2 0-4 Absolute Lymph 1.31 X10 3/uL Normal 0.83-4.51 [facility] Comment on above: Performed By: #### M 100.3000, , M8200.1075 #### [facility] [address] [place], [address] Absolute Neut 6.8 X10 3/uL Normal 2.0-7.7 [facility] Comment on above: Performed By: #### M 100.3000, , M8200.1075 #### [facility] [address] [place], [address] Basophils/100 WBC (Bld) 0.7 % Normal 0-1 [facility] Comment on above: Performed By: #### M 100.3000, , M8200.1075 #### [facility] [address] [place], [address] Eosinophils/100 WBC (Bld) 1.0 % Normal 0-5 [facility] Comment on above: Performed By: #### M 100.3000, , M8200.1075 #### [facility] [address] [place], [address] Erythrocyte distribution width (RBC) [Ratio] 14.2 % Normal 11.6-14.6 [facility] Comment on above: Performed By: #### M 100.3000, , M8200.1075 #### [facility] [address] [place], [address] Hematocrit (Bld) [Volume fraction] 40.9 % Normal 37-47 [facility] Comment on above: Performed By: #### M 100.3000, , M8200.1075 #### [facility] [address] [place], [address] Hemoglobin (Bld) [Mass/Vol] 13.3 g/dL Normal 12.0-15.0 [facility] Comment on above: Performed By: #### M 100.3000, , M8200.1075 #### [facility] [address] [place], [address] IG% 0.200 Normal 0.0-0.9 [facility] Comment on above: Result Comment: IG% - Immature Granulocytes (promyelocytes, myelocytes and metamyelocytes) > 1% indicates that a LEFT SHIFT is Present. Performed By: #### M 100.3000, , M8200.1075 #### [facility] [address] [place], [address] Lymphocytes/100 WBC (Bld) 15.0 % Low 19-41 [facility] Comment on above: Performed By: #### M 100.3000, , M8200.1075 #### [facility] [address] [place], [address] MCH (RBC) [Entitic mass] 26.8 pg Low 27.0-32.0 [facility] Comment on above: Performed By: #### M 100.3000, , M8200.1075 #### [facility] [address] [place], [address] MCHC (RBC) [Mass/Vol] 32.5 g/dL Normal 32-36 [facility] Comment on above: Performed By: #### M 100.3000, , M8200.1075 #### [facility] [address] [place], [address] MCV (RBC) [Entitic vol] 82.3 fL Normal 81-99 [facility] Comment on above: Performed By: #### M 100.3000, , M8200.1075 #### [facility] [address] [place], [address] Monocytes/100 WBC (Bld) 5.5 % Normal 0-10 [facility] Comment on above: Performed By: #### M 100.3000, , M8200.1075 #### [facility] [address] [place], [address] Neutrophils/100 WBC (Bld) 77.6 % High 47-70 [facility] Comment on above: Performed By: #### M 100.3000, , M8200.1075 #### [facility] [address] [place], [address] Nucleated RBC (Bld) [#/Vol] 0 10*3/uL Normal 0-5 [facility] Comment on above: Performed By: #### M 100.3000, , M8200.1075 #### [facility] [address] [place], [address] Platelet mean volume (Bld) [Entitic vol] 9.9 fL Normal 6.2-12.0 [facility] Comment on above: Performed By: #### M 100.3000, M1, M8200.1075 #### [facility] [address] [place], [address] Platelets (Bld) [#/Vol] 339 10*3/uL Normal 150-450 [facility] Comment on above: Performed By: #### M 100.3000, , M8200.1075 #### [facility] [address] [place], [address] RBC (Bld) [#/Vol] 4.97 10*6/uL Normal 4.2-5.4 [facility] Comment on above: Performed By: #### M 100.3000, , M8200.1075 #### [facility] [address] [place], [address] RDW SD 42.3 fl Normal 35.1-43.9 [facility] Comment on above: Performed By: #### M 100.3000, , M8200.1075 #### [facility] [address] [place], [address] WBC (Bld) [#/Vol] 8.8 10*3/uL Normal 4.4-11.0 [facility] Comment on above: Performed By: #### M 100.3000, , M8200.1075 #### [facility] [address] [place], [address] Comprehensive Metabolic Prof [facility] 12-18-2023 Albumin [Mass/Vol] 2.2 g/dL Low 3.2-5.0 [facility] Comment on above: Performed By: #### M 100.3000, M100.1999, M8200.1075 #### [facility] [address] [place], [address] Albumin/Globulin [Mass ratio] 0.6 {ratio} Low 0.9-2.4 [facility] Comment on above: Performed By: #### M 100.3000, , M8200.1075 #### [facility] [address] [place], [address] ALK P 210 U/L High 45-117 [facility] Comment on above: Performed By: #### M 100.3000, , M8200.1075 #### [facility] [address] [place], [address] ALT [Catalytic activity/Vol] 10 U/L Low 13-56 [facility] Comment on above: Performed By: #### M 100.3000, , M8200.1075 #### [facility] [address] [place], [address] AST [Catalytic activity/Vol] 17 U/L Normal 15-37 [facility] Comment on above: Performed By: #### M 100.3000, , M8200.1075 #### [facility] [address] [place], [address] Bilirubin [Mass/Vol] 0.70 mg/dL Normal 0.20-1.00 [facility] Comment on above: Result Comment: For patients on eltrombopag therapy, use of Dimension [employer] TBIL is not recommended. Performed By: #### M 100.3000, , M8200.1075 #### [facility] [address] [place], [address] BUN/CRE 15.9 RATIO Normal 10-20 [facility] Comment on above: Performed By: #### M 100.3000, , M8200.1075 #### [facility] [address] [place], [address] CA,Total 7.9 mg/dL Low 8.5-10.1 [facility] Comment on above: Performed By: #### M 100.2999, , M8200.1075 #### [facility] [address] [place], [address] Chloride [Moles/Vol] 106 mmol/L Normal 98-107 [facility] Comment on above: Performed By: #### M 100.2999, , M8200.1075 #### [facility] [address] [place], [address] CO2 [Moles/Vol] 21.0 mmol/L Normal 21.0-32.0 [facility] Comment on above: Performed By: #### M 100.2999, , M8200.1075 #### [facility] [address] [place], [address] Creatinine [Mass/Vol] 0.88 mg/dL Normal 0.55-1.02 [facility] Comment on above: Result Comment: The validity of the calculated GFR GFRAA in patients over 70 years has not been determined. Clinical correlation is essential. Performed By: #### M 100.2999, , M8200.1075 #### [facility] [address] [place], [address] ECRCL 37.47 ml/min Normal [facility] Comment on above: Performed By: #### M 100.2999, , M8200.1075 #### [facility] [address] [place], [address] EST GFR - AA 78 mL/min Normal >60 [facility] Comment on above: Result Comment: Afri can Spanish GFR Calc Performed By: #### M 100.3000, , M8200.1075 #### [facility] [address] [place], [address] GAP 8 Normal 5-15 [facility] Comment on above: Performed By: #### M 100.3000, , M8200.1075 #### [facility] [address] [place], [address] GFR/1.73 sq M.predicted among non-blacks MDRD (S/P/Bld) [Vol rate/Area] 65 mL/min/{1.73_m2} Normal >60 [facility] Comment on above: Result Comment: Non- GFR Calc Performed By: #### M 100.3000, , M8200.1075 #### [facility] [address] [place], [address] Globulin (S) [Mass/Vol] 3.4 g/dL Normal 2.2-4.2 [facility] Comment on above: Performed By: #### M 100.2999, , M8200.1075 #### [facility] [address] [place], [address] Glucose [Mass/Vol] 105 mg/dL Normal 74-106 [facility] Comment on above: Result Comment: Fast ing Glucose result from 100 to 125 mg/dL suggests IMPAIRED HOMEOSTASIS per A.D.A. criteria. Performed By: #### M 100.3000, , M8200.1075 #### [facility] [address] [place], [address] Potassium [Moles/Vol] 3.3 mmol/L Low 3.5-5.1 [facility] Comment on above: Performed By: #### M 100.3000, , M8200.1075 #### [facility] [address] [place], [address] Sodium [Moles/Vol] 135 mmol/L Low 136-145 [facility] Comment on above: Performed By: #### M 100.3000, , M8200.1075 #### [facility] [address] [place], [address] T PROT 5.6 g/dL Low 6.4-8.2 [facility] Comment on above: Performed By: #### M 100.3000, , M8200.1075 #### [facility] [address] [place], [address] Urea nitrogen [Mass/Vol] 14 mg/dL Normal 7-18 [facility] Comment on above: Performed By: #### M 100.3000, , M8200.1075 #### [facility] [address] [place], [address] Gram Stainon 12-18-2023 GS Positive Normal [facility] Comment on above: Performed By: #### M 100.3000, , M8200.1075 #### [facility] [address] [place], [address] Magnesiumon 12-18-2023 Magnesium [Mass/Vol] 2.4 mg/dL Normal 1.6-2.6 [facility] Comment on above: Performed By: #### M 100.3000, , M8200.1075 #### [facility] [address] [place], [address] Phosphoruson 12-18-2023 Phosphate [Mass/Vol] 2.3 mg/dL Low 2.5-4.9 [facility] Comment on above: Performed By: #### M 100.3000, , M8200.1075 #### [facility] [address] [place], [address] Thyroid Stim Hormone (TSH)on 12-18-2023 TSH 1.29 uIU/mL Normal 0.358-3.74 [facility] Comment on above: Performed By: #### M 100.3000, , M8200.1075 #### [facility] [address] [place], [address] Basic Metabolic Profile (BMP )on 12-17-2023 BUN/CRE 17.1 RATIO Normal 10-20 [facility] Comment on above: Performed By: #### L 100.0100, L500.2500 #### [facility] [address] [place], [address] CA,Total 9.1 mg/dL Normal 8.5-10.1 [facility] Comment on above: Performed By: #### L 100.0100, L500.2500 #### [facility] [address] [place], [address] Chloride [Moles/Vol] 98 mmol/L Normal 98-107 [facility] Comment on above: Performed By: #### L 100.0100, L500.2500 #### [facility] [address] [place], [address] CO2 [Moles/Vol] 25.0 mmol/L Normal 21.0-32.0 [facility] Comment on above: Performed By: #### L 100.0100, L500.2500 #### [facility] [address] [place], [address] Creatinine [Mass/Vol] 1.11 mg/dL High 0.55-1.02 [facility] Comment on above: Result Comment: The validity of the calculated GFR GFRAA in patients over 70 years has not been determined. Clinical correlation is essential. Performed By: #### L 100.0100, L500.2500 #### [facility] [address] [place], [address] ECRCL 29.65 ml/min Normal [facility] Comment on above: Performed By: #### L 100.0100, L500.2500 #### [facility] [address] [place], [address] EST GFR - AA 60 mL/min Normal >60 [facility] Comment on above: Result Comment: Afri can Spanish GFR Calc Performed By: #### L 100.0100, L500.2500 #### [facility] [address] [place], [address] GAP 11 Normal 5-15 [facility] Comment on above: Performed By: #### L 100.0100, L500.2500 #### [facility] [address] [place], [address] GFR/1.73 sq M.predicted among non-blacks MDRD (S/P/Bld) [Vol rate/Area] 49 mL/min/{1.73_m2} Low >60 [facility] Comment on above: Result Comment: Non- GFR Calc Performed By: #### L 100.0100, L500.2500 #### [facility] [address] [place], [address] Glucose [Mass/Vol] 105 mg/dL Normal 74-106 [facility] Comment on above: Result Comment: Fast ing Glucose result from 100 to 125 mg/dL suggests IMPAIRED HOMEOSTASIS per A.D.A. criteria. Performed By: #### L 100.0100, L500.2500 #### [facility] [address] [place], [address] Potassium [Moles/Vol] 3.0 mmol/L Low 3.5-5.1 [facility] Comment on above: Result Comment: Slig ht Hemolysis, Result may be falsely increased. Performed By: #### L 100.0100, L500.2500 #### [facility] [address] [place], [address] Sodium [Moles/Vol] 134 mmol/L Low 136-145 [facility] Comment on above: Performed By: #### L 100.0100, L500.2500 #### [facility] [address] [place], [address] Urea nitrogen [Mass/Vol] 19 mg/dL High 7-18 [facility] Comment on above: Performed By: #### L 100.0100, L500.2500 #### [facility] [address] [place], [address] CBC W/Diff, Automatedon 07- Absolute Lymph 1.12 X10 3/uL Normal 0.83-4.51 [facility] Comment on above: Performed By: #### L 100.0100, L500.2500 #### [facility] [address] [place], [address] Absolute Neut 12.0 X10 3/uL High 2.0-7.7 [facility] Comment on above: Performed By: #### L 100.0100, L500.2500 #### [facility] [address] [place], [address] Basophils/100 WBC (Bld) 0.7 % Normal 0-1 [facility] Comment on above: Performed By: #### L 100.0100, L500.2500 #### [facility] [address] [place], [address] Eosinophils/100 WBC (Bld) 0.1 % Normal 0-5 [facility] Comment on above: Performed By: #### L 100.0100, L500.2500 #### [facility] [address] [place], [address] Erythrocyte distribution width (RBC) [Ratio] 14.2 % Normal 11.6-14.6 [facility] Comment on above: Performed By: #### L 100.0100, L500.2500 #### [facility] [address] [place], [address] Hematocrit (Bld) [Volume fraction] 46.1 % Normal 37-47 [facility] Comment on above: Performed By: #### L 100.0100, L500.2500 #### [facility] [address] [place], [address] Hemoglobin (Bld) [Mass/Vol] 14.8 g/dL Normal 12.0-15.0 [facility] Comment on above: Performed By: #### L 100.0100, L500.2500 #### [facility] [address] [place], [address] IG% 0.500 Normal 0.0-0.9 [facility] Comment on above: Result Comment: IG% - Immature Granulocytes (promyelocytes, myelocytes and metamyelocytes) > 1% indicates that a LEFT SHIFT is Present. Performed By: #### L 100.0100, L500.2500 #### [facility] [address] [place], [address] Lymphocytes/100 WBC (Bld) 8.1 % Low 19-41 [facility] Comment on above: Performed By: #### L 100.0100, L500.2500 #### [facility] [address] [place], [address] MCH (RBC) [Entitic mass] 26.3 pg Low 27.0-32.0 [facility] Comment on above: Performed By: #### L 100.0100, L500.2500 #### [facility] [address] [place], [address] MCHC (RBC) [Mass/Vol] 32.1 g/dL Normal 32-36 [facility] Comment on above: Performed By: #### L 100.0100, L500.2500 #### [facility] [address] [place], [address] MCV (RBC) [Entitic vol] 82.0 fL Normal 81-99 [facility] Comment on above: Performed By: #### L 100.0100, L500.2500 #### [facility] [address] [place], [address] Monocytes/100 WBC (Bld) 4.3 % Normal 0-10 [facility] Comment on above: Performed By: #### L 100.0100, L500.2500 #### [facility] [address] [place], [address] Neutrophils/100 WBC (Bld) 86.3 % High 47-70 [facility] Comment on above: Performed By: #### L 100.0100, L500.2500 #### [facility] [address] [place], [address] Nucleated RBC (Bld) [#/Vol] 0 10*3/uL Normal 0-5 [facility] Comment on above: Performed By: #### L 100.0100, L500.2500 #### [facility] [address] [place], [address] Platelet mean volume (Bld) [Entitic vol] 9.2 fL Normal 6.2-12.0 [facility] Comment on above: Performed By: #### L 100.0100, L500.2500 #### [facility] [address] [place], [address] Platelets (Bld) [#/Vol] 433 10*3/uL Normal 150-450 [facility] Comment on above: Performed By: #### L 100.0100, L500.2500 #### [facility] [address] [place], [address] RBC (Bld) [#/Vol] 5.62 10*6/uL High 4.2-5.4 [facility] Comment on above: Performed By: #### L 100.0100, L500.2500 #### [facility] [address] [place], [address] RDW SD 41.9 fl Normal 35.1-43.9 [facility] Comment on above: Performed By: #### L 100.0100, L500.2500 #### [facility] [address] [place], [address] WBC (Bld) [#/Vol] 13.9 10*3/uL High 4.4-11.0 [facility] Comment on above: Performed By: #### L 100.0100, L500.2500 #### [facility] [address] [place], [address] Emergency Department Summary on 12-17-2023 Emergency Department Summary [facility] Medical Records Department [address] [place] [address] Emergency Department Summary 12/17/23 MR#: [id number] Acct: [id number] Name: MIRI GUZMAN V Rep #: [id number] : 1935 88 From: Stacey ROSARIO PCP: Care Physician,No Primary Status:ADM IN Location: [address] History of Present Illness Chief Complaint: Wound Narrative Narrative: 88-year-old female has no known past medical history but has not seen a doctor in years. She lives alone and her daughter states she has had gradual decline with dementia like symptoms and difficulty getting around. Family members come over to assist with meals and bathing. Her [id number] bathed her recently and noticed a large wound in her left groin prompting them to come in for evaluation. Patient states it has been there for couple weeks but cannot really provide details. She denies fever or chills and has no acute complaints. She takes no medications. Her daughter states they were trying to get her into a retirement facility but they would not accept her without a primary care doctor. PFSH PFS Home Medications ???Medication ???Instructions ???Recorded ???Last Taken ???Type NK 12/17/23 Unknown History Allergy/AdvReac Type Severity Reaction Status Date / Time Penicillins Allergy Itching Verified 12/17/23 15:51 Surgical History History of appendectomy Social History (Updated 12/17/23 @ 18:[address] Alaina Montgomery, DO) household members: none housing: house Smoking Status: Never smoker alcohol intake: never substance use type: does not use ROS ROS ED ROS Narrative Constitutional: Negative for fever, chills, malaise. CVS: Negative for chest pain. Respiratory: Negative for shortness of breath, cough. GI: Negative for abdominal pain, nausea, vomiting, diarrhea. : Negative for dysuria. EXAM Physical Exam Narrative Exam Narrative: CONST: Patient sitting in no acute distress. EYES: Normal inspection. NECK: Normal inspection. RESP: No respiratory distress, CTAB. CVS: Regular rate and rhythm, no murmur, no gallop. ABD: Soft and nontender, no guarding or rebound, nondistended. SKIN: Large well-demarcated erythematous area with moisture and yeast in left groin fold extending towards the left labia majora. Normal genitalia, no necrosis. No fluctuance or crepitus. EXTREMITIES: Normal appearance, no pedal edema. NEURO: Alert to self and place. Does not know her age or the year. Responds appropriately and follows commands, moving all extremities. PSYCH: Normal affect. Const Vital Signs: 12/17/23 15:51 12/17/23 15:53 12/17/23 16:53 Temperature 97.5 F L 97.5 F L 97.6 F L Temperature Source Temporal Temporal Oral Pulse Rate 111 H 111 H 81 Respiratory Rate 17 17 16 Blood Pressure 152/75 H 152/75 H 142/77 H Blood Pressure Mean 100 100 98 Pulse Ox 100 100 97 Oxygen Delivery Method Room Air Room Air Room Air 12/17/23 18:00 Temperature 97.7 F L Temperature Source Oral Pulse Rate 94 Respiratory Rate 16 Blood Pressure 129/77 H Blood Pressure Mean 94 Pulse Ox 95 Oxygen Delivery Method Room Air Physical Exam Const Vital Signs: 12/17/23 15:51 12/17/23 15:53 12/17/23 16:53 Temperature 97.5 F L 97.5 F L 97.6 F L Temperature Source Temporal Temporal Oral Pulse Rate 111 H 111 H 81 Respiratory Rate 17 17 16 Blood Pressure 152/75 H 152/75 H 142/77 H Blood Pressure Mean 100 100 98 Pulse Ox 100 100 97 Oxygen Delivery Method Room Air Room Air Room Air 12/17/23 18:00 Temperature 97.7 F L Temperature Source Oral Pulse Rate 94 Respiratory Rate 16 Blood Pressure 129/77 H Blood Pressure Mean 94 Pulse Ox 95 Oxygen Delivery Method Room Air MDM MDM MDM Narrative Medical decision making narrative: History gathered from: Patient, daughter 88-year-old female was evaluated for a left groin wound that is consistent with an extensive candidal infection. Family also is concerned for gradual decline at home consistent with likely underlying dementia. Family does not feel she is safe at home and would like her placed in a half-way. They were unable to do this outpatient because she does not have a primary care doctor. She appears well and nontoxic. She was initially tachycardic at 111, but during my exam heart rate was around 100 bpm and after IV fluids is down to 81. She does not look septic or toxic. White count is 13.9, hemoglobin 14.8, potassium slightly low at 3.0 which was replaced by mouth, BUN 19, creatinine 1.11. UA shows asymptomatic bacteriuria. I discussed the case with hospitalist for admission who plans to give IV Ancef in case there is also cellulitic componen (more content not included)... Normal [facility] H AND P Exam - [facility] 12-17-2023 H&P Exam - Hospitalist [facility] Medical Records Department [address] [place] [address] H P Exam - Hospitalist 12/17/23 1825 MR#: [id number] Acct: [id number] Name: MIRI GUZMAN V Rep #: [id number] : 1935 88 From: Alaina Montgomery DO PCP: Care Physician,No Primary Status:ADM IN [facility] - General General Date of Admission: 12/17/23 Date of Service: 12/17/23 Chief Complaint: Left groin wound/debility HPI Narrative MIRI GUZMAN, is a 88 F who presented to the emergency department at [facility] on 12/17/2023 with worsening debility and generalized weakness as well as a left groin wound that has progressively gotten worse.. Patient lives alone and family states they have been trying to get her into a facility as they feel she is currently unable to care for herself and is having progressively worsening debility and memory however they have been unable to do so thus far and then recently family noticed this left groin wound and were concerned it could potentially be infected so brought her to the emergency department. The patient has no significant complaints at the time of admission other than pain in the groin where the wound is located. It appears to be very superficial without any deep tracking areas but is significantly erythematous, tender, and swollen. Patient states she eats too much at home however daughter reports that she is very little overall. Vital signs on presentation showed temperature of 97.5, heart rate 111, blood pressure was 152/75, respiratory rate was 15 and oxygen saturations were 100% on room air. CBC does shows a leukocytosis with a white count of 13.9 and a left shift having 86.3% neutrophilia. Her chemistry panel shows mild hyponatremia with a sodium of 134, hypokalemia with potassium of 3.0 and elevated BUN at 19 with a serum creatinine of 1.11. No recent documentation of serum creatinine is in the chart. Her urine does show some bacteria with no white cells and patient is asymptomatic. Urine specific gravity was 1.02 In the emergency department. IV fluids were given at 1 L and she was given p.o. potassium. PFSH no medical history (Patient does not see a medical doctor regularly) Home Medications ???Medication ???Instructions ???Recorded ???Last Taken ???Type NK 12/17/23 Unknown History Allergy/AdvReac Type Severity Reaction Status Date / Time Penicillins Allergy Itching Verified 12/17/23 15:51 unable to obtain (Patient with significant memory difficulties) Surgical History History of appendectomy unable to obtain (Patient with significant memory difficulties) Social History (Updated 12/17/23 @ 18:[address] Alaina Montgomery, ) household members: none housing: house Smoking Status: Never smoker alcohol intake: never substance use type: does not use ROS Review of Systems ROS Unobtainable: other Details: Difficult to obtain due to patient's memory issues however she has no subjective complaints Vital Signs Vital Signs Vital Signs: 12/17/23 15:51 12/17/23 15:53 12/17/23 16:53 Temperature 97.5 F L 97.5 F L 97.6 F L Temperature Source Temporal Temporal Oral Pulse Rate 111 H 111 H 81 Respiratory Rate 17 17 16 Blood Pressure 152/75 H 152/75 H 142/77 H Blood Pressure Mean 100 100 98 Pulse Ox 100 100 97 Oxygen Delivery Method Room Air Room Air Room Air 12/17/23 18:00 Temperature 97.7 F L Temperature Source Oral Pulse Rate 94 Respiratory Rate 16 Blood Pressure 129/77 H Blood Pressure Mean 94 Pulse Ox 95 Oxygen Delivery Method Room Air Weight Weight: 59.8 kg Body Mass Index (BMI) 24.9 Physical Exam Const alert, no apparent distress and average body habitus; Negative for oriented x3 Constitutional Narrative: Elderly, very pleasant, white female, sitting up in bed, daughter at bedside, patient appears comfortable and nontoxic, oriented to self and place but not time General Appearance: cooperative HEENT normocephalic, head/scalp atraumatic and moist oral mucous membranes; Negative for hearing grossly normal bilaterally HEENT Narrative: Upper dentures in place, lower dentition is poor with decaying teeth, mild to moderate hearing loss Eyes PERRL, EOMs intact bilaterally and conjunctivae normal Eyes Narrative: No scleral icterus Neck no lymphadenopathy and supple Neck Narrative: Trachea midline, no thyroid enlargement Resp normal respiratory effort, no retractions, no use of accessory muscles and clear to auscultation bilaterally Auscultation: Negative for rales, rhonchi or wheezes Cardio regular rate, regular rhythm, S1 normal heart sound, S2 normal heart sound, no murmurs, no rub, no gallops and no clicks GI normal to inspection, nondistended, normoac (more content not included)... Normal [facility] Urinalysis, Completeon 12-16 CAST,HYALINE 0-5 SEEN Normal 0-5 [facility] Comment on above: Order Comment: COLOR OF URINE MAY AFFECT DIPSTICK RESULTS. REPAIRER HELPER TO SPECIFY Performed By: #### L [id number] #### [facility] [address] [place], [place], [address] (046) RBC 0-5 SEEN Normal 0-5 [facility] Comment on above: Order Comment: COLOR OF URINE MAY AFFECT DIPSTICK RESULTS. REPAIRER HELPER TO SPECIFY Performed By: #### L [id number] #### [facility] [address] [place], [address] WBC 0-5 SEEN Normal 0-5 [facility] Comment on above: Order Comment: COLOR OF URINE MAY AFFECT DIPSTICK RESULTS. REPAIRER HELPER TO SPECIFY Performed By: #### L [id number] #### [facility] [address] [place], [address] EPI,SQUAMOUS 0-5 SEEN Normal 5-10 [facility] Comment on above: Order Comment: COLOR OF URINE MAY AFFECT DIPSTICK RESULTS. REPAIRER HELPER TO SPECIFY Performed By: #### L [id number] #### [facility] [address] [place], [address] BACTERIA 2+ /hpf Normal None Seen [facility] Comment on above: Order Comment: COLOR OF URINE MAY AFFECT DIPSTICK RESULTS. REPAIRER HELPER TO SPECIFY Performed By: #### L [id number] #### [facility] [address] [place], [address] Mucus Ql (Urine sed) 1+ /hpf Normal [facility] Comment on above: Order Comment: COLOR OF URINE MAY AFFECT DIPSTICK RESULTS. REPAIRER HELPER TO SPECIFY Performed By: #### L [id number] #### [facility] [address] [place], [address] Encounters Encounter Date Encounter Type Care Provider Facility Start: 08-29-2024 End: 08-29-2024 ambulatory No Primary Care Physician Facility:[facility] Start: 08-01-2024 End: 08-01-2024 ambulatory No Primary Care Physician Facility:[facility] Start: 07-20-2024 ambulatory No Primary Car e Physician Facility:[facility] Start: 07-13-2024 End: 07-13-2024 ambulatory No Primary Care Physician Facility:[facility] Start: 07-04-2024 ambulatory Efewjgbe Yadie OLS Fa cility:[facility] Start: 06-27-2024 End: 06-27-2024 ambulatory No Primary Care Physician [facility] Start: 06-19-2024 ambulatory Efewjgbe Yadie OLS Fa cility:[facility] Start: 06-15-2024 ambulatory No Primary Car e Physician Facility:[facility] Start: 06-12-2024 End: 06-12-2024 ambulatory No Primary Care Physician [facility] Start: 06-06-2024 End: 06-06-2024 ambulatory No Primary Care Physician Facility[facility] Start: 06-05-2024 ambulatory Efewongbe Oleghe OLS Fa cility:[facility] Start: 05-16-2024 End: 05-16-2024 ambulatory No Primary Care Physician Facility:[facility] Start: 05-02-2024 End: 05-02-2024 ambulatory No Primary Care Physician Facility:[facility] Start: 05-01-2024 End: 05-01-2024 ambulatory No Primary Care Physician Facility:[facility] Start: 04-18-2024 End: 04-18-2024 ambulatory No Primary Care Physician Facility:[facility] Start: 04-11-2024 End: 04-11-2024 ambulatory No Primary Care Physician Facility:[facility] Start: 04-04-2024 End: 04-04-2024 ambulatory No Primary Care Physician Facility:[facility] Start: 04-04-2024 End: 04-04-2024 ambulatory No Primary Care Physician Facility:[facility] Start: 03-31-2024 End: 03-31-2024 ambulatory No Primary Care Physician Facility:[facility] Start: 03-27-2024 End: 03-27-2024 ambulatory No Primary Care Physician Facility:[facility] Start: 03-27-2024 End: 03-27-2024 ambulatory Efewongbe Yadie GIGI Facility:[facility] Start: 03-14-2024 End: 03-14-2024 ambulatory No Primary Care Physician Facility:[facility] Start: 03-13-2024 End: 03-13-2024 ambulatory Efewongbe Dheerajghe GIGI Facility:[facility] Start: 03-06-2024 End: 03-06-2024 ambulatory Efewongbe Oleghe OLS Facility:[facility] Start: 2024 End: 2024 ambulatory Efewongbe Oleghe OLS Facility:[facility] Start: 02-29-2024 End: 02-29-2024 ambulatory Efewongbe Oleghe OLS Facility:[facility] Start: 02-28-2024 End: 02-28-2024 ambulatory Efewongbe Dheerajghe OLS Facility:[facility] Start: 02-24-2024 End: 02-24-2024 ambulatory No Primary Care Physician [facility] Start: 02-18-2024 End: 02-18-2024 ambulatory No Primary Care Physician Facility:[facility] Start: 02-02-2024 End: 02-02-2024 ambulatory No Primary Care Physician [facility] Start: 02-01-2024 End: 02-02-2024 ambulatory Efewongbe Yadie OLS Facility:[facility] Start: 02-01-2024 End: 02-01-2024 ambulatory No Primary Care Physician Facility:[facility] Start: 01-25-2024 ambulatory Efewongbe Dheerajghe OLS Fa cility:[facility] Start: 01-24-2024 End: 01-24-2024 ambulatory No Primary Care Physician [facility] Start: 01-19-2024 End: 01-19-2024 ambulatory No Primary Care Physician Facility:[facility] Start: 01-18-2024 ambulatory No Primary Car e Physician Facility:[facility] Start: 01-11-2024 ambulatory No Primary Car e Physician Facility:[facility] Start: 01-04-2024 ambulatory No Primary Car e Physician Facility:[facility] Start: 01-03-2024 End: 01-03-2024 ambulatory No Primary Care Physician [facility] Start: 12-28-2023 End: 12-28-2023 ambulatory No Primary Care Physician Facility:[facility] Start: 12-24-2023 ambulatory Efewongbe Oleghe OLS Fa cility:[facility] Start: 12-21-2023 End: 12-21-2023 ambulatory No Primary Care Physician Facility:[facility] Start: 12-17-2023 ambulatory Alaina Montgomery [facility] Start: 12-17-2023 End: 12-20-2023 Evaluation and management of inpatient No Primary Care Physician Facility:[facility] Payers Date Payer Category Payer Unknown [id number] 2023 Medicare [id number] 2023 Self-pay 2023 Unknown [id number] Unknown [id number] 2.16.8 40.1.996652.3.579.2.462 Unknown [id number] 2.16.8 40.1.702647.3.579.2.462 Unknown [id number] 2.16.8 40.1.908143.3.579.2.462 Unknown [id number] 2.16.8 40.1.733181.3.579.2.462 Unknown [id number] 2.16.8 40.1.431905.3.579.2.462 Unknown [id number] 2.16.8 40.1.248713.3.579.2.462 Unknown [id number] 2.16.8 40.1.351475.3.579.2.462 Unknown [id number] 2.16.8 40.1.768860.3.579.2.462 Unknown [id number] 2.16.8 40.1.316828.3.579.2.462 Unknown [id number] 2.16.8 40.1.742591.3.579.2.462 Unknown [id number] 2.16.8 40.1.374040.3.579.2.462 Unknown [id number] 2.16.8 40.1.346265.3.579.2.462 Unknown [id number] 2.16.8 40.1.845401.3.579.2.462 Unknown [id number] 2.16.8 40.1.758063.3.579.2.462 Unknown [id number] 2.16.8 40.1.838698.3.579.2.462 Unknown [id number] 2.16.8 40.1.581500.3.579.2.462 Unknown [id number] 2.16.8 40.1.681050.3.579.2.462 Unknown [id number] 2.16.8 40.1.295636.3.579.2.462 Unknown [id number] 2.16.8 40.1.306466.3.579.2.462 Unknown [id number] 2.16.8 40.1.406208.3.579.2.462 Unknown [id number] 2.16.8 40.1.408269.3.579.2.462 Unknown [id number] 2.16.8 40.1.414699.3.579.2.462 Unknown [id number] 2.16.8 40.1.482070.3.579.2.462 Unknown [id number] 2.16.8 40.1.045769.3.579.2.462 Unknown [id number] 2.16.8 40.1.724889.3.579.2.462 Unknown [id number] 2.16.8 40.1.427405.3.579.2.462 Unknown [id number] 2.16.8 40.1.595533.3.579.2.462 Unknown [id number] 2.16.8 40.1.827584.3.579.2.462 Unknown [id number] 2.16.8 40.1.510809.3.579.2.462 Unknown [id number] 2.16.8 40.1.990663.3.579.2.462 Unknown [id number] 2.16.8 40.1.171069.3.579.2.462 Unknown [id number] 2.16.8 40.1.839941.3.579.2.462 Unknown [id number] 2.16.8 40.1.352784.3.579.2.462 Unknown [id number] 2.16.8 40.1.539847.3.579.2.462 Unknown [id number] 2.16.8 40.1.160945.3.579.2.462 Unknown [id number] 2.16.8 40.1.567608.3.579.2.462 Unknown [id number] 2.16.8 40.1.208186.3.579.2.462 Unknown [id number] 2.16.8 40.1.677160.3.579.2.462 Unknown [id number] 2.16.8 40.1.471622.3.579.2.462 Unknown [id number] 2.16.8 40.1.724492.3.579.2.462 Unknown [id number] 2.16.8 40.1.278212.3.579.2.462 Unknown [id number] 2.16.8 40.1.753716.3.579.2.462 Unknown [id number] 2.16.8 40.1.640881.3.579.2.462 Unknown [id number] 2.16.8 40.1.809950.3.579.2.462 Unknown [id number] 2.16.8 40.1.498028.3.579.2.462 Unknown [id number] 2.16.8 40.1.113634.3.579.2.462 Discharge summary note 12-20-2023 Note Date & Type Note Facility 12-20-2023 Note [facility] Medical Records Department [address] [place] [id number] Discharge Summary 12/20/23 1159 MR#: [id number] Acct: [id number] Name: MIRI GUZMAN V Rep #: [id number] : 1935 88 From: Demian English DO PCP: Care Physician,No Primary Status:ADM IN [id number] Prov[facility] Date of Admission: 12/17/23 Date of Discharge: 12/20/23 Primary Care Physician: No Primary Care Phys Consultations 12/17/23 19:44 Consult: Podiatry Routine Consulting Provider: Rosendo Arreola Reason for Consult: nail care EMERGENT Consult: No MD Notified: Yes Date Notified: 12/17/23 Time Notified: 18:37 Method of Notification: Text 12/17/23 22:02 Consult: Onc/Wound/hand stamper Routine Comment: Reason for Consult:: left abdomen wound Reason For Visit: R GROIN WOUND Diagnosis Discharge Diagnosis (1) Nail dystrophy: Status: Acute Code(s): L60.3 - Nail dystrophy (2) Ingrowing nail: Status: Acute Code(s): L60.0 - Ingrowing nail Plan 1. Hypokalemia-corrected #2 mild dehydration-creatinine is improved today, continue IV fluids #3 left groin/lower abdominal ecchymosis-etiology unclear, patient will be seen by wound nurse, I have elected to keep the patient on Ancef at this time #4 generalized debility/popk-rqxhcsc-npqzszh has been seen by PT and OT, it is likely she will need to go to an extended care facility for inpatient rehab services. #5 bacteriuria-this is not significant, I do not believe the patient has cystitis at the present time #6 moderate cognitive impairment-etiology unclear Total clinical time spent by myself addressing the patient's medical issues, reviewing all of her data, and collaborating with patient's care team: 35 minutes Medications at Discharge Home Medications acetaminophen 325 mg tablet 650 mg (2 x 325 mg) PO Q6H PRN PRN Pain 1-10 Or Fever>100.7 #0 tabs 12/20/23 enoxaparin 40 mg/0.4 mL subcutaneous syringe 40 mg (0.4 mL) subcut DAILY #4 mL 12/20/23 food supplemt, lactose-reduced 0.08 gram-1.5 kcal/mL oral liquid (Ensure Plus High Protein) 120 ml PO TIDCM #237 mL 12/20/23 risperidone 0.25 mg tablet 0.25 mg PO QHS #0 tabs 12/20/23 vit A 300 mcg-C 200 mg-E 27 mg-lutein 2 mg and minerals tablet (Healthy Eyes) 1 tab PO BID #1 TAB 12/20/23 Hospital Course Operations None Procedures None Summary of Care Provided Minutes Spent on Discharge: 31 Hospital Course: This 88-year-old white female was seen in the emergency room at [facility] due to a decline in her ADLs at home and difficulty getting around. Patient lives alone, her daughter became concerned and brought her to the emergency room for placement. Daughter stated that she attempted to place the patient in a retirement facility but could not do it because the patient did not have a PCP. Evaluation of the patient in the emergency room showed an elevated white blood cell count of 13.9, potassium was low at 3, creatinine was 1.1, urinalysis showed +2 bacteria but 0-5 white cells and 0-5 RBCs. Patient had an ecchymotic area over her left lower abdominal area extending into the proximal left thigh, there was some minor abrasions over this area. Patient was admitted to [facility], she was given potassium replacement and seen by the wound care nurse. Patient was initially placed on IV antibiotics for possible cellulitis-this examiner did not feel she had cellulitis. Urinary culture grew out mixed gram-positive organisms not indicating a urinary tract infection. Patient was seen by PT and OT, she was also seen by podiatry for toenail care. Patient was given IV fluids. On 12/20/2023, patient was seen and examined: On examination she appeared frail and elderly, she does not appear to be in any distress. Vital signs as documented. Skin warm and dry, there was an area of ecchymosis over her left lower abdominal area including her abdominal fold and this area extended into her proximal left thigh anteriorly.. Neck without JVD, thyroid appears normal, trachea is midline, neck is supple. Lungs clear, normal air movement was noted. Heart exam notable for regular rhythm, normal sounds and absence of murmurs, rubs or gallops. Abdomen without evidence of organomegaly, masses, or abdominal aortic enlargement, bowel sounds are present in all 4 quadrants, no abdominal tenderness was noted. Extremities nonedematous, no cyanosis was noted, no clubbing was noted. Neuro: Cranial nerves II through XII are grossly intact, no focal motor deficits were noted, sensation to light touch and pinprick is intact, motor exam 5/5 throughout. Psych: Patient is alert, she exhibits some confusion Patient appears in stable condition for transfer to an extended care facility on 12/20/2023. Weight / BMI Weight Weight: 59.2 kg Body Mass Index (BMI) 24.6 ABG / Lab / Microbiol (more content not included)... [facility] Consultation note 12-20-2023 Note Date & Type Note Facility 12-20-2023 Note [facility] Medical Records Department [address] [place] [address] Consultation 12/20/23 0739 MR#: [id number] Acct: [id number] Name: MIRI GUZMAN V Rep #: [id number] : 1935 88 From: Rosendo Arreola DPM PCP: Care Physician,No Primary Status:ADM IN [id number] Assessment Plan Assessment/Plan (1) Nail dystrophy: (2) Ingrowing nail: PLAN: Plan Evaluation performed. Reduced and debrided toenails 1-5 bilateral using a nail nipper removing bulk, this was done without incident. Podiatry will follow up as needed. Thank you for consultation. HPI Consult Data Date of Consult: 12/20/23 HPI Narrative Reason for Consultation: Toenails HPI Narrative: MIRI GUZMAN, is a 88 F was seen in consultation for long, thickened painful toenails. She is resting in bed, no other complaints. PFSH Medical History Non-smoker Medical History no medical history Home Medications ???Medication ???Instructions ???Recorded ???Last Taken ???Type NK 12/17/23 Unknown History Allergy/AdvReac Type Severity Reaction Status Date / Time aspirin (ASA) Allergy Intermediate Bleeding Verified 12/17/23 19:23 Penicillins Allergy Itching Verified 12/17/23 15:51 Family History unable to obtain Surgical History History of appendectomy Surgical History unable to obtain Social History (Updated 12/17/23 @ 18:[address] Alaina Montgomery, DO) household members: none housing: house Smoking Status: Never smoker alcohol intake: never substance use type: does not use Physical Exam Const alert and no apparent distress Constitutional Narrative: Toenails 1-5 bilateral are elongated, thickened, dystrophic, incurvated as well, no open lesions bilateral, no cellulitis to foot or ankle bilateral, no ecchymosis, no maceration bilateral foot or ankle, CFT < 2 seconds to all toes with no evidence of ischemia to the foot or ankle bilateral. Sensation intact to light touch bilateral. No m/s POP or pain on ROM to the foot or ankle. Lab / Micro Data 12/18/23 06:36 12/19/23 04:47 Micro: Microbiology 12/17/23 18:30 Wound - Abdominal Gram Stain - Final 12/17/23 18:30 Wound - Abdominal Wound Culture - Preliminary Gram positive organism 12/17/23 17:27 Urine, Midstream Urine Culture - Preliminary Culture exhibits no growth. 12/20/23 0741 Cosigner Signature (if applicable): CC: No Primary Care Physician Signed [facility] Summary Purpose Family History No Family History Records Found Advance Directives No Advanced Directives Records Found Additional Source Comments INFORMATION SOURCE (unrecogn ized section and content) DATE CREATED AUTHOR 10/26/2024 [facility] FOR RECORDS PERTAINING TO PATIENTS WHO ARE OR HAVE BEEN ENROLLED IN A CHEMICAL DEPENDENCY/SUBSTANCEABUSE PROGRAM, SOME INFORMATION MAY BE OMITTED. This clinical summary was aggregated from multiple sources. Caution should be exercised in using it in the provision of clinical care. This summary normalizes information from multiple sources, and as a consequence, information in this document may materially change the coding, format and clinical context of patient data. In addition, data may be omitted in some cases. CLINICAL DECISIONS SHOULD BE BASED ON THE PRIMARY CLINICAL RECORDS. [email or web address] provides no warranty or guarantee of the accuracy or completeness of information in this document.
== END | disposition home or self-care (01) ==
LOC: LABSPEC 14:19
PROVIDERS: Referring Provider Internal Medicine; Visit Provider Internal Medicine
DX: A04.72 Enterocolitis due to Clostridium difficile, not specified as recurrent (principal)

== ENCOUNTER → 2025-01-02 | Outpatient (REF) | payer MEDICARE, OTHER, SELFPAY ==
--- OUTSIDE RECORDS SUMMARY | 2025-01-02 03:36 | XMS RPT_ITS | CCD ---
Author Organization [facility] Care Team Providers Care Magnetometer Operator Name Role Phone Care Physician, No Primary Primary Care Provider Unavailable Yasmany BATES, Dr. Armas Attending Provider Selina Anderson Attending Provider [phone] Chanda Jade MD Attending Provider Unavaila Dr. Chanda Johnson MD Referring Provider [phone] Care Physician, No Primary Primary Care Provider Unavailable Dr. Chanda Jade MD Attending Provider Yves Rollins Attending Provider Oleghe OLS, Efewongbe Attending Unavailabl e Care Physician, No Primary Primary Care Unava ilable Oleghe OLS, Efewongbe Attending Unavailabl e Care Physician, No Primary Primary Care Unava ilable Oleghe OLS, Efewongbe Attending Unavailabl e Care Physician, No Primary Primary Care Unava ilable Oleghe OLS, Efewongbe Attending Unavailabl e Care Physician, No Primary Primary Care Unava ilable Oleghe, Efewongbe Referring Unavailable Olechacha Efewongbe Attending Unavailable Care Physician, No Primary [...] No Primary Primary Care Unava ilable Oleghe GIGI, Efewongbe Attending Unavailabl e Care Physician, No Primary Primary Care Unava ilable Oleghe GIGI, Efewongbe Attending Unavailabl e Care Physician, No Primary Primary Care Unava ilable Oleghe GIGI, Efewongbe Attending Unavailabl e Care Physician, No Primary Primary Care Unava ilable Oleghe GIGI, Efewongbe Attending Unavailabl e Care Physician, No Primary Primary Care Unava ilable Oleghe GIGI Efewongbe Attending Unavailabl e Care Physician, No Primary Primary Care Unava ilable Care Physician, No Primary Primary Care Unava ilable Selina Shah NP Attending Unavailable OleRegulo Willisbe Attending Unavailabl e Care Physician, No Primary Primary Care Unava ilable Care Physician, No Primary Primary Care Unava ilable Selina Shah NP Attending Unavailable Regulo Jadebe Attending Unavailable Care Physician, No Primary Primary Care Unava ilable Care Physician, No Primary Primary Care Unava ilable Chanda Jade Attending Unavailable Care Physician, No Primary Primary Care Unava ilable Selina Shah NP Attending Unavailable OleIra burnhamongbe Attending Unavailable Care Physician, No Primary Primary Care Unava ilable Selina Shah NP Attending Unavailable Care Physician, No Primary Primary Care Unava ilable Sumeet Barlow Attending Unavailable Care Physician, No Primary Primary Care Unava ilable Yves Rollins Attending Unavailable Care Physician, No Primary Primary Care Unava ilable Oleghe, Efjamesbe Attending Unavailable Care Physician, No Primary Primary Care Unava ilable [place]omen[place] RESPIRATORY CARE SPECIALIST, Selina Attending Unavailable Care Physician, No Primary Primary Care Unava ilable Marlon ROSARIO, Yves Attending Unavailable Care Physician, No Primary Primary Care Unava ilable [place] RESPIRATORY CARE SPECIALIST, Selina Attending Unavailable Care Physician, No Primary Primary Care Unava ilable Care Physician, No Primary Primary Care Unava ilable Philomen[place] RESPIRATORY CARE SPECIALIST, Selina Attending Unavailable Xiang Basurto Attending Unavailable Care Physician, No Primary Referring Unava ilable Care Physician, No Primary Primary Care Unava ilable [place] RESPIRATORY CARE SPECIALIST, Selina Attending Unavailable Care Physician, No Primary Primary Care Unava ilable [place] RESPIRATORY CARE SPECIALIST, Selina Attending Unavailable Care Physician, No Primary Primary Care Unava ilable Care Physician, No Primary Primary Care Unava ilable Oleghe, Efewongbe Attending Unavailable [place] RESPIRATORY CARE SPECIALIST, Selina Attending Unavailable Care Physician, No Primary Primary Care Unava ilable Care Physician, No Primary Primary Care Unava ilable Oleghe, Efewongbe Attending Unavailable [place] RESPIRATORY CARE SPECIALIST, Selina Attending Unavailable Care Physician, No Primary [...] Physician, No Primary Primary Care Unava ilable Allergies Allergy Classification Reported Allergen(s) Allergy Type Date of Onset Reaction(s) Facility (3 sources) Aspirin Drug Allergy 12-17-2023 Bleeding [facility] Comment on above: internal bleeding. (3 sources) Penicillins Allergy to substance 12-17-2023 Itching [facility] (1 source) Aspirin Drug Allergy 12-17-2023 [facility] Repository (1 source) Penicillins Drug allergy (disorder) 12-17-2023 [facility] Repository Medications Current Medications Medication Drug Class(es) Dates Sig (Normalized) Sig (Original) acetaminophen 325 mg oral tablet (3 sources) Start: 12-20-2023 take 1-10 tablets by mouth every six hours as needed for pain Acetaminophen 325 mg Tablet Active 650 mg PO EVERY 6 HOURS NEEDED as needed for Pain 1-10 Or Fever>100.7 0 0 December 20, 2023 12:00am citalopram 10 mg oral tablet (3 sources) Serotonin Reuptake Inhibitor Start: 02-18-2024 take 1 tablet by mouth once daily Citalopram (Celexa) 10 mg tablet Active 10 mg PO daily February 18, 2024 12:00am donepezil hydrochloride 10 mg oral tablet (3 sources) Start: 02-18-2024 take 1 tablet by mouth at bedtime Donepezil 10 mg tablet Active 10 mg PO AT BEDTIME February 18, 2024 12:00am Food Supplemt, Lactose-Reduced (Ensure Plus High Protein) 0.08 gram-1.5 kcal/mL Liquid (3 sources) Start: 12-20-2023 Food Supplemt, Lactose-Reduced (Ensure Plus High Protein) 0.08 gram-1.5 kcal/mL Liquid Active 120 mL PO 3 TIMES DAILY WITH MEALS 237 December 20, 2023 12:00am risperiDONE 0.25 mg oral tablet (3 sources) Atypical Antipsychotic Start: 12-20-2023 take 1 tablet by mouth at bedtime Risperidone 0.25 mg Tablet Active 0.25 mg PO AT BEDTIME 0 0 December 20, 2023 12:00am vancomycin 25 mg/ml oral solution (3 sources) Glycopeptide Antibacterial Start: 02-18-2024 Vancomycin 25 mg/mL recon soln Active mg PO February 18, 2024 12:00am Vit A,C And I-Orxpmi-Vfmvrsqb (Healthy Eyes) 300 mcg-200 mg-27 mg-2 mg Tablet (3 sources) Start: 12-20-2023 Vit A,C And H-Akzuyc-Aalgoeob (Healthy Eyes) 300 mcg-200 mg-27 mg-2 mg Tablet Active 1 {tbl} PO TWICE A DAY 1 December 20, 2023 12:00am Completed/Discontinued Medications Medication Drug Class(es) Dates Sig (Normalized) Sig (Original) 0.4 ml enoxaparin sodium 100 mg/ml prefilled syringe (3 sources) Low Molecular Weight Heparin Start: 12-20-2023 End: 02-18-2024 Enoxaparin 40 mg/0.4 mL Syringe Discontinued 40 mg SC DAILY 4 0 December 20, 2023 11:54am February 18, 2024 8:14am Eye Injection (3 sources) Start: 03-29-2015 End: 12-17-2023 Eye Injection Discontinued 1 APPLICATIO EACHEYE DIRECTED March 29, 2015 12:00am December 17, 2023 6:41pm Vitamins A,C,M-Lqct-Fkpnmi (Preservision Areds) 1 EACH capsule (3 sources) Start: 03-29-2015 End: 12-17-2023 take 1 capsule by mouth twice daily Vitamins A,C,J-Yxsn-Uwmzhe (Preservision Areds) 1 EACH capsule Discontinued 1 NMA PO TWICE A DAY March 29, 2015 12:00am December 17, 2023 6:41pm Problems Active Problems Problem Classification Problem Date Documented Da te Episodic/Chronic Deficiency and other anemia (3 sources) Anemia due to blood loss; Translations: [Iron deficiency anemia secondary to blood loss (chronic)] 01-14-2016 Chronic Delirium, dementia, and amnestic and other cognitive disorders (4 sources) Alzheimer's disease, unspecified; Translations: [Unspecified dementia without behavioral disturbance] Onset: 4 Chronic Diabetes mellitus without complication (3 sources) Hyperglycemia; Translations: [Hyperglycemia, unspecified] 01-14-2016 Episodic Diseases of white blood cells (3 sources) Leukocytosis; Translations: [Elevated white blood cell count, unspecified] 12-17-2023 Chronic Diverticulosis and diverticulitis (3 sources) Diverticula of intestine; Translations: [Diverticulosis of intestine, part unspecified, without perforation or abscess without bleeding] 03-29-2015 Chronic Gastrointestinal hemorrhage (3 sources) Lower gastrointestinal hemorrhage; Translations: [Gastrointestinal hemorrhage, unspecified] 01-14-2016 Episodic Intestinal infection (3 sources) Enterocolitis due to Clostridium difficile, not specified as recurrent; Translations: [Enterocolitis due to Clostridium difficile, recurrent] Onset: 4 Episodic Malaise and fatigue (3 sources) Asthenia; Translations: [Other malaise] 12-17-2023 Episodic Mood disorders (1 source) Major depressive disorder, single episode, moderate; Translations: [Major depressive disorder, single episode, moderate] Onset: 5 Chronic Mycoses (3 sources) Disorder of inguinal region; Translations: [Other sites of candidiasis] 12-17-2023 Episodic Nutritional deficiencies (2 sources) Mild protein-calorie malnutrition; Translations: [Mild protein-calorie malnutrition] Onset: 5 Chronic Osteoarthritis (3 sources) Primary gonarthrosis, bilateral; Translations: [Bilateral primary osteoarthritis of knee] 02-18-2024 Chronic Other screening for suspected conditions (not mental disorders or infectious disease) (3 sources) Serum creatinine raised; Translations: [Other specified abnormal findings of blood chemistry] 12-28-2023 Episodic Other skin disorders (3 sources) Dystrophia unguium; Translations: [Nail dystrophy] 12-28-2023 Episodic Other skin disorders (3 sources) Ingrowing nail; Translations: [Ingrowing nail] 12-28-2023 Episodic Spondylosis; intervertebral disc disorders; other back problems (3 sources) Cervical spondylosis; Translations: [Other spondylosis with radiculopathy, cervical region] 01-14-2016 Chronic Unclassified (2 sources) Dementia in other diseases classified elsewhere, unspecified severity, with agitation; Translations: [Dementia in other diseases classified elsewhere, unspecified severity, with agitation] Onset: 5 Past or Other Problems Problem Classification Problem Date Documented Da te Episodic/Chronic Fluid and electrolyte disorders (14 sources) Hyponatremia; Translations: [Hypo-osmolality and hyponatremia] Onset: 06-02-2024 12-17-2023 Episodic Genitourinary symptoms and ill-defined conditions (4 sources) Asymptomatic bacteriuria; Translations: [Bacteriuria] Onset: 05-05-2024 12-17-2023 Episodic Other aftercare (2 sources) moth exterminator (current) use of anticoagulants; Translations: [moth exterminator (current) use of anticoagulants] Onset: 05-05-2024 Episodic Other nervous system disorders (1 source) Other symbolic dysfunctions; Translations: [Other symbolic dysfunctions] Onset: 05-25-2024 Episodic Other non-traumatic joint disorders (4 sources) Pain in right knee; Translations: [Pain in both knees] Onset: 02-18-2024 02-18-2024 Episodic Other non-traumatic joint disorders (1 source) Pain in left knee; Translations: [Pain in left knee] Onset: 02-18-2024 Episodic Residual codes; unclassified (2 sources) Pain, unspecified; Translations: [Pain, unspecified] Onset: 06-02-2024 Episodic Residual codes; unclassified (2 sources) Edema, unspecified; Translations: [Edema, unspecified] Onset: 06-02-2024 Episodic Skin and subcutaneous tissue infections (1 source) Cellulitis of groin; Translations: [Cellulitis of groin] Onset: 05-25-2024 Episodic Results Test Name Value Interpretation Reference Range Facility Clostridium difficile detect ion by polymerase chain reactionOrdered By: Chanda Jade on 11-22-2024 C. difficile DNA NIKO+probe Ql (Unsp spec) [facility] Stool Clostridium difficile detectionOrdered By: Chanda Jade on 11-22-2024 C. difficile Ql (Stl) [facility] Knee 4 or More Viewson 02-17 Knee 4 or More Views [facility] [address] [place] [address] Knee 4 or More Views MR#: [id number] Acct: [id number] Name: MIRI GUZMAN V Rep #: [id number] : 1935 F 88 From: Ernie juarez MD PCP: Care Physician,No Primary Status: DEP AMB Study: Knee 4 or More Views Date of Exam: 02/18/24 Exam# [id number] Ordering Dr: Xiang Basurto MD [id number] INDICATION: pain EXAMINATION/TECHNIQUE : X-RAY - RIGHT XR Knee Complete 4 [...] Xiang Basurto MD; No Primary Care Physician Plant Operator: Signed Normal [facility] Knee 4 or More Views [facility] [address] [place] [address] Knee 4 or More Views MR#: [id number] Acct: [id number] Name: MIRI GUZMAN Wendy Rep #: [id number] : 1935 F 88 From: Ernie juarez MD PCP: Care Physician,No Primary Status: DEP AMB Study: Knee 4 or More Views Date of Exam: 02/18/24 Exam# [id number] Ordering Dr: Xiang Basurto MD [id number] INDICATION: pain EXAMINATION/TECHNIQUE : X-RAY - LEFT XR Knee Complete 4 [...] Xiang Basurto MD; No Primary Care Physician Plant Operator: Signed Normal [facility] Orthopedic Visit Reporton Orthopedic Visit Report [facility] [place] [address] OFFICE VISIT Date of Service: 02/18/24 MR#: [id number] Acct: [id number] Name: YECENIA GUZMANGILMER Wendy Rep #: [id number] : 1935 Provider: Dr. Xiang mar MD Age/Sex: 88/F [place] [facility] [place] Status: Signed with Addenda ADDENDUM by GRAY [...] Performing Provider: Xiang Basurto MD Performing Location: [facility] Administered by: Xiang Basurto MD on 02/18/24 09:01 Dose Route Admin Location Dispensed Lot Number Expiration Date NDC Man ufacturer 160 mg intra-articular Bilateral knee 4 mL [id number] 08/29/25 2489-9146-71 [facility] Date cc: * Signed Intake Vital [...] mostly in a wheelchair. 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 No recent treatment no past history of [...] knees. Coding Level of Care Code Attention Procedures Analyst Diagnoses Bilateral knee pain M25.561; M25.562 Bilateral primary osteoarthritis of knee M17.0 Comment 28469 and CPT inject major joint x2 Assessment and Plan Assessment and Plan (1) Bilateral knee pain: Status: Acute Plan: MIRI GUZMAN is a 88 year old F here today for bilat knee pain. Patient has advanced degenerative changes both jeny (more content not included)... Normal [facility] COVID 19 AG RAPID (DARLINE Lewis)on 12-20-2023 SARS-CoV-2 (COVID-19) RNA NIKO+probe Ql (Unsp spec) SARS-CoV-2 (COVID 19) Negative RAPID METHOD Quidel Brigitte Analyzer GAETANO Normal [facility] Comment on above: Performed By: #### M 100.505 #### [facility] [address] [facility] [place] [address] Basic Metabolic Profile (BMP )on 12-19-2023 BUN/CRE 17.2 RATIO Normal 10-20 [facility] Comment on above: Performed By: #### L 500.2500 #### [facility] [address] [facility] [place], [address] CA,Total 8.3 mg/dL Low 8.5-10.1 [facility] Comment on above: Performed By: #### L 500.2500 #### [facility] [address] [facility]. [facility] [address] Chloride [Moles/Vol] 106 mmol/L Normal 98-107 [facility] Comment on above: Performed By: #### L 500.2500 #### [facility] [address] [facility] [place], [address] CO2 [Moles/Vol] 22.0 mmol/L Normal 21.0-32.0 [facility] Comment on above: Performed By: #### L 500.2500 #### [facility] [address] [place], [address] Creatinine [Mass/Vol] 0.70 mg/dL Normal 0.55-1.02 [facility] Comment on above: Result Comment: The validity of the calculated GFR GFRAA in patients over 70 years has not been determined. Clinical correlation is essential. Performed By: #### L 500.2500 #### [facility] [address] [place], [address] ECRCL 41.22 ml/min Normal [facility] Comment on above: Performed By: #### L 500.2500 #### [facility] [address] [place], [address] EST GFR - AA 102 mL/min Normal >60 [facility] Comment on above: Result Comment: Afri can Latvian GFR Calc Performed By: #### L 500.2500 #### [facility] [address] [place], [address] GAP 7 Normal 5-15 [facility] Comment on above: Performed By: #### L 500.2500 #### [facility] [address] [place], [address] GFR/1.73 sq M.predicted among non-blacks MDRD (S/P/Bld) [Vol rate/Area] 85 mL/min/{1.73_m2} Normal >60 [facility] Comment on above: Result Comment: Non- GFR Calc Performed By: #### L 500.2500 #### [facility] [address] [place], [address] Glucose [Mass/Vol] 79 mg/dL Normal 74-106 [facility] Comment on above: Performed By: #### L 500.2500 #### [facility] [address] [place], [address] Potassium [Moles/Vol] 3.6 mmol/L Normal 3.5-5.1 [facility] Comment on above: Result Comment: Slig ht Hemolysis, Result may be falsely increased. Performed By: #### L 500.2500 #### [facility] [address] [place], [place], [address] Sodium [Moles/Vol] 135 mmol/L Low 136-145 [facility] Comment on above: Performed By: #### L 500.2500 #### [facility] [address] [place], [place], [address] Urea nitrogen [Mass/Vol] 12 mg/dL Normal 7-18 [facility] Comment on above: Performed By: #### L 500.2500 #### [facility] [address] [place], [place], [address] Encounters Encounter Date Encounter Type Care Provider Facility Start: 11-22-2024 End: 11-22-2024 ambulatory No Primary Care Physician -Laboratory Specimen Start: 11-22-2024 End: 11-22-[address] Chanda Jade MD -Laboratory Specimen Work Phone: Start: 11-22-2024 ambulatory Chanda Jade OLS Fa cility:[facility] Start: 11-22-2024 Registered Referred Chanda Jade MD [facility] Start: 11-22-2024 End: 11-22-2024 ambulatory Chanda Jade Facility:[facility] Start: 11-09-2024 End: 11-09-2024 ambulatory No Primary Care Physician -[facility] Start: 11-09-2024 End: 11-09-2024 Patient encounter procedure Yves ROSARIO -[facility] Work Phone: Start: 10-10-2024 End: 10-10-2024 ambulatory No Primary Care Physician [facility] Start: 10-10-2024 End: 10-10-[address] Chanda Jade MD -[facility] Work Phone: Start: 08-29-2024 End: 08-29-2024 ambulatory No Primary Care Physician Facility:[facility] Start: 08-29-2024 End: 08-29-2024 Patient encounter procedure Selina Shah RESPIRATORY CARE SPECIALIST-C -[facility] Work Phone: Start: 08-01-2024 End: 08-01-2024 ambulatory Efewongbe Oleghe Facility:[facility] Start: 08-01-2024 End: 08-01-[address] Chanda Jade MD -[facility] Work Phone: Start: 07-20-2024 ambulatory Efewongbe Oleghe OLS Fa cility:[facility] Start: 07-13-2024 End: 07-13-2024 ambulatory Yves ROSARIO [place] [place]: 07-04-2024 ambulatory Efewongbe Oleghe OLS Fa cility:[facility] Start: 06-27-2024 End: 06-27-2024 ambulatory Selina Shah RESPIRATORY CARE SPECIALIST [place] Start: 06-19-2024 ambulatory Efewongbe Oleghe OLS Fa cility:[facility] Start: 06-15-2024 ambulatory Efewongbe Oleghe OLS Fa cility:[facility] Start: 06-12-2024 End: 06-12-2024 ambulatory Selina Shah RESPIRATORY CARE SPECIALIST Facility:[facility] Start: 06-06-2024 End: 06-06-2024 ambulatory No Primary Care Physician Facility:[facility] Start: 06-05-2024 ambulatory Efewongbe Oleghe OLS Fa cility:[facility] Start: 05-16-2024 End: 05-16-2024 ambulatory Efewongbe Oleghe OLS Facility:[facility] Start: 05-02-2024 End: 05-02-2024 ambulatory Efewongbe Oleghe OLS Facility:[facility] Start: 05-01-2024 End: 05-01-2024 ambulatory Efewongbe Oleghe OLS Facility:[facility] Start: 04-18-2024 End: 04-18-2024 ambulatory Efewongbe Oleghe OLS Facility:[facility] Start: 04-11-2024 End: 04-11-2024 ambulatory Efewongbe Oleghe OLS Facility:[facility] Start: 04-04-2024 End: 04-04-2024 ambulatory No Primary Care Physician Facility:[facility] Start: 04-04-2024 End: 04-04-2024 ambulatory Efewongbe Oleghe OLS Facility:[facility] Start: 03-31-2024 End: 03-31-2024 ambulatory Efewongbe Oleghe OLS Facility:[facility] Start: 03-27-2024 End: 03-27-2024 ambulatory No Primary Care Physician Facility:[facility] Start: 03-27-2024 End: 03-27-2024 ambulatory Efewongbe Oleghe OLS Facility:[facility] Start: 03-14-2024 End: 03-14-2024 ambulatory Selina Shah RESPIRATORY CARE SPECIALIST Facility:[facility] Start: 03-13-2024 End: 03-13-2024 ambulatory Efewongbe Oleghe OLS Facility:[facility] Start: 03-06-2024 End: 03-06-2024 ambulatory Efewongbe Oleghe OLS Facility:[facility] Start: 2024 End: 2024 ambulatory Efewongbe Oleghe OLS Facility:[facility] Start: 02-29-2024 End: 02-29-2024 ambulatory Efewongbe Oleghe OLS Facility:[facility] Start: 02-28-2024 End: 02-28-2024 ambulatory Efewongbe Oleghe OLS Facility:[facility] Start: 02-24-2024 End: 02-24-2024 ambulatory No Primary Care Physician Facility:[facility] Start: 02-18-2024 End: 02-18-2024 ambulatory Xiang Anglinison Facility:[facility] Start: 02-02-2024 End: 02-02-2024 ambulatory No Primary Care Physician Facility:[facility] Start: 02-01-2024 End: 02-02-2024 ambulatory Efewongbe Oleghe OLS Facility:[facility] Start: 02-01-2024 End: 02-01-2024 ambulatory Efewongbe Oleghe OLS Facility:[facility] Start: 01-25-2024 ambulatory Efewongbe Oleghe OLS Fa cility:[facility] Start: 01-24-2024 End: 01-24-2024 ambulatory Selina Shah RESPIRATORY CARE SPECIALIST Facility:[facility] Start: 01-19-2024 End: 01-19-2024 ambulatory Selina Shah RESPIRATORY CARE SPECIALIST Facility:[facility] Start: 01-18-2024 ambulatory Chanda Jade OLS Fa cility:[facility] Start: 01-11-2024 ambulatory Efronak Grullone OLS Fa cility:[facility] Start: 01-04-2024 ambulatory Chanda Grullone OLS Fa cility:[facility] Start: 01-03-2024 End: 01-03-2024 ambulatory Selina Shah RESPIRATORY CARE SPECIALIST Facility:[facility] Start: 12-28-2023 End: 12-28-2023 ambulatory Chanda Jade Facility:[facility] Start: 12-24-2023 ambulatory Chanda Jade OLS Fa cility:[facility] Start: 12-21-2023 End: 12-21-2023 ambulatory Selina Shah RESPIRATORY CARE SPECIALIST Facility:[facility] Procedures Date Procedure Procedure Detail Performing Clinician Start: 11-22-2024 Clostridium difficil e detection No Primary Care Physician Payers Date Payer Category Payer Unknown [id number] 2023 Self-pay 2023 Medicare [id number] 2001 Unknown [id number] Unknown [id number] 2.16.8 [id number] Unknown [id number] 2..8 [id number] Unknown [id number] 2..8 [id number] Unknown [id number] 2.16.8 40.1.112399.3.579.2.462 Unknown [id number] 2.16.8 40.1.437696.3.579.2.462 Unknown [id number] 2.16.8 40.1.447637.3.579.2.462 Unknown [id number] 2.16.8 40.1.303135.3.579.2.462 Unknown [id number] 2.16.8 40.1.054252.3.579.2.462 Unknown [id number] 2.16.8 40.1.341625.3.579.2.462 Unknown [id number] 2.16.8 40.1.485910.3.579.2.462 Unknown [id number] 2.16.8 40.1.794483.3.579.2.462 Unknown [id number] 2.16.8 40.1.230443.3.579.2.462 Unknown [id number] 2.16.8 40.1.422850.3.579.2.462 Unknown [id number] 2.16.8 40.1.595548.3.579.2.462 Unknown [id number] 2.16.8 40.1.972413.3.579.2.462 Unknown [id number] 2.16.8 40.1.287365.3.579.2.462 Unknown [id number] 2.16.8 40.1.576386.3.579.2.462 Unknown [id number] 2.16.8 40.1.688059.3.579.2.462 Unknown [id number] 2.16.8 40.1.740288.3.579.2.462 Unknown [id number] 2.16.8 40.1.465638.3.579.2.462 Unknown [id number] 2.16.8 40.1.997484.3.579.2.462 Unknown [id number] 2.16.8 40.1.748576.3.579.2.462 Unknown [id number] 2.16.8 40.1.369422.3.579.2.462 Unknown [id number] 2.16.8 40.1.455197.3.579.2.462 Unknown [id number] 2.16.8 40.1.162374.3.579.2.462 Unknown [id number] 2.16.8 40.1.700127.3.579.2.462 Unknown [id number] 2.16.8 40.1.601828.3.579.2.462 Unknown [id number] 2.16.8 40.1.425406.3.579.2.462 Unknown [id number] 2.16.8 40.1.450350.3.579.2.462 Unknown [id number] 2.16.8 40.1.673635.3.579.2.462 Unknown [id number] 2.16.8 40.1.374647.3.579.2.462 Unknown [id number] 2.16.8 40.1.079617.3.579.2.462 Unknown [id number] 2.16.8 40.1.594239.3.579.2.462 Unknown [id number] 2.16.8 40.1.040534.3.579.2.462 Unknown [id number] 2.16.8 40.1.753149.3.579.2.462 Unknown [id number] 2.16.8 40.1.702751.3.579.2.462 Unknown [id number] 2.16.8 40.1.183186.3.579.2.462 Unknown [id number] 2.16.8 40.1.324674.3.579.2.462 Unknown [id number] 2.16.8 40.1.197134.3.579.2.462 Unknown [id number] 2.16.8 40.1.668936.3.579.2.462 Unknown [id number] 2.16.8 40.1.089844.3.579.2.462 Unknown [id number] 2.16.8 40.1.444189.3.579.2.462 Unknown [id number] 2.16.8 40.1.576963.3.579.2.462 Unknown [id number] 2.16.8 40.1.631876.3.579.2.462 Unknown [id number] 2.16.8 40.1.867960.3.579.2.462 Social History Date Type Detail Facility Start: 02-16-2024 Tobacco smoking stat us WAIS Never smoked tobacco (finding) [facility] Start: 03-29-2015 Alcohol Alcohol [facility] Start: 03-29-2015 Lives Lives [facility] Start: 03-29-2015 Tobacco Use Tobacco Use [facility] Start: 1935 Sex Assigned At Female [facility] Discharge summary note 12-20-2023 Note Date & Type Note Facility 12-20-2023 Note [facility] Medical Records Department [address] [place] [address] Discharge Summary 12/20/23 1159 MR#: [id number] Acct: [id number] Name: MIRI GUZMAN V Rep #: [id number] : 1935 88 From: Demian English DO PCP: Care Physician,No Primary Status:ADM IN Location: [place] [address] Providers Date of Admission: 12/17/23 Date of Discharge: 12/20/23 Primary Care Physician: No Primary Care Phys Consultations 12/17/23 19:44 Consult: Podiatry Routine Consulting Provider: Rosendo Arreola Reason for Consult: nail care EMERGENT Consult: No MD Notified: Yes Date Notified: 12/17/23 Time Notified: 18:37 Method of Notification: Text 12/17/23 22:02 Consult: Onc/Wound/blister pack operator Routine Comment: Reason for Consult:: left abdomen [...] on Ancef at this time #4 generalized debility/uuzs-praoxcd-bpysgvr has been seen by PT and OT, [...] was seen in the emergency room at [facility] due to a decline in her ADLs at home and difficulty getting around. Patient lives alone, her daughter became concerned and brought her to the emergency room for placement. Daughter stated that she attempted to place the patient in a [place] [facility] facility but could not do it because [...] over this area. Patient was admitted to [place] [address], she was given potassium replacement and seen [...] Lab / Microbiol (more content not included)... [facility] Consultation note 12-20-2023 Note Date & Type Note Facility 12-20-2023 Note [facility] Medical Records Department [address] [place] [address] Consultation 12/20/23 0739 MR#: [id number] Acct: [id number] Name: MEGANMIRI V Rep #: [id number] : 1935 88 From: Rosendo Arreola DPM PCP: Care Physician,No Primary Status:ADM [facility] Assessment Plan Assessment/Plan (1) Nail dystrophy: (2) Ingrowing nail: PLAN: Plan Evaluation performed. Reduced and debrided toenails 1-5 bilateral using a nail nipper removing bulk, this was done without incident. Podiatry will follow up as needed. Thank you for consultation. HPI Consult Data Date of Consult: 12/20/23 HPI Narrative Reason for Consultation: Toenails HPI Narrative: FREEMANKenney MEGAN, stas a 88 F was seen in consultation for long, thickened painful toenails. She is resting in bed, no other complaints. [facility] Medical History Non-smoker Medical History no medical [...] applicable): CC: No Primary Care Physician Signed [facility] Evaluation note Note Date & Type Note Facility Evaluation note No assessment information availa ble [facility] Work Phone: Reason for referral (narrative) Note Date & Type Note Facility Reason for referral (narrative) No reason for referral information available [facility] Work Phone: Chief Complaint and Reason for Visit Chief Complaint Admit Date MONTHLY EXAM August 01, 2024 3:02 pm MONTHLY EXAM August 29, 2024 5:01 pm A04.72 November 22, 2024 2:15 pm Chief Complaint Admit Date MONTHLY EXAM August 29, 2024 5:01 pm MONTHLY EXAM October 10, 2024 7:30p m A04.72 November 22, 2024 2:15 pm Chief Complaint Admit Date MONTHLY EXAM August 29, 2024 5:01 pm MONTHLY EXAM October 10, 2024 7:30p m MONTHLY EXAM November 09, 2024 10:1 5am A04.72 November 22, 2024 2:15 pm Family History No Family History Records Found Relationship Condition Age at Onset Recorded Date/T simba Unknown Family History?No pe rtinent history Unknown October 16, 2016 12:45pm Family History?No pe rtinent history Unknown February 16, 2024 8:19am Advance Directives No Advanced Directives Records Found Advance Directive Response Recorded Date/ Time Advance Directives Yes January 8:19am Summary Purpose Additional Source Comments Care Teams (unrecognized sec tion and content) Team Status: Active Member Role/Relationship Status Dates Dr. Casey Arnold MD Family Provider Active No Primary Care Physician Primary Care Provider Active Team Status: Inactive Member Role/Relationship Status Dates No Primary Care Physician Primary Care Provider Active Start: August 01, 2024 End: August 01, 2024 Dr. Chanda Jade MD Attending Provider Active Start: August 01, 2024 End: August 01, 2024 Team Status: Inactive Member Role/Relationship Status Dates No Primary Care Physician Primary Care Provider Active Start: August 29, 2024 End: August 29, 2024 Selina Shah NP, RESPIRATORY CARE SPECIALIST-C Attending Provider Active Start: August 29, 2024 End: August 29, 2024 Team Status: Active Member Role/Relationship Status Dates No Primary Care Physician Primary Care Provider Active Start: November 22, 2024 Chanda YU MD Attending Provider Active Start: November 22, 2024 Team Status: Inactive Member Role/Relationship Status Dates No Primary Care Physician Primary Care Provider Active Start: November 22, 2024 End: November 22, 2024 Dr. Chanda Jade MD Attending Provider Active Start: November 22, 2024 End: November 22, 2024 Dr. Chanda Jade MD Referring Provider Active Start: November 22, 2024 End: November 22, 2024 Team Status: Inactive Member Role/Relationship Status Dates No Primary Care Physician Primary Care Provider Active Start: August 29, 2024 End: August 29, 2024 Selina Shah RESPIRATORY CARE SPECIALIST, RESPIRATORY CARE SPECIALIST-C Attending Provider Active Start: August 29, 2024 End: August 29, 2024 Team Status: Inactive Member Role/Relationship Status Dates No Primary Care Physician Primary Care Provider Active Start: October 10, 2024 End: October 10, 2024 Dr. Chanda Jade MD Attending Provider Active Start: October 10, 2024 End: October 10, 2024 Team Status: Inactive Member Role/Relationship Status Dates No Primary Care Physician Primary Care Provider Active Start: November 09, 2024 End: November 09, 2024 ABRAHAM Mcgee Attending Provider Active St art: November 09, 2024 End: November 09, 2024 Team Status: Active Member Role/Relationship Status Dates No Primary Care Physician Primary Care Provider Active Start: November 22, 2024 Chanda YU MD Attending Provider Active Start: November 22, 2024 Team Status: Inactive Member Role/Relationship Status Dates No Primary Care Physician Primary Care Provider Active Start: November 22, 2024 End: November 22, 2024 Dr. Chanda Jade MD Attending Provider Active Start: November 22, 2024 End: November 22, 2024 Dr. Chanda Jade MD Referring Provider Active Start: November 22, 2024 End: November 22, 2024 Goals (unrecognized section and content) Goals may be documented in a n alternate sectionGoals may be documented in an alternate sectionGoals may be documented in an alternate section INFORMATION SOURCE (unrecogn ized section and content) DATE CREATED AUTHOR 12/17/2024 [facility] FOR RECORDS PERTAINING TO PATIENTS WHO [...] BE BASED ON THE PRIMARY CLINICAL RECORDS. [employer] provides no warranty or guarantee of the accuracy or completeness of information in this document.
--- OUTSIDE RECORDS SUMMARY | 2025-01-02 03:36 | XMS RPT_ITS | CCD ---
Author Organization [facility] Care Team Providers Care Drug Inspector Name Role Phone Care Physician, No Primary Primary Care Provider Unavailable Yasmany BATES, Dr. Armas Attending Provider Selina Anderson Attending Provider Chanda Jade MD Attending Provider Unavaila Dr. Chanda Johnson MD Referring Provider [phone] Care Physician, No Primary Primary Care Provider [...] No Primary Primary Care Unava ilable Philomenaton ORACLE FUSION DEVELOPER, Selina Attending Unavailable Care Physician, No Primary Primary Care Unava ilable Marlon ROSARIO, Yves Attending Unavailable Care Physician, No Primary Primary Care Unava ilable Tickton ORACLE FUSION DEVELOPER, Selina Attending Unavailable Care Physician, No Primary Primary Care Unava ilable Care Physician, No Primary Primary Care Unava ilable Philomenaton ORACLE FUSION DEVELOPER, Selina Attending Unavailable Xiang Basurto Attending Unavailable Care Physician, No Primary Referring Unava ilable Care Physician, No Primary Primary Care Unava ilable [place]ton ORACLE FUSION DEVELOPER, Selina Attending Unavailable Care Physician, No Primary Primary Care Unava ilable [place]ton ORACLE FUSION DEVELOPER, Selina Attending Unavailable Care Physician, No Primary Primary Care Unava ilable Care Physician, No Primary Primary Care Unava ilable Oleghe, Efewongbe Attending Unavailable [place] ORACLE FUSION DEVELOPER, Selina Attending Unavailable Care Physician, No Primary Primary Care Unava ilable Care Physician, No Primary Primary Care Unava ilable Oleghe, Efewongbe Attending Unavailable [place] ORACLE FUSION DEVELOPER, Selina Attending Unavailable Care Physician, No Primary [...] (3 sources) Aspirin Drug Allergy 12-17-2023 Bleeding [facility] Comment on above: internal bleeding. (3 sources) Penicillins Allergy to substance 12-17-2023 Itching [facility] (1 source) Aspirin Drug Allergy 12-17-2023 [facility] Repository (1 source) Penicillins Drug allergy (disorder) 12-17-2023 [facility] Medications Current Medications Medication Drug Class(es) [...] February 18, 2024 12:00am Vit A,C And Y-Yoyiti-Mdanrzjn (Healthy Eyes) 300 mcg-200 mg-27 mg-2 mg Tablet (3 sources) Start: 12-20-2023 Vit A,C And X-Mdzngl-Kxwjlmlv (Healthy Eyes) 300 mcg-200 mg-27 mg-2 mg [...] 2015 12:00am December 17, 2023 6:41pm Vitamins A,C,V-Wril-Tlzmpm (Preservision Areds) 1 EACH capsule (3 sources) Start: 03-29-2015 End: 12-17-2023 take 1 capsule by mouth twice daily Vitamins A,C,H-Hkht-Ngpfzp (Preservision Areds) 1 EACH capsule Discontinued 1 [...] 05-05-2024 12-17-2023 Episodic Other aftercare (2 sources) marine oil terminal superintendent (current) use of anticoagulants; Translations: [marine oil terminal superintendent (current) use of anticoagulants] Onset: 05-05-2024 Episodic [...] C. difficile DNA NIKO+probe Ql (Unsp spec) [facility] Stool Clostridium difficile detectionOrdered By: Chanda Jade on 11-22-2024 C. difficile Ql (Stl) [facility] Knee 4 or More Viewson 02-17 Knee 4 or More Views [facility] [address] [place] [address] Knee 4 or More Views MR#: [id number] Acct: [id number] Name: MIRI GUZMAN V Rep #: [id number] : 1935 F 88 From: Ernie juarez MD PCP: Care Physician,No Primary Status: DEP AMB Study: Knee 4 or More Views Date of Exam: 02/18/24 Exam# [id number] Ordering Dr: Xiang Basurto MD [id number] INDICATION: pain EXAMINATION/TECHNIQUE : X-RAY - RIGHT [...] Xiang Basurto MD; No Primary Care Physician Deicer Inspector Pneumatic: Signed Normal [facility] Knee 4 or More Views [facility] [address] [place] [address] Knee 4 or More Views MR#: [id number] Acct: [id number] Name: MIRI GUZMAN Wendy Rep #: [id number] : 1935 F 88 From: Ernie juarez MD PCP: Care Physician,No Primary Status: DEP AMB Study: Knee 4 or More Views Date of Exam: 02/18/24 Exam# [id number] Ordering Dr: Xiang Basruto MD [id number] INDICATION: pain EXAMINATION/TECHNIQUE : X-RAY - LEFT [...] Xiang Basurto MD; No Primary Care Physician Deicer Inspector Pneumatic: Signed Normal [facility] Orthopedic Visit Reporton Orthopedic Visit Report [facility] [place] [address] OFFICE VISIT Date of Service: 02/18/24 MR#: [id number] Acct: [id number] Name: YECENIA GUZMANGILMER Wendy Rep #: [id number] : 1935 Provider: Dr. Xiang mar MD Age/Sex: 88/F [place] [facility] [place] Status: Signed with Addenda ADDENDUM by GRAY [...] Performing Provider: Xiang Basurto MD Performing Location: [facility] Administered by: Xiang Basurto MD on 02/18/24 09:01 Dose Route Admin Location Dispensed Lot Number Expiration Date NDC Man ufacturer 160 mg intra-articular Bilateral knee 4 mL [id number] 08/29/25 4914-2414-69 [facility] [place] [place] [facility] Date cc: * Signed Intake Vital [...] mostly in a wheelchair. Here with the care clinician from the [facility]. No recent treatment no [...] knees. 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 Patient has advanced degenerative changes both jeny (more content not included)... Normal [facility] COVID 19 AG RAPID (DARLINE Lewis)on 12-20-2023 SARS-CoV-2 (COVID-19) RNA NIKO+probe Ql (Unsp spec) SARS-CoV-2 (COVID 19) Negative RAPID METHOD Quidel Brigitte Analyzer GAETANO Normal [facility] Comment on above: Performed By: #### M 100.505 #### [facility] [address] [place] [address] Basic Metabolic Profile (BMP )on 12-19-2023 BUN/CRE 17.2 RATIO Normal 10-20 [facility] Comment on above: Performed By: #### L 500.2500 #### [facility] [address] [facility] [place] [place], [address] CA,Total 8.3 mg/dL Low 8.5-10.1 [facility] Comment on above: Performed By: #### L 500.2500 #### [facility] [address] [facility] [facility] [address] Chloride [Moles/Vol] 106 mmol/L Normal 98-107 [facility] Comment on above: Performed By: #### L 500.2500 #### [facility] [address] [facility] [place] [place], [address] CO2 [Moles/Vol] 22.0 mmol/L Normal 21.0-32.0 [facility] Comment on above: Performed By: #### L 500.2500 #### [facility] [address] [place], [address] Creatinine [Mass/Vol] 0.70 mg/dL Normal 0.55-1.02 [facility] Comment on above: Result Comment: The validity of the calculated GFR GFRAA in patients over 70 years has not been determined. Clinical correlation is essential. Performed By: #### L 500.2500 #### [facility] [address] [place], [address] ECRCL 41.22 ml/min Normal [facility] Comment on above: Performed By: #### L 500.2500 #### [facility] [address] [place], [address] EST GFR - AA 102 mL/min Normal >60 [facility] Comment on above: Result Comment: Afri can Grenadian GFR Calc Performed By: #### L 500.2500 #### [facility] [address] [place], [address] GAP 7 Normal 5-15 [facility] Comment on above: Performed By: #### L 500.2500 #### [facility] [address] [place], [address] GFR/1.73 sq M.predicted among non-blacks MDRD (S/P/Bld) [Vol rate/Area] 85 mL/min/{1.73_m2} Normal >60 [facility] Comment on above: Result Comment: Non- GFR Calc Performed By: #### L 500.2500 #### [facility] [address] [place], [address] Glucose [Mass/Vol] 79 mg/dL Normal 74-106 [facility] Comment on above: Performed By: #### L 500.2500 #### [facility] [address] [place], [address] Potassium [Moles/Vol] 3.6 mmol/L Normal 3.5-5.1 [facility] Comment on above: Result Comment: Slig ht Hemolysis, Result may be falsely increased. Performed By: #### L 500.2500 #### [facility] [address] [place], [place], [address] Sodium [Moles/Vol] 135 mmol/L Low 136-145 [facility] Comment on above: Performed By: #### L 500.2500 #### [facility] [address] [place], [place], [address] Urea nitrogen [Mass/Vol] 12 mg/dL Normal 7-18 [facility] Comment on above: Performed By: #### L 500.2500 #### [facility] [address] [place], [place], [address] Encounters Encounter Date Encounter Type Care Provider Facility Start: 11-22-2024 End: 11-22-2024 ambulatory No Primary Care Physician -Laboratory Specimen Start: 11-22-2024 End: 11-22-[address] Chanda Jade MD -Laboratory Specimen Work Phone: Start: 11-22-2024 ambulatory Chanda Jade OLS Fa cility:[facility] Start: 11-22-2024 Registered Referred Chanda Jade MD [facility] Start: 11-22-2024 End: 11-22-2024 ambulatory Chanda Jade Facility:[facility] Start: 11-09-2024 End: 11-09-2024 ambulatory No Primary Care Physician -[facility] Start: 11-09-2024 End: 11-09-2024 Patient encounter procedure Yves ROSARIO -[facility] Work Phone: Start: 10-10-2024 End: 10-10-2024 ambulatory No Primary Care Physician [facility] Start: 10-10-2024 End: 10-10-[address] Chanda Jade MD -[facility] Work Phone: Start: 08-29-2024 End: 08-29-2024 ambulatory No Primary Care Physician Facility:[facility] Start: 08-29-2024 End: 08-29-2024 Patient encounter procedure Selina Shah ORACLE FUSION DEVELOPER-C -[facility] Work Phone: Start: 08-01-2024 End: 08-01-2024 ambulatory Efewongbe Oleghe Facility:[facility] Start: 08-01-2024 End: 08-01-[address] Chanda Jade MD -[facility] Work Phone: Start: 07-20-2024 ambulatory Efewongbe Oleghe OLS Fa cility:[facility] Start: 07-13-2024 End: 07-13-2024 ambulatory Yves ROSAROI [place] [place] Start: 07-04-2024 ambulatory Efewongbe Oleghe OLS Fa cility:[facility] Start: 06-27-2024 End: 06-27-2024 ambulatory Selina Shah ORACLE FUSION DEVELOPER [place] [place] Start: 06-19-2024 ambulatory Efewongbe Oleghe OLS Fa cility:[facility] Start: 06-15-2024 ambulatory Efewongbe Oleghe OLS Fa cility:[facility] Start: 06-12-2024 End: 06-12-2024 ambulatory Selina Shah ORACLE FUSION DEVELOPER Facility:[facility] Start: 06-06-2024 End: 06-06-2024 ambulatory No Primary Care Physician Facility:[facility] Start: 06-05-2024 ambulatory Efewongbe Oleghe OLS Fa cility:[facility] Start: 05-16-2024 End: 05-16-2024 ambulatory Efewongbe Oleghe OLS Facility:[facility] Start: 05-02-2024 End: 05-02-2024 ambulatory Efewongbe Oleghe OLS Facility:[facility] Start: 05-01-2024 End: 05-01-2024 ambulatory Efewongbe Oleghe OLS Facility:[facility] Start: 04-18-2024 End: 04-18-2024 ambulatory Efewongbe Oleghe OLS Facility:[facility] Start: 04-11-2024 End: 04-11-2024 ambulatory Efewongbe Oleghe OLS Facility:[facility] Start: 04-04-2024 End: 04-04-2024 ambulatory No Primary Care Physician Facility:[facility] Start: 04-04-2024 End: 04-04-2024 ambulatory Efewongbe Oleghe OLS Facility:[facility] Start: 03-31-2024 End: 03-31-2024 ambulatory Efewongbe Oleghe OLS Facility:[facility] Start: 03-27-2024 End: 03-27-2024 ambulatory No Primary Care Physician Facility:[facility] Start: 03-27-2024 End: 03-27-2024 ambulatory Efewongbe Oleghe OLS Facility:[facility] Start: 03-14-2024 End: 03-14-2024 ambulatory Selina Shah ORACLE FUSION DEVELOPER Facility:[facility] Start: 03-13-2024 End: 03-13-2024 ambulatory Efewongbe Oleghe OLS Facility:[facility] Start: 03-06-2024 End: 03-06-2024 ambulatory Efewongbe Oleghe OLS Facility:[facility] Start: 2024 End: 2024 ambulatory Efewongbe Oleghe OLS Facility:[facility] Start: 02-29-2024 End: 02-29-2024 ambulatory Efewongbe Oleghe OLS Facility:[facility] Start: 02-28-2024 End: 02-28-2024 ambulatory Efewongbe Oleghe OLS Facility:[facility] Start: 02-24-2024 End: 02-24-2024 ambulatory No Primary Care Physician Facility:[facility] Start: 02-18-2024 End: 02-18-2024 ambulatory Xiang Anglinison Facility:[facility] Start: 02-02-2024 End: 02-02-2024 ambulatory No Primary Care Physician Facility:[facility] Start: 02-01-2024 End: 02-02-2024 ambulatory Efewongbe Oleghe OLS Facility:[facility] Start: 02-01-2024 End: 02-01-2024 ambulatory Efewongbe Oleghe OLS Facility:[facility] Start: 01-25-2024 ambulatory Efewongbe Oleghe OLS Fa cility:[facility] Start: 01-24-2024 End: 01-24-2024 ambulatory Selina Shah ORACLE FUSION DEVELOPER Facility:[facility] Start: 01-19-2024 End: 01-19-2024 ambulatory Selina Shah ORACLE FUSION DEVELOPER Facility:[facility] Start: 01-18-2024 ambulatory Chanda Jade OLS Fa cility:[facility] Start: 01-11-2024 ambulatory Efronak Grullone OLS Fa cility:[facility] Start: 01-04-2024 ambulatory Chanda Grullone OLS Fa cility:[facility] Start: 01-03-2024 End: 01-03-2024 ambulatory Selina Shah ORACLE FUSION DEVELOPER Facility:[facility] Start: 12-28-2023 End: 12-28-2023 ambulatory Chanda Jade Facility:[facility] Start: 12-24-2023 ambulatory Chanda Jade OLS Fa cility:[facility] Start: 12-21-2023 End: 12-21-2023 ambulatory Sleina Shah ORACLE FUSION DEVELOPER Facility:[facility] Procedures Date Procedure Procedure Detail Performing Clinician Start: 11-22-2024 Clostridium difficil e detection No Primary Care Physician Payers Date Payer Category Payer Unknown [id number] 2023 Self-pay 2023 Medicare [id number] 2001 Unknown [id number] Unknown [id number] 2.16.8 40.1.839612.3.579.2.462 Unknown [id number] 2..8 40.1.917973.3.579.2.462 Unknown [id number] 2..8 40.1.715092.3.579.2.462 Unknown [id number] 2.16.8 40.1.970210.3.579.2.462 Unknown [id number] 2.16.8 40.1.947674.3.579.2.462 Unknown [id number] 2.16.8 40.1.796087.3.579.2.462 Unknown [id number] 2.16.8 40.1.083835.3.579.2.462 Unknown [id number] 2.16.8 40.1.450419.3.579.2.462 Unknown [id number] 2.16.8 40.1.054687.3.579.2.462 Unknown [id number] 2.16.8 40.1.642171.3.579.2.462 Unknown [id number] 2.16.8 40.1.131172.3.579.2.462 Unknown [id number] 2.16.8 40.1.847318.3.579.2.462 Unknown [id number] 2.16.8 40.1.294570.3.579.2.462 Unknown [id number] 2.16.8 40.1.279436.3.579.2.462 Unknown [id number] 2.16.8 40.1.597526.3.579.2.462 Unknown [id number] 2.16.8 40.1.348591.3.579.2.462 Unknown [id number] 2.16.8 40.1.913555.3.579.2.462 Unknown [id number] 2.16.8 40.1.707538.3.579.2.462 Unknown [id number] 2.16.8 40.1.191720.3.579.2.462 Unknown [id number] 2.16.8 40.1.944474.3.579.2.462 Unknown [id number] 2.16.8 40.1.986994.3.579.2.462 Unknown [id number] 2.16.8 40.1.969937.3.579.2.462 Unknown [id number] 2.16.8 40.1.351981.3.579.2.462 Unknown [id number] 2.16.8 40.1.329152.3.579.2.462 Unknown [id number] 2.16.8 40.1.780935.3.579.2.462 Unknown [id number] 2.16.8 40.1.426413.3.579.2.462 Unknown [id number] 2.16.8 40.1.143648.3.579.2.462 Unknown [id number] 2.16.8 40.1.527223.3.579.2.462 Unknown [id number] 2.16.8 40.1.546223.3.579.2.462 Unknown [id number] 2.16.8 40.1.946359.3.579.2.462 Unknown [id number] 2.16.8 40.1.099195.3.579.2.462 Unknown [id number] 2.16.8 40.1.374818.3.579.2.462 Unknown [id number] 2.16.8 40.1.198421.3.579.2.462 Unknown [id number] 2.16.8 40.1.421742.3.579.2.462 Unknown [id number] 2.16.8 40.1.362822.3.579.2.462 Unknown [id number] 2.16.8 40.1.034315.3.579.2.462 Unknown [id number] 2.16.8 40.1.373549.3.579.2.462 Unknown [id number] 2.16.8 40.1.084073.3.579.2.462 Unknown [id number] 2.16.8 40.1.176448.3.579.2.462 Unknown [id number] 2.16.8 40.1.052781.3.579.2.462 Unknown [id number] 2.16.8 40.1.756796.3.579.2.462 Unknown [id number] 2.16.8 40.1.090473.3.579.2.462 Unknown [id number] 2.16.8 40.1.954492.3.579.2.462 Unknown [id number] 2.16.8 40.1.732892.3.579.2.462 Unknown [id number] 2.16.8 40.1.975296.3.579.2.462 Social History Date Type Detail Facility Start: 02-16-2024 Tobacco smoking stat us [facility] Never smoked tobacco (finding) [facility] Start: 03-29-2015 Alcohol Alcohol [facility] Start: 03-29-2015 Lives Lives [facility] Start: 03-29-2015 Tobacco Use Tobacco Use [facility] Start: 1935 Sex Assigned At Female [facility] Discharge summary note 12-20-2023 Note Date & Type Note Facility 12-20-2023 Note [facility] [address] [place] [address] Discharge Summary 12/20/23 1159 MR#: [id number] Acct: [id number] Name: MIRI GUZMAN V Rep #: [id number] : 1935 88 From: Demian English DO PCP: Care Physician,No Primary Status:ADM IN Location: [place] [address] Providers Date of Admission: 12/17/23 Date of Discharge: 12/20/23 Primary Care Physician: No Primary Care Phys Consultations 12/17/23 19:44 Consult: Podiatry Routine Consulting Provider: Rosendo Arreola Reason for Consult: nail care EMERGENT Consult: No MD Notified: Yes Date Notified: 12/17/23 Time Notified: 18:37 Method of Notification: Text 12/17/23 22:02 Consult: Onc/Wound/shank pinner Routine Comment: Reason for Consult:: left abdomen [...] on Ancef at this time #4 generalized debility/gwav-jybojqo-jjaejpa has been seen by PT and OT, [...] was seen in the emergency room at [facility] due to a decline in her [...] over this area. Patient was admitted to [place] [address], she was given potassium replacement and seen [...] Lab / Microbiol (more content not included)... [facility] Consultation note 12-20-2023 Note Date & Type Note Facility 12-20-2023 Note [facility] Records [facility] [address] [place] [address] Consultation 12/20/23 0739 MR#: [id number] Acct: [id number] Name: MEGANMIRI V Rep #: [id number] : 1935 88 From: Rosendo Arreola DPM PCP: Care Physician,No Primary Status:ADM IN [facility] Assessment Plan Assessment/Plan (1) Nail dystrophy: (2) [...] is resting in bed, no other complaints. [facility] Medical History Non-smoker Medical History no medical [...] applicable): CC: No Primary Care Physician Signed [facility] Evaluation note Note Date & Type Note Facility Evaluation note No assessment information availa ble [facility] Work Phone: Reason for referral (narrative) Note Date & Type Note Facility Reason for referral (narrative) No reason for referral information available [facility] Work Phone: Chief Complaint and Reason for [...] End: August 29, 2024 Selina Shah NP, ORACLE FUSION DEVELOPER-C Attending Provider Active Start: August 29, 2024 [...] 2024 End: August 29, 2024 Selina Shah ORACLE FUSION DEVELOPER, ORACLE FUSION DEVELOPER-C Attending Provider Active Start: August 29, 2024 [...] section and content) DATE CREATED AUTHOR 12/17/2024 [facility] FOR RECORDS PERTAINING TO PATIENTS WHO [...] BE BASED ON THE PRIMARY CLINICAL RECORDS. [employer] provides no warranty or guarantee of the accuracy or completeness of information in this document.
[2025-01-02 09:39] LABS: Hematocrit 40.0 % (37-47); Hemoglobin 12.7 g/dL (12.0-15.0); Immature Granulocytes Count 0.020 X10^3/uL (0.0-0.0); Mean Corp Hgb Conc 31.8 g/dL (32-36); Mean Corpuscular Volume 91.7 fL (81-99); Mean Platelet Vol. 10.0 fl (6.2-12.0); NRBC Flagged by Analyzer 0 % (0-5); Platelet Count 263 K/mm3 (150-450); RBC Distribution Width CV 13.2 % (11.6-14.6); RBC Distribution Width SD 45.1 fl (35.1-43.9); Red Blood Count 4.36 M/mm3 (4.2-5.4); White Blood Count 6.6 K/mm3 (4.4-11.0)
[2025-01-02 10:04] LABS: AST(SGOT) 23 U/L (<=31); Alanine Aminotransfer ALT/SGPT 14 U/L (<=34); Albumin, Serum 3.8 g/dL (3.4-4.8); Alkaline Phosphatase 116 U/L (35-104); Anion Gap 12 (5-15); BUN 25 mg/dL (4-19); BUN/Creat Ratio 29.3 RATIO (10-20); Calcium,Total 9.2 mg/dL (7.6-11.0); Carbon Dioxide 22.8 mmol/L (21.0-32.0); Chloride 106 mmol/L (98-108); Globulin 2.4 g/dL (2.2-4.2); Glucose 71 mg/dL (70-99); Potassium 4.4 mmol/L (3.3-5.1)
== END ==
LOC: OLS.WHLCAR 05:00
PROVIDERS: Visit Provider Internal Medicine
DX: E87.6 Hypokalemia (principal); F02.811 Dementia in other diseases classified elsewhere, unspecified severity, with agitation; G30.9 Alzheimer's disease, unspecified
CPT/HCPCS: 36415; 80053; 85025